=== PATIENT | female | born 1945 | race Caucasian/White ===

== ENCOUNTER 2016-12-16 18:40 | Emergency (ER) | payer OTHER ==
[~2016-12-16] VITALS: Ht 149.9 cm; Wt 101.0 kg
[~2016-12-16 18:40] MED LIST: ACET-1256 PO; ATOR-24 PO; CARV3.12 PO; CLOP1TAB54 PO; DIPH25CA37 PO; ERGO1CAP35 PO; FRS/40 PO; HYDR-4079 PO; ISOS30TA3 PO; LEVO150T PO; LOSA25TA18 PO; METO2.5T PO; NYST80OI TOP; PEDICHW50 PO; SERT100T PO
[2016-12-16 19:02] VITALS: BP 135/76; PULSE 90; TEMP 37; O2SAT 97; Ht 149.9 cm; Wt 101.0 kg
[2016-12-16] MEDS ORDERED: HYDROCODONE/ACETAMOPHEN 5/325MG TAB PO ONE (19:30)
--- NOTE | 2016-12-16 23:20 | EMERGENCY ROOM VISIT NOTE ---
History First contact with patient: 19:09 Chief Complaint: PAIN (GENERALIZED) Stated Complaint: PAIN History of Present Illness The patient is a 71 year old female who presents to the Emergency Room with complaints of generalized pain from the top of her head all the way down to her toes. The patient states that she has a long-standing history of pain with multiple back surgeries performed locally. She does not have a recent injury or trauma. No fevers or chills. The patient is specifically requesting that we provide her Vicodin, as she was evidently on this through her primary care physician's office. The patient states that "they stopped giving it to me", and she is in the process of establishing with a new primary care physician. Evidently this appointment does not happen for another 2 weeks patient rates her overall discomfort a 10/10. Review of Systems More than 10 systems were reviewed and otherwise negative with the exception of history of present illness. Past Medical/Surgical History Medical Problems: (1) Chronic back pain (2) Chronic knee pain Family History No pertinent family history Social History Smoking Status: Current Every Day Smoker Alcohol Use: none Marital Status: Housing Status: lives alone Occupation Status: retired, disabled Allergies Coded Allergies: Adhesives (Verified Allergy, Severe, HIVES, 11/20/13) Aspirin (Verified Allergy, Intermediate, HIVES, 11/20/13) NSAIDs (Verified Allergy, Intermediate, HIVES, 11/20/13) Physical Exam Vital Signs Date Time Temp Pulse Resp B/P Pulse Ox O2 Delivery O2 Flow Rate FiO2 12/16/16 19:02 37.0 90 18 135/76 97 Room Air Pain Rating (0-10): 9.0 Physical Exam VITALS: Vitals are noted on the nurse's note and reviewed by myself. Vital signs stable. GENERAL: Well-developed, well-nourished, white female, who is in no acute distress and seated comfortably in a wheelchair HEAD: Normocephalic atraumatic. HEART: Regular rate and rhythm without murmurs gallops or rubs. LUNGS: Clear to auscultation bilaterally without wheezes, rales or rhonchi. No retractions or accessory muscle use. Medical Decision & Procedures Medications Administered Medications (Trade) Dose Ordered Sig/Tyron Route Start Time Stop Time Status Last Admin Dose Admin Acetaminophen/ Hydrocodone Bitart ([place] 5/325 Tab) 1 tab NOW ONCE PO 12/16/16 19:30 12/16/16 19:31 DC 12/16/16 19:36 1 TAB ED Course Physical exam and history were performed. Nursing notes and EMR were reviewed. Patient appears to have reports of generalized pain that is chronic in nature. The patient is specifically requesting Vicodin for pain control. She was evidently on this medication for several years and recently this was discontinued by her primary care physician. The patient is not able to adequately explain why this occurred. I was able to review the [facility] and the [place] drug monitoring program site. The patient was previously on 6 pills of Vicodin 10/ 325 mg for at least 8 months. Because of her advanced age and reliance on high doses of narcotics the primary care physician recommended the patient follow with pain management. Evidently despite this recommendation, the patient refused to be seen by the pain clinic. Over the course of several months the patient was educated that they would no longer continue providing her narcotics. The patient was ultimately placed on a tapering dose of Vicodin in September 2016, and she would've completed this sometime in October 2016. In response to being taken off narcotics, the patient fired her primary care physician, and is now in the process of reestablishing with another provider. The patient has not had Vicodin in at least one month. I discussed these findings with the patient, who continue to give alternative accounts of the recent history. I thoroughly explained to the patient how the emergency department was not able to provide chronic pain medication. These services must be provided to her primary care physician, who she fired for not giving narcotics. The patient has yet to establish with a new primary care physician, and refuses pain management referrals. I explained that I would treat the patient's pain here in the emergency department with 1 Vicodin 5/325 mg by mouth. The patient must contact her PCPs office for further care. She was otherwise invited back to the ER with any new, worsening, or concerning symptoms. Prior to discharge, the patient was overheard yelling at her family "I can't believe I spend $75 and all I got was one Vicodin". I do suspect strong drug-seeking behavior as one of the primary reasons for the patient's presentation today. I do not feel she should receive prescriptions in the future for controlled substances. The chart was completed utilizing [employer] Speech Voice Recognition Software. Grammatical errors, random word insertions, pronoun errors, and incomplete sentences are an occasional consequence of this system due to software limitations, ambient noise, and hardware issues. Any formal questions or concerns about the content, text, or information contained within the body of this dictation should be directly addressed to the provider for clarification. . Medical Decision Differential diagnosis includes, but is not limited to: Chronic pain, narcotic withdrawal, drug-seeking behavior, and others Impression Primary Impression: Generalized pain Departure Information Dispostion Home / Self-Care Condition GOOD Forms HOME CARE DOCUMENTATION FORM, IMPORTANT VISIT INFORMATION Patient Instructions My [facility] Additional Instructions You were seen and evaluated today on an emergency basis only. This is not a substitute for, or an effort to provide, complete comprehensive medical care. It is not possible to recognize and treat all injuries or illnesses in a single emergency department visit. For this reason it is recommended that you followup with your primary care physician as scheduled in 2 weeks for ongoing care and management. The emergency department is not able to provide ongoing pain control services. These services are provided by your primary care physician or your pain management clinic. Do not drink or drive today as you were provided narcotic medications here in the department. You are welcome to return to the emergency department anytime with new, worsening, or concerning symptoms.
[2017-02-08] MEDS ORDERED: HYDR2.5O TOP (11:15)
[2017-02-08] MEDS ORDERED: NYSTCRE11 (11:15)
[2017-02-08] MEDS ORDERED: NITR0.4S UT (11:15)
[2017-02-08] MEDS ORDERED: LEVO125T5 PO (11:15)
[2017-02-08] MEDS ORDERED: ACET-1256 PO (11:15)
[2017-02-08] MEDS ORDERED: ERGO500037 PO (11:15)
[2017-02-08] MEDS ORDERED: DIPH25CA65 PO (11:15)
[2017-02-08] MEDS ORDERED: CLOP1TAB15 PO (11:15)
[2017-02-08] MEDS ORDERED: GLC/500 PO (11:15)
[2017-02-08] MEDS ORDERED: CARV3.122 PO (11:15)
[2017-02-08] MEDS ORDERED: VNTHFA/IN INH (11:15)
[2017-02-08] MEDS ORDERED: CYAN1DRO IM (11:15)
[2017-02-08] MEDS ORDERED: SERT-234 PO (11:15)
[2017-02-08] MEDS ORDERED: ATOR-26 PO (11:15)
[2017-02-08] MEDS ORDERED: CYCL10TA6 PO (11:15)
[2017-02-08] MEDS ORDERED: LOSA1TAB PO (11:15)
[2017-02-08] MEDS ORDERED: ISOS30TA35 PO (11:15)
[2017-02-08] MEDS ORDERED: FRS/40 PO ×2 (11:15)
[2017-04-13] MEDS ORDERED: NORT25CA PO (15:33)
== END 2016-12-16 19:44 | disposition home or self-care (01) ==
LOC: C.EDB 18:42 → C.EDD 19:44
DX: R52 Pain, unspecified (principal); F17.210 Nicotine dependence, cigarettes, uncomplicated

== ENCOUNTER 2017-08-21 19:55 | Inpatient (IN) | payer OTHER ==
[~2017-08-21] VITALS: Ht 162.6 cm; Wt 90.7 kg
[~2017-08-21 19:55] MED LIST changes: -ATOR-24 PO; +ATOR-26 PO; -CARV3.12 PO; +CARV3.122 PO; +CLOP1TAB15 PO; -CLOP1TAB54 PO; +CYAN1DRO IM; -DIPH25CA37 PO; +DIPH25CA65 PO; -ERGO1CAP35 PO; +ERGO500037 PO; +GLC/500 PO; -HYDR-4079 PO; +HYDR2.5O TOP; -ISOS30TA3 PO; +ISOS30TA35 PO; +LEVO125T5 PO; -LEVO150T PO; +LOSA1TAB PO; -LOSA25TA18 PO; -METO2.5T PO; +NITR0.4S UT; +NORT25CA PO; -NYST80OI TOP; +NYSTCRE11; -PEDICHW50 PO; +SERT-234 PO; -SERT100T PO; +VNTHFA/IN INH
[2017-08-21] MEDS ORDERED: SODIUM CHLORIDE 0.9% 500ML 500 ML IV STA (20:18)
[2017-08-21 20:48] LABS: EOS % 0.4 %; EOS ABS # 0.03 K/uL (0-0.5); HEMATOCRIT 37.3 % (37-47); HEMOGLOBIN 12.3 g/dL (12.0-16.0); IG# 0.02 K/uL (0.00-0.02); LYMPH % 12.3 %; LYMPH ABS # 0.93 K/uL (1.2-3.4); MEAN CELL VOLUME 99.7 fL (80-100); MEAN CORPUSCULAR HEMOGLOBIN 32.9 pg (25-34); MEAN PLATELET VOLUME 11.1 fL (7.4-10.4); MONO % 13.8 %; MONO ABS # 1.04 K/uL (0.11-0.59); NEUT % 73.2 %; NEUT ABS # 5.54 K/uL (1.4-6.5); PLATELET COUNT 132 K/uL (130-400); RED CELL DISTRIBUTION WIDTH CV 13.4 % (11.5-14.5); RED CELL DISTRIBUTION WIDTH SD 48.5 fL (36.4-46.3); WHITE BLOOD COUNT 7.56 K/uL (4.8-10.8)
[2017-08-21 21:06] LABS: INR 1.1 (0.9-1.1)
--- NOTE | 2017-08-21 21:30 | DIAGNOSTIC IMAGING REPORT ---
CT OF THE HEAD WITHOUT CONTRAST CLINICAL HISTORY: Fall. Evaluate for bleed. COMPARISON STUDY: No previous studies for comparison. CT DOSE: 1074.89 mGy.cm TECHNIQUE: Helical axial images of the head were obtained without IV contrast. Automated exposure control was utilized for the study. A dose lowering technique was utilized adhering to the principles of ALARA. FINDINGS: No acute intracranial hemorrhage, midline shift or mass effect is present. Ventricular system is normal. Basilar cisterns are patent. There are no extra-axial collections. White matter hypodensities suggest small vessel disease. A small radiodensity within the posterior aspect of the right globe is unchanged since CT of October 14, 2012. There is no calvarial fracture. IMPRESSION: 1. No acute intracranial findings. 2. No calvarial fracture. Electronically signed by: Servando Culp M.D. 08/21/2017 9:29 PM Dictated Date/Time: 08/21/2017 9:25 PM
--- NOTE | 2017-08-21 21:49 | DIAGNOSTIC IMAGING REPORT ---
CHEST ONE VIEW PORTABLE CLINICAL HISTORY: Left-sided body pain following fall. COMPARISON STUDY: Chest radiograph January 16, 2015. FINDINGS: Patient is rotated which accentuates mediastinal widening. Allowing for patient rotation, the cardiomediastinal silhouette is likely unchanged. There is mild right lower lung opacity. There is no evidence for pulmonary edema. No pneumothorax or pleural effusion is noted. IMPRESSION: 1. Mild right lower lung opacity which could reflect atelectasis or an infectious process. Radiographic follow-up is recommended. 2. Rotated study. 3. No pneumothorax. 4. Cardiomegaly without evidence for pulmonary edema. Electronically signed by: Servando Culp M.D. 08/21/2017 9:47 PM Dictated Date/Time: 08/21/2017 9:44 PM
--- NOTE | 2017-08-21 21:50 | DIAGNOSTIC IMAGING REPORT ---
L SHOULDER MIN 2 VIEWS ROUTINE CLINICAL HISTORY: Left shoulder pain following fall. COMPARISON: None FINDINGS: Alignment of the left shoulder is anatomic. No acute fracture is identified. Calcific material along the superolateral aspect of the left humeral head could reflect calcific tendinitis or chondrocalcinosis. There is moderate arthritis of the left acromioclavicular joint and mild to moderate arthritis of the left glenohumeral joint. IMPRESSION: No acute fracture or dislocation of the left shoulder. Electronically signed by: Servando Culp M.D. 08/21/2017 9:49 PM Dictated Date/Time: 08/21/2017 9:47 PM
--- NOTE | 2017-08-21 21:54 | DIAGNOSTIC IMAGING REPORT ---
L HUMERUS MIN 2 VIEWS ROUTINE CLINICAL HISTORY: Left arm pain following fall. COMPARISON: None FINDINGS: There is no acute fracture of the left humerus. Alignment of the left elbow and shoulder is anatomic. Moderate degenerative changes are present. There are a few possible age indeterminate nondisplaced left-sided rib fractures. IMPRESSION: 1. No acute fracture of the left humerus. 2. Several possible acute nondisplaced left lateral rib fractures. Electronically signed by: Servando Culp M.D. 08/21/2017 9:53 PM Dictated Date/Time: 08/21/2017 9:49 PM
--- NOTE | 2017-08-21 21:56 | DIAGNOSTIC IMAGING REPORT ---
PELVIS 1 OR 2 VIEW ROUTINE CLINICAL HISTORY: Pain following fall. Evaluate for fracture. COMPARISON STUDY: CT of the abdomen and pelvis January 17, 2015. FINDINGS: Positioning on this exam was difficult. However, no acute fracture within the pelvis or hips was identified. Postoperative findings within the lumbosacral spine are noted. A few mildly dilated loops of small bowel are noted. There is gas within portions of the colon. IMPRESSION: 1. Study compromised by difficulty with positioning. However, no acute fracture identified within the pelvis or hips. 2. A few mildly dilated loops of small bowel without convincing evidence for a small bowel obstruction. Electronically signed by: Servando Culp M.D. 08/21/2017 9:55 PM Dictated Date/Time: 08/21/2017 9:53 PM
--- NOTE | 2017-08-21 21:59 | DIAGNOSTIC IMAGING REPORT ---
CT OF THE CERVICAL SPINE WITHOUT CONTRAST CLINICAL HISTORY: Fall. Evaluate for fracture. COMPARISON STUDY: Neck CT October 14, 2012. TECHNIQUE: Helical axial images of the cervical spine were obtained without IV contrast. Sagittal and coronal reconstructions were viewed. A dose lowering technique was utilized adhering to the principles of ALARA. FINDINGS: There is mild rightward curvature of the cervical spine which may be positional. Craniocervical junction is in intact. There is no acute cervical spine fracture. Facet joints are intact. There is moderate to severe multilevel degenerative disc disease and moderate multilevel facet arthrosis of the cervical spine. Marked degenerative changes at the C1-C2 articulation are noted. There is no prevertebral edema. There is mild loss of height of the inferior endplate of T2. This suggests an age indeterminate mild compression fracture. IMPRESSION: 1. No acute cervical spine fracture or subluxation. 2. Mild age indeterminate compression fracture of the inferior endplate of T2. Electronically signed by: Servando Culp M.D. 08/21/2017 9:58 PM Dictated Date/Time: 08/21/2017 9:29 PM
[2017-08-21] MEDS ORDERED: FENTANYL CITRATE INJ 50 MCG/1 ML 2 ML VIAL IV STA (22:11)
[2017-08-21] MEDS ORDERED: ONDANSETRON INJ 2 MG/ML 2 ML VIAL IV STA (22:11)
--- NOTE | 2017-08-21 22:54 | DIAGNOSTIC IMAGING REPORT ---
L RIBS UNILATERAL MIN 2 VIEWS CLINICAL HISTORY: Fall. Evaluate for fracture. COMPARISON STUDY: Chest radiograph January 16, 2015. FINDINGS: There is a possible acute nondisplaced fracture of the anterior left sixth rib. No left pneumothorax is identified. Postoperative findings within the lumbosacral spine are noted as well as left upper quadrant bowel anastomosis. IMPRESSION: Possible acute nondisplaced fracture of the anterior left sixth rib. Electronically signed by: Servando Culp M.D. 08/21/2017 10:52 PM Dictated Date/Time: 08/21/2017 10:47 PM
[2017-08-21 23:01] LABS: ALBUMIN 3.7 gm/dl (3.4-5.0); ALKALINE PHOSPHATASE 103 U/L (45-117); ALT/SGPT 30 U/L (12-78); BLOOD UREA NITROGEN 30 mg/dl (7-18); CARBON DIOXIDE 22 mmol/L (21-32); CREATININE 0.97 mg/dl (0.60-1.20); GLUCOSE 142 mg/dl (70-99); POTASSIUM 3.7 mmol/L (3.5-5.1); SODIUM 138 mmol/L (136-145)
[2017-08-21 23:07] LABS: AST/SGOT 23 U/L (15-37); CKMB 4.2 ng/ml (0.5-3.6); TOTAL PROTEIN 7.2 gm/dl (6.4-8.2)
--- NOTE | 2017-08-21 23:49 | EMERGENCY ROOM VISIT NOTE ---
History Report prepared by Erin: Ame Garmajo Under the Supervision of: Dr. Darshan García M.D. First contact with patient: 20:08 Chief Complaint: FALL Stated Complaint: LETHARGIC History of Present Illness The patient is a 72 year old female who presents to the Emergency Room with complaints of a fall today. She reports she hit her head and has a headache and pain all over her body. Her pain is worse on her left side. Movement of her arm worsens her pain. The patient denies any LOC, fever, SOB, vomiting. She has history of aneurysms in her abdomen which are nonoperable. She is accompanied by her daughter who reports she has fallen 3 times in the past week. The patient states that she starts to lose her balance and then falls to the ground. She does not have any weakness prior to falling or any symptoms such as chest pain or palpitations prior to falling. Her daughter reports she has also been hallucinating lately and think there is stuff on her hands. The patient reports she has never had a stroke. As per nursing, the medic says she has Raynaud's. The patient fell in the middle of the night and was not able to get up by herself. 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 A total of 10 systems reviewed and were otherwise negative. Past Medical & Surgical Medical Problems: (1) Chronic back pain (2) Chronic knee pain (3) Concussion Family History Patient reports no known family medical history. Social History Smoking Status: Current Every Day Smoker Alcohol Use: none Marital Status: Housing Status: lives alone Occupation Status: retired, disabled Current/Historical Medications Scheduled Atorvastatin (Lipitor), 80 MG PO DAILY Carvedilol (Coreg), 3.125 MG PO BID Clopidogrel (Plavix), 75 MG PO DAILY Cyanocobalamin (Vitamin B12), 1,000 MCG IM MONTHLY Ergocalciferol (Vitamin D 80515 Unit), 50,000 UNIT PO 2XWK Furosemide (Lasix), 80 MG PO QAM Furosemide (Lasix), 40 MG PO QPM Isosorbide Mononitrate Ext Rel (Imdur Ext Rel), 1 TAB PO QAM Levothyroxine Sodium (Levothyroxine Sodium), 1 TAB PO DAILY Losartan Potassium (Cozaar), 25 MG PO DAILY Metformin Hcl (Glucophage), 500 MG PO BID Nitroglycerin (Nitrostat), 0.4 MG UT PRN Nortriptyline (Pamelor), 75 MG PO HS Sertraline (Zoloft), 200 MG PO DAILY Scheduled PRN Acetaminophen (Tylenol), 1,000 MG PO Q8 PRN for Pain Albuterol Hfa (Ventolin Hfa), 2-4 PUFFS INH Q6H PRN for Shortness of Breath Diphenhydramine Hcl (Benadryl Allergy), 1 CAP PO HS PRN for Itching Allergies Coded Allergies: Adhesives (Verified Allergy, Severe, HIVES, 11/20/13) Aspirin (Verified Allergy, Intermediate, HIVES, 11/20/13) NSAIDs (Verified Allergy, Intermediate, HIVES, 11/20/13) Physical Exam Vital Signs Date Time Temp Pulse Resp B/P (MAP) Pulse Ox O2 Delivery O2 Flow Rate FiO2 08/21/17 22:23 107 20 146/64 95 Room Air 08/21/17 20:10 37.0 101 20 112/88 95 Room Air Physical Exam Constitutional: Vital signs reviewed. Eyes: Pupils are equal round reactive to light. Conjunctiva are noninjected. ENT: Pharynx is clear without erythema or exudate. Mucous membranes are dry. Neck supple without meningeal signs. no midline tenderness to the cervical spine. Respiratory: Clear to auscultation bilaterally. Breath sounds are equal bilaterally. Cardiovascular: Regular rate and rhythm. No rubs or gallops. GI: Soft, nondistended and nontender. Bowel sounds are present. Musculoskeletal: Diffuse tenderness to the mid left humerus. Distal pulse intact and no significant hip tenderness. Integumentary: No cyanosis. Neurological: The patient is awake and alert. No focal deficits. Cranial nerves 2-12 intact. Gross motor function and sensation intact throughout extremities. Psychiatric: Normal affect. Medical Decision & Procedures ER Provider Diagnostic Interpretation: Radiology results as stated below per my review and the radiologist's interpretation: L SHOULDER MIN 2 VIEWS ROUTINE CLINICAL HISTORY: Left shoulder pain following fall. COMPARISON: None FINDINGS: Alignment of the left shoulder is anatomic. No acute fracture is identified. Calcific material along the superolateral aspect of the left humeral head could reflect calcific tendinitis or chondrocalcinosis. There is moderate arthritis of the left acromioclavicular joint and mild to moderate arthritis of the left glenohumeral joint. IMPRESSION: No acute fracture or dislocation of the left shoulder. Electronically signed by: Servando Culp M.D. 08/21/2017 9:49 PM Dictated Date/Time: 08/21/2017 9:47 PM PELVIS 1 OR 2 VIEW ROUTINE CLINICAL HISTORY: Pain following fall. Evaluate for fracture. COMPARISON STUDY: CT of the abdomen and pelvis January 17, 2015. FINDINGS: Positioning on this exam was difficult. However, no acute fracture within the pelvis or hips was identified. Postoperative findings within the lumbosacral spine are noted. A few mildly dilated loops of small bowel are noted. There is gas within portions of the colon. IMPRESSION: 1. Study compromised by difficulty with positioning. However, no acute fracture identified within the pelvis or hips. 2. A few mildly dilated loops of small bowel without convincing evidence for a small bowel obstruction. Electronically signed by: Servando Culp M.D. 08/21/2017 9:55 PM Dictated Date/Time: 08/21/2017 9:53 PM L HUMERUS MIN 2 VIEWS ROUTINE CLINICAL HISTORY: Left arm pain following fall. COMPARISON: None FINDINGS: There is no acute fracture of the left humerus. Alignment of the left elbow and shoulder is anatomic. Moderate degenerative changes are present. There are a few possible age indeterminate nondisplaced left-sided rib fractures. IMPRESSION: 1. No acute fracture of the left humerus. 2. Several possible acute nondisplaced left lateral rib fractures. Electronically signed by: Servando Culp M.D. 08/21/2017 9:53 PM Dictated Date/Time: 08/21/2017 9:[address] OF THE HEAD WITHOUT CONTRAST CLINICAL HISTORY: Fall. Evaluate for bleed. COMPARISON STUDY: No previous studies for comparison. CT DOSE: 1074.89 mGy.cm TECHNIQUE: Helical axial images of the head were obtained without IV contrast. Automated exposure control was utilized for the study. A dose lowering technique was utilized adhering to the principles of ALARA. FINDINGS: No acute intracranial hemorrhage, midline shift or mass effect is present. Ventricular system is normal. Basilar cisterns are patent. There are no extra-axial collections. White matter hypodensities suggest small vessel disease. A small radiodensity within the posterior aspect of the right globe is unchanged since CT of October 14, 2012. There is no calvarial fracture. IMPRESSION: 1. No acute intracranial findings. 2. No calvarial fracture. Electronically signed by: Servando Culp M.D. 08/21/2017 9:29 PM Dictated Date/Time: 08/21/2017 9:25 PM CHEST ONE VIEW PORTABLE CLINICAL HISTORY: Left-sided body pain following fall. COMPARISON STUDY: Chest radiograph January 16, 2015. FINDINGS: Patient is rotated which accentuates mediastinal widening. Allowing for patient rotation, the cardiomediastinal silhouette is likely unchanged. There is mild right lower lung opacity. There is no evidence for pulmonary edema. No pneumothorax or pleural effusion is noted. IMPRESSION: 1. Mild right lower lung opacity which could reflect atelectasis or an infectious process. Radiographic follow-up is recommended. 2. Rotated study. 3. No pneumothorax. 4. Cardiomegaly without evidence for pulmonary edema. Electronically signed by: Servando Culp M.D. 08/21/2017 9:47 PM Dictated Date/Time: 08/21/2017 9:[address] OF THE CERVICAL SPINE WITHOUT CONTRAST CLINICAL HISTORY: Fall. Evaluate for fracture. COMPARISON STUDY: Neck CT October 14, 2012. TECHNIQUE: Helical axial images of the cervical spine were obtained without IV contrast. Sagittal and coronal reconstructions were viewed. A dose lowering technique was utilized adhering to the principles of ALARA. FINDINGS: There is mild rightward curvature of the cervical spine which may be positional. Craniocervical junction is in intact. There is no acute cervical spine fracture. Facet joints are intact. There is moderate to severe multilevel degenerative disc disease and moderate multilevel facet arthrosis of the cervical spine. Marked degenerative changes at the C1-C2 articulation are noted. There is no prevertebral edema. There is mild loss of height of the inferior endplate of T2. This suggests an age indeterminate mild compression fracture. IMPRESSION: 1. No acute cervical spine fracture or subluxation. 2. Mild age indeterminate compression fracture of the inferior endplate of T2. Electronically signed by: Servando Culp M.D. 08/21/2017 9:58 PM Dictated Date/Time: 08/21/2017 9:29 PM L RIBS UNILATERAL MIN 2 VIEWS CLINICAL HISTORY: Fall. Evaluate for fracture. COMPARISON STUDY: Chest radiograph January 16, 2015. FINDINGS: There is a possible acute nondisplaced fracture of the anterior left sixth rib. No left pneumothorax is identified. Postoperative findings within the lumbosacral spine are noted as well as left upper quadrant bowel anastomosis. IMPRESSION: Possible acute nondisplaced fracture of the anterior left sixth rib. Electronically signed by: Servando Culp M.D. 08/21/2017 10:52 PM Dictated Date/Time: 08/21/2017 10:47 PM Laboratory Results 08/21/17 20:31 Red Blood Count 3.74, Mean Corpuscular Volume 99.7, Mean Corpuscular Hemoglobin 32.9, Mean Corpuscular Hemoglobin Concent 33.0, Mean Platelet Volume 11.1, Neutrophils (%) (Auto) 73.2, Lymphocytes (%) (Auto) 12.3, Monocytes (%) (Auto) 13.8, Eosinophils (%) (Auto) 0.4, Basophils (%) (Auto) 0.0, Neutrophils # (Auto ) 5.54, Lymphocytes # (Auto) 0.93, Monocytes # (Auto) 1.04, Eosinophils # (Auto ) 0.03, Basophils # (Auto) 0.00 08/21/17 22:11 Test 08/21/17 20:31 08/21/17 21:03 08/21/17 22:11 White Blood Count 7.56 K/uL (4.8-10.8) Red Blood Count 3.74 M/uL (4.2-5.4) Hemoglobin 12.3 g/dL (12.0-16.0) Hematocrit 37.3 % (37-47) Mean Corpuscular Volume 99.7 fL (80-100) Mean Corpuscular Hemoglobin 32.9 pg (25-34) Mean Corpuscular Hemoglobin Concent 33.0 g/dl (32-36) Platelet Count 132 K/uL (130-400) Mean Platelet Volume 11.1 fL (7.4-10.4) Neutrophils (%) (Auto) 73.2 % Lymphocytes (%) (Auto) 12.3 % Monocytes (%) (Auto) 13.8 % Eosinophils (%) (Auto) 0.4 % Basophils (%) (Auto) 0.0 % Neutrophils # (Auto) 5.54 K/uL (1.4-6.5) Lymphocytes # (Auto) 0.93 K/uL (1.2-3.4) Monocytes # (Auto) 1.04 K/uL (0.11-0.59) Eosinophils # (Auto) 0.03 K/uL (0-0.5) Basophils # (Auto) 0.00 K/uL (0-0.2) RDW Standard Deviation 48.5 fL (36.4-46.3) RDW Coefficient of Variation 13.4 % (11.5-14.5) Immature Granulocyte % (Auto) 0.3 % Immature Granulocyte # (Auto) 0.02 K/uL (0.00-0.02) Prothrombin Time 11.4 SECONDS (9.0-12.0) Prothromb Time International Ratio 1.1 (0.9-1.1) Activated Partial Thromboplast Time 30.0 SECONDS (21.0-31.0) Partial Thromboplastin Ratio 1.2 Urine Color YELLOW Urine Appearance CLEAR (CLEAR) Urine pH 5.0 (4.5-7.5) Urine Specific [place] 1.023 (1.000-1.030) Urine Protein NEG (NEG) Urine Glucose (UA) NEG (NEG) Urine Ketones TRACE (NEG) Urine Occult Blood NEG (NEG) Urine Nitrite NEG (NEG) Urine Bilirubin NEG (NEG) Urine Urobilinogen NEG (NEG) Urine Leukocyte Esterase TRACE (NEG) Urine WBC (Auto) 1-5 /hpf (0-5) Urine RBC (Auto) 5-10 /hpf (0-4) Urine Hyaline Casts (Auto) 1-5 /lpf (0-5) Urine Epithelial Cells (Auto) 5-10 /lpf (0-5) Urine Bacteria (Auto) NEG (NEG) Anion Gap 9.0 mmol/L (3-11) Est Creatinine Clear Calc Drug Dose 61.5 ml/min Estimated GFR () 68.1 Estimated GFR (Non- 58.8 BUN/Creatinine Ratio 31.0 (10-20) Calcium Level 10.0 mg/dl (8.5-10.1) Total Bilirubin 1.1 mg/dl (0.2-1) Direct Bilirubin 0.4 mg/dl (0-0.2) Aspartate Amino Transf (AST/SGOT) 23 U/L (15-37) Alanine Aminotransferase (ALT/SGPT) 30 U/L (12-78) Alkaline Phosphatase 103 U/L (45-117) Total Creatine Kinase 210 U/L (26-192) Creatine Kinase MB 4.2 ng/ml (0.5-3.6) Creatine Kinase MB Ratio 2.0 (0-3.0) Troponin I < 0.015 ng/ml (0-0.045) Total Protein 7.2 gm/dl (6.4-8.2) Albumin 3.7 gm/dl (3.4-5.0) Laboratory results as reviewed by me. Medications Administered Medications (Trade) Dose Ordered Sig/Tyron Route Start Time Stop Time Status Last Admin Dose Admin Sodium Chloride 500 ml @ 999 mls/hr Q31M STAT IV 08/21/17 20:18 08/21/17 20:48 DC 08/21/17 21:07 999 MLS/HR Fentanyl Citrate (Fentanyl Inj) 50 mcg NOW STAT IV 08/21/17 22:11 08/21/17 22:13 DC 08/21/17 22:50 50 MCG ECG Indication: weakness Rate (beats per minute): 100 Rhythm: sinus rhythm Findings: PVC Comparison ECG Date: Change: Limited interpretation due to baseline artifact Patient's electrocardiogram per my interpretation. ED Course 2014: The patient was evaluated in room B12. A complete history and physical exam was performed. 2018: Ordered Sodium Chloride 500 ml @ 999 mls/hr 2210: I discussed her imaging results with her. She is requesting some pain. 2210: Ordered Zofran Inj 4 mg IV Fentanyl Inj 50 mcg IV 2210: I discussed her imaging results with her. She is requesting some pain medication. 2300: I discussed her test results with her. She is agreeable with the treatment plan. She will be further evaluated. 2319: I spoke with Dr. Mcmanus, [facility]. We discussed the patient and her results. The patient will be further evaluated by him. Medical Decision This is a 72-year-old female who presents with frequent falls and injury from fall. Differential diagnosis includes intracranial hemorrhage, concussion, skull fracture, rib fracture, humeral fracture, rhabdomyolysis, anemia. I did perform a limited focused review of portions of the patient's old chart on the electronic medical record. The patient sees pain management for his chronic back pain and was on baclofen. I did evaluate the patient as noted above. IV access was established. The patient was placed on a continuous property assessment monitor. I did treat patient with IV fentanyl, Zofran and normal saline. I did order and personally review the patient's 12-lead EKG and x-rays as described above. She has no acute fractures other than a nondisplaced left sixth rib fracture. No pneumothorax is noted. I did order and review the patient's blood work as noted in the electronic medical record. I did order a CT of the head and cervical spine. I did review the images myself as well as the radiology report as described above. There is no evidence of intracranial hemorrhage or cervical fracture. I did discuss the test results with the patient. I did discuss the case with the hospitalist and director case. Medication Reconcilliation Current Medication List: was personally reviewed by me Blood Pressure Screening Patient's blood pressure: Normal blood pressure Blood pressure disposition: Did not require urgent referral Consults Time Called: 2314 Consulting Physician: Dr. Mcmanus [facility]ist Returned Call: [phone] He will further evaluate the patient. Impression Primary Impression: Acute head injury Additional Impressions: Generalized weakness Left rib fracture Frequent falls Scribe Attestation The scribe's documentation has been prepared under my direct and personally reviewed by me in its entirety. I confirm that the note above accurately reflects all work, treatment, procedures, and medical decision making performed by me. Departure Information Dispostion Being Evaluated By Hospitalist Referrals Richie Fallon MD (PCP) Forms HOME CARE DOCUMENTATION FORM, IMPORTANT VISIT INFORMATION Patient Instructions [facility] Problem Qualifiers Primary Impression: Acute head injury Encounter type: initial encounter Qualified Codes: S09.90XA - Unspecified injury of head, initial encounter Additional Impressions: Left rib fracture Encounter type: initial encounter Rib fracture type: single rib Fracture type: closed Qualified Codes: S22.32XA - Fracture of one rib, left side, initial encounter for closed fracture
[2017-08-22] VITALS (10 sets, daily range): BP systolic 117–139; BP diastolic 60–85; PULSE 50–112; TEMP 36.7–37.8; O2SAT 93–96; Ht 162.6 cm; Wt 90.7 kg
[2017-08-22] MEDS ORDERED: GLUCOSE 40% GEL 15 GM TUBE PO PRN (00:45)
[2017-08-22] MEDS ORDERED: DEXTROSE 50% 50 ML SYR IV PRN (00:45)
[2017-08-22] MEDS ORDERED: GLUCOSE 10 TABS/TUBE PO PRN (00:45)
[2017-08-22] MEDS ORDERED: NITROGLYCERIN 0.4 MG SL PER TAB CHARGE SL PRN (00:45)
[2017-08-22] MEDS ORDERED: GLUCAGON FOR INJ 1 MG VIAL SQ PRN (00:45)
[2017-08-22] MEDS ORDERED: PROCHLORPERAZINE INJ 5 MG in SYRINGE 4 ML IV PRN (00:45)
[2017-08-22] MEDS ORDERED: TRAMADOL HCL 50 MG TAB PO PRN (00:45)
[2017-08-22] MEDS ORDERED: NSS + 20MEQ KCL 1000ML 1,000 ML IV ONE (01:15)
[2017-08-22] MEDS ORDERED: INSULIN ASPART 100 UNITS/ML 3 ML PEN SC ONE (01:15)
[2017-08-22] MEDS ORDERED: POTASSIUM CHLORIDE 10 MEQ TABCR PO STA (01:24)
[2017-08-22] MEDS: MAGNESIUM SULFATE 1GM / D5W 1 GM in PREMIXED IN D5W 100 ML IV SCH ×2 (01:52→03:00)
[2017-08-22] MEDS: NICOTINE 21 MG/24 HR TDSY TD SCH (02:09)
[2017-08-22] MEDS ORDERED: CARVEDILOL 3.125 MG TAB PO ONE (03:45)
[2017-08-22] MEDS ORDERED: IV FLUIDS COMPLETED PRN (04:00)
--- NOTE | 2017-08-22 05:01 | HISTORY & PHYSICAL EXAMINATION ---
DATE OF ADMISSION: 08/21/2017 PRIMARY CARE DOCTOR: Richie Fallon MD CHIEF COMPLAINT: Fall. HISTORY OF PRESENT ILLNESS: History obtained from patient, family, and records. Patient is a fair historian. Medical history significant for CAD, status post stenting, PVD, gastric bypass, hypertension, DM2 on oral meds, ongoing tobacco abuse, chronic back pain sp surgery , myofascial pain syndrome as per records, LAMBERT on CPAP, primary hyperparathyroidism status post surgery, ongoing tobacco abuse. Recent confinement in 2012 for back surgery under Orthopedic service. Patient chronic back pain unimproved after surgery. Been off Vicodin for more than a year now since former PCP left [facility]. As per patient, her 2 subsequent family doctors were not comfortable prescribing Vicodin prescription; hx terminated JAVIER as per records. Patient referred to [facility]. Prescribed nortriptyline, muscle relaxants somewhat working. Patient's family have had increased worries in the last month w/ patient having episodic confusion, forgetfulness, sleepiness from time to time, visual hallucinations, recurrent falls. No syncope/witnessed syncopal events as per patient/family. Patient feels that she is just going to fall down. No bowel, no bladder incontinence. No seizures, no lightheadedness. Patient's family thinks she is taking more OTC Benadryl than she should even when she is not itching. Tonight, the patient had another fall, hit her head, having pain all over, pain on moving left upper extremity. No chest pain, no shortness of breath, no syncope, no LOC. Patient denies dysuria symptoms. MEDICAL HISTORY: As above. A 2D echo from September 2015 showed EF of 60% and LVH. AAA from December 2006 showed stable aneurysm 3.9 x 4 cm. Patient following with [facility] Vascular surgery. SURGERIES: She has had back surgery, appendectomy, hysterectomy, tonsillectomy, gastric bypass, parathyroidectomy HOME MEDICATIONS: Include Ventolin, Lipitor, Tylenol, Coreg, Plavix, vitamin B2, Benadryl, Lasix, Imdur ER, levothyroxine, Glucophage, Nitrostat, Zoloft, losartan. ALLERGIES: TO ADHESIVES, ASPIRIN, NSAIDs. FAMILY HISTORY: There is a family history of heart disease, diabetes, skin cancer, pancreatic cancer. PERSONAL AND SOCIAL HISTORY: Pack daily. No chronic intake of alcoholic beverages. 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 REVIEW OF SYSTEMS: As per HPI, all 10 systems reviewed, all others negative. PHYSICAL EXAMINATION: VITAL SIGNS: Blood pressure noted to be 112/88, pulse rate 80, RR 18, temp 36.7, sats 95 on room air. GENERAL: Noted to be obese, uncomfortable, slightly hard of hearing, episodic lethargy. SKIN: Normal color. Warm. HEENT: Contusion, right supraorbital area . [place] palpebral conjunctivae.No ptosis. Dry mucosa. NECK: Supple, nontender. A healed incisional scar. CHEST: Clear to auscultation. No tenderness. minimal tenderness on the left chest wall. HEART: Regular rate and rhythm, no murmur. ABDOMEN: Soft, nontender. EXTREMITIES: No edema. No gross deformities. Tenderness LUE NEUROLOGIC: Coherent, episodic lethargy. Otherwise, no gross focality. Gait and stance not assessed. LABORATORIES: Hemoglobin 12.3, white cell count 10, platelets 132. Sodium 138, potassium 3.7, chloride 107, CO2 22, BUN 30, creatinine 0.9, glucose 142. trop 0 UA ketones, WBC esterase positive, hyaline cast. Epithelial cells CT head, no acute pathology. EKG as per my interpretation, rate 100, normal sinus rhythm with PVCs, no ischemia, PRWP. L humeral Xray, arthritis L shoulder Xray : Moderate arthritis, multiple L rib fractures Rib series multiple left rib fractures ASSESSMENT AND PLAN: 1. Episodic encephalopathy, forgetfulness, hallucinations, recurrent falls likely secondary to polypharmacy (muscle relaxants, excessive OTC Benadryl intake as per family in particular) chronic back pain status post surgery/hx myofascial pain syndrome as per records history of terminated narcotic agreement as per outpatient records Clinical dehydration secondary to symptoms Rule out orthostasis, arrhythmia as etiology of recurrent falls ro structural intracranial pathology 2. CAD sp stenting/hx PVD 3. Traumatic LUE pain (no fractures on plain imaging) 4. L rib fracture secondary to mechanical fall 5. hypertension, stable 6. history of gastric bypass 7. DM2 on oral meds, well controlled as of recent outpatient HgA1c of 5.9 in May 2017. 8. hx primary hyperparathyroidism status post surgery 9. ongoing tobacco abuse 10. Asymptomatic pyuria, no sepsis PLAN: Observation PCU check orthostatic vitals. MRI of the brain. RE episodic encephalopathy, forgetfulness. IVF, Hold home diuretics for now Patient counseled about the dangers off inordinate Benadryl, muscle relaxant intake ISS BG goal 140-180. Nicotine patch. PT OT eval Social service RE : discharge planning DVT prophylaxis with Lovenox subQ. Full code. Patient's daughter is requesting updates from providers. Miss Skinner Abelardo at [phone]. [facility]
[2017-08-22] MEDS: LEVOTHYROXINE 125 MCG TAB PO SCH (05:46)
[2017-08-22] MEDS: ENOXAPARIN 40 MG/0.4 ML SYR SC SCH (05:47)
[2017-08-22 06:09] LABS: BASO % 0.1 %; BASO ABS # 0.01 K/uL (0-0.2); HEMATOCRIT 35.7 % (37-47); HEMOGLOBIN 11.8 g/dL (12.0-16.0); IG# 0.02 K/uL (0.00-0.02); LYMPH % 7.5 %; LYMPH ABS # 0.61 K/uL (1.2-3.4); MEAN CELL VOLUME 98.9 fL (80-100); MEAN CORPUSCULAR HEMOGLOBIN 32.7 pg (25-34); MEAN CORPUSCULAR HGB CONC 33.1 g/dl (32-36); MEAN PLATELET VOLUME 11.3 fL (7.4-10.4); MONO % 17.1 %; MONO ABS # 1.39 K/uL (0.11-0.59); NEUT % 75.1 %; NEUT ABS # 6.08 K/uL (1.4-6.5); PLATELET COUNT 125 K/uL (130-400); RED CELL DISTRIBUTION WIDTH CV 13.1 % (11.5-14.5); RED CELL DISTRIBUTION WIDTH SD 47.5 fL (36.4-46.3); WHITE BLOOD COUNT 8.11 K/uL (4.8-10.8)
[2017-08-22 06:40] LABS: CALCIUM 9.8 mg/dl (8.5-10.1); CREATININE 0.8 mg/dl (0.60-1.20); POTASSIUM 3.8 mmol/L (3.5-5.1)
[2017-08-22] MEDS: LIDODERM (LIDOCAINE) PATCH 5% TD ONE ×2 (07:12→08:46)
[2017-08-22] MEDS: LOSARTAN POTASSIUM 25 MG TAB PO SCH (08:46)
[2017-08-22] MEDS: CLOPIDOGREL BISULFATE 75 MG TAB PO SCH (08:47)
[2017-08-22] MEDS: ISOSORBIDE MONONITRATE 30 MG TABCR PO SCH (08:47)
[2017-08-22] MEDS: SERTRALINE HCL 100 MG TAB PO SCH (08:47)
[2017-08-22] MEDS: INSULIN ASPART 100 UNITS/ML 3 ML PEN SC SCH ×4 (08:51→21:00)
[2017-08-22] MEDS ORDERED: CARVEDILOL 3.125 MG TAB PO SCH (09:00)
[2017-08-22] MEDS ORDERED: GADAVIST IV PRN (10:30)
--- NOTE | 2017-08-22 10:39 | DIAGNOSTIC IMAGING REPORT ---
BRAIN COMBO CLINICAL HISTORY: 72 years-old Female presenting with episodic confusion/forgetfulness, recent falls, possibly hit head. TECHNIQUE: Multisequence, multiplanar MR imaging of the brain was performed before and after the administration of intravenous contrast. IV contrast: 9 mL of Gadavist. COMPARISON: CT head performed the previous day. FINDINGS: Image quality is degraded by motion artifact negatively affecting diagnostic sensitivity the exam. Ventricles and sulci normal in size. Periventricular and subcortical white matter T2/FLAIR hyperintensity, nonspecific but likely indicative of chronic small vessel ischemic change. No mass effect or midline shift. No restricted diffusion to suggest acute ischemia. No hemorrhage. No extra-axial fluid collection. T2 skull base flow voids preserved. No abnormal parenchymal enhancement. Bone marrow signal intensity within the calvarium within normal limits. Bilateral [place] lenses are absent. IMPRESSION: 1. Allowing for motion artifact, no acute intracranial pathology. No abnormal enhancement. 2. Chronic small vessel ischemic change. Electronically signed by: Elliot Madrid M.D. 08/22/2017 10:38 AM Dictated Date/Time: 08/22/2017 10:33 AM
[2017-08-22] MEDS: SODIUM CHLORIDE 0.9% 1000ML 1,000 ML IV SCH ×2 (12:21→23:30)
[2017-08-22 14:33] LABS: ALBUMIN 2.9 gm/dl (3.4-5.0); TOTAL PROTEIN 6.3 gm/dl (6.4-8.2)
[2017-08-22] MEDS: TRAMADOL HCL 50 MG TAB PO PRN (15:25)
--- NOTE | 2017-08-22 16:45 | Progress Note ---
Internal Med Progress Note Date of Service: Aug 22, 2017. Provider Documentation: SUBJECTIVE: Alert and awake and oriented to name and place only speech clear daughter says patient takes Benadryl for long time and several tablets daily patient says she takes it because she gets her ankles and joints swollen afebrile hemodynamics stable as per daughter patient also takes lot of Tylenol OBJECTIVE: Vital Signs-as noted below Exam: General-alert and oriented x 2. somewhat confused ENT-Normal hearing Neck-no neck masses Lungs-cta b/l no wheezing or crackles Heart-S1 and S2 heard regular rate and rhythm, no murmurs Abdomen-soft bowel sounds present no tenderness no distension Extremities no edema present no erythema Neuro-alert and awake and oriented x 2 moves extremities Lab data as noted below. ASSESSMENT & PLAN: 1. Episodic encephalopathy, forgetfulness, hallucinations, recurrent falls( as per daughter) Most likely secondary to polypharmacy (muscle relaxants, excessive OTC Benadryl intake as per family in particular) chronic back pain status post surgery/hx myofascial pain syndrome as per records history of terminated narcotic agreement as per outpatient records as per admission MRI brain unremarkable except for microvascular disease family is concerned about Alzheimer disease because of family history will monitor in tele iv fluids consulted nephrology for further recommendations 2. CAD sp stenting/hx PVD. on coreg, Imdur, losartan and plavix. 3. Traumatic LUE pain (no fractures on plain imaging) 4. L rib fracture secondary to mechanical fall pain control. 5. hypertension, stable on coreg, imdur and losartan. will monitor. 6. history of gastric bypass 7. DM2 on oral meds, well controlled as of recent outpatient HgA1c of 5.9 in May 2017. ISS in hospital. 8. hx primary hyperparathyroidism status post surgery 9. ongoing tobacco abuse 10. Asymptomatic pyuria, no sepsis DVT PROPHYLAXIS scds DISPOSITION to be determined Vital Signs: Date Time Temp Pulse Resp B/P (MAP) Pulse Ox O2 Delivery O2 Flow Rate FiO2 08/22/17 16:00 95 Room Air 08/22/17 15:15 37.2 90 20 126/60 (82) 94 08/22/17 12:51 36.9 102 20 117/79 (92) 94 Room Air 08/22/17 12:00 95 Room Air 08/22/17 08:00 95 Room Air 08/22/17 07:48 36.7 70 20 139/82 (101) 95 Room Air 08/22/17 04:05 Room Air 08/22/17 03:40 37.4 82 17 130/85 (100) 94 Room Air 08/22/17 01:44 37.3 112 18 136/68 93 Room Air 08/22/17 01:00 Room Air 08/22/17 00:43 80 18 117/89 93 08/21/17 22:23 107 20 146/64 95 Room Air 08/21/17 20:10 37.0 101 20 112/88 95 Room Air Lab Results: Results Past 24 Hours Test 08/21/17 20:18 08/21/17 20:31 08/21/17 21:03 08/21/17 22:11 Range/Units Creatine Kinase MB Ratio 2.0 0-3.0 White Blood Count 7.56 4.8-10.8 K/uL Red Blood Count 3.74 4.2-5.4 M/uL Hemoglobin 12.3 12.0-16.0 g/dL Hematocrit 37.3 37-47 % Mean Corpuscular Volume 99.7 80-100 fL Mean Corpuscular Hemoglobin 32.9 25-34 pg Mean Corpuscular Hemoglobin Concent 33.0 32-36 g/dl Platelet Count 132 130-400 K/uL Mean Platelet Volume 11.1 7.4-10.4 fL Neutrophils (%) (Auto) 73.2 % Lymphocytes (%) (Auto) 12.3 % Monocytes (%) (Auto) 13.8 % Eosinophils (%) (Auto) 0.4 % Basophils (%) (Auto) 0.0 % Neutrophils # (Auto) 5.54 1.4-6.5 K/uL Lymphocytes # (Auto) 0.93 1.2-3.4 K/uL Monocytes # (Auto) 1.04 0.11-0.59 K/uL Eosinophils # (Auto) 0.03 0-0.5 K/uL Basophils # (Auto) 0.00 0-0.2 K/uL RDW Standard Deviation 48.5 36.4-46.3 fL RDW Coefficient of Variation 13.4 11.5-14.5 % Immature Granulocyte % (Auto) 0.3 % Immature Granulocyte # (Auto) 0.02 0.00-0.02 K/uL Prothrombin Time 11.4 9.0-12.0 SECONDS Prothromb Time International Ratio 1.1 0.9-1.1 Activated Partial Thromboplast Time 30.0 21.0-31.0 SECONDS Partial Thromboplastin Ratio 1.2 Urine Color YELLOW Urine Appearance CLEAR CLEAR Urine pH 5.0 4.5-7.5 Urine Specific Semora 1.023 1.000-1.030 Urine Protein NEG NEG Urine Glucose (UA) NEG NEG Urine Ketones TRACE NEG Urine Occult Blood NEG NEG Urine Nitrite NEG NEG Urine Bilirubin NEG NEG Urine Urobilinogen NEG NEG Urine Leukocyte Esterase TRACE NEG Urine WBC (Auto) 1-5 0-5 /hpf Urine RBC (Auto) 5-10 0-4 /hpf Urine Hyaline Casts (Auto) 1-5 0-5 /lpf Urine Epithelial Cells (Auto) 5-10 0-5 /lpf Urine Bacteria (Auto) NEG NEG Urine Opiates Screen NEG NEG Urine Methadone, Qualitative NEG NEG Urine Barbiturates NEG NEG Urine Phencyclidine (PCP) Level NEG NEG Ur Amphetamine/Methamphetamine NEG NEG MDMA (Ecstasy) Screen NEG NEG Urine Benzodiazepines Screen NEG NEG Urine Cocaine Metabolite NEG NEG Urine Marijuana (THC) NEG NEG Sodium Level 138 136-145 mmol/L Potassium Level 3.7 3.5-5.1 mmol/L Chloride Level 107 98-107 mmol/L Carbon Dioxide Level 22 21-32 mmol/L Anion Gap 9.0 3-11 mmol/L Blood Urea Nitrogen 30 7-18 mg/dl Creatinine 0.97 0.60-1.20 mg/dl Est Creatinine Clear Calc Drug Dose 61.5 ml/min Estimated GFR () 68.1 Estimated GFR (Non- 58.8 BUN/Creatinine Ratio 31.0 10-20 Random Glucose 142 70-99 mg/dl Calcium Level 10.0 8.5-10.1 mg/dl Magnesium Level 1.5 1.8-2.4 mg/dl Total Bilirubin 1.1 0.2-1 mg/dl Direct Bilirubin 0.4 0-0.2 mg/dl Aspartate Amino Transf (AST/SGOT) 23 15-37 U/L Alanine Aminotransferase (ALT/SGPT) 30 12-78 U/L Alkaline Phosphatase 103 45-117 U/L Total Creatine Kinase 210 26-192 U/L Creatine Kinase MB 4.2 0.5-3.6 ng/ml Troponin I < 0.015 0-0.045 ng/ml Total Protein 7.2 6.4-8.2 gm/dl Albumin 3.7 3.4-5.0 gm/dl Thyroid Stimulating Hormone (TSH) 0.303 0.300-4.500 uIu/ml Test 08/22/17 01:02 08/22/17 01:41 08/22/17 05:37 08/22/17 06:52 Range/Units Ethyl Alcohol mg/dL < 3.0 0-3 mg/dl Bedside Glucose 162 182 70-90 mg/dl White Blood Count 8.11 4.8-10.8 K/uL Red Blood Count 3.61 4.2-5.4 M/uL Hemoglobin 11.8 12.0-16.0 g/dL Hematocrit 35.7 37-47 % Mean Corpuscular Volume 98.9 80-100 fL Mean Corpuscular Hemoglobin 32.7 25-34 pg Mean Corpuscular Hemoglobin Concent 33.1 32-36 g/dl Platelet Count 125 130-400 K/uL Mean Platelet Volume 11.3 7.4-10.4 fL Neutrophils (%) (Auto) 75.1 % Lymphocytes (%) (Auto) 7.5 % Monocytes (%) (Auto) 17.1 % Eosinophils (%) (Auto) 0.0 % Basophils (%) (Auto) 0.1 % Neutrophils # (Auto) 6.08 1.4-6.5 K/uL Lymphocytes # (Auto) 0.61 1.2-3.4 K/uL Monocytes # (Auto) 1.39 0.11-0.59 K/uL Eosinophils # (Auto) 0.00 0-0.5 K/uL Basophils # (Auto) 0.01 0-0.2 K/uL RDW Standard Deviation 47.5 36.4-46.3 fL RDW Coefficient of Variation 13.1 11.5-14.5 % Immature Granulocyte % (Auto) 0.2 % Immature Granulocyte # (Auto) 0.02 0.00-0.02 K/uL Sodium Level 136 136-145 mmol/L Potassium Level 3.8 3.5-5.1 mmol/L Chloride Level 106 98-107 mmol/L Carbon Dioxide Level 23 21-32 mmol/L Anion Gap 7.0 3-11 mmol/L Blood Urea Nitrogen 22 7-18 mg/dl Creatinine 0.80 0.60-1.20 mg/dl Est Creatinine Clear Calc Drug Dose 71.8 ml/min Estimated GFR () 86.0 Estimated GFR (Non- 74.2 BUN/Creatinine Ratio 28.2 10-20 Random Glucose 181 70-99 mg/dl Calcium Level 9.8 8.5-10.1 mg/dl Magnesium Level 2.1 1.8-2.4 mg/dl Total Creatine Kinase 178 26-192 U/L Test 08/22/17 11:24 08/22/17 13:51 08/22/17 13:57 Range/Units Bedside Glucose 154 70-90 mg/dl Total Bilirubin 1.1 0.2-1 mg/dl Direct Bilirubin 0.4 0-0.2 mg/dl Aspartate Amino Transf (AST/SGOT) 17 15-37 U/L Alanine Aminotransferase (ALT/SGPT) 25 12-78 U/L Alkaline Phosphatase 85 45-117 U/L Total Protein 6.3 6.4-8.2 gm/dl Albumin 2.9 3.4-5.0 gm/dl Salicylates Level < 1.7 2.8-20 mg/dl Acetaminophen Level < 2 10-30 ug/ml Arterial Blood pH 7.46 7.35-7.45 Arterial Blood Partial Pressure CO2 31 35-46 mmHg Arterial Blood Partial Pressure O2 67 80-95 mm/Hg Arterial Blood HCO3 22 19-24 mmol/L Arterial Blood Oxygen Saturation 92.5 90-95 % Arterial Blood Base Excess -1.4 -9-1.8 mEq/L Arterial Blood Gas Delivery RA Laron Test POS POS Microbiology Results 08/21/17 Urine Culture, Received Pending
[2017-08-22] MEDS: ACETAMINOPHEN 325 MG TAB PO PRN ×2 (17:02→21:25)
[2017-08-22] MEDS: NORTRIPTYLINE HCL 25 MG CAP PO SCH (21:26)
[2017-08-22] MEDS: CARVEDILOL 3.125 MG TAB PO SCH (21:26)
[2017-08-23] VITALS (9 sets, daily range): BP systolic 92–132; BP diastolic 54–76; PULSE 48–99; TEMP 36.8–37.5; O2SAT 91–95
[2017-08-23] MEDS: LEVOTHYROXINE 125 MCG TAB PO SCH (06:00)
[2017-08-23] MEDS: ACETAMINOPHEN 325 MG TAB PO PRN ×2 (06:00→19:28)
[2017-08-23] MEDS: ENOXAPARIN 40 MG/0.4 ML SYR SC SCH (06:00)
[2017-08-23] MEDS: INSULIN ASPART 100 UNITS/ML 3 ML PEN SC SCH ×4 (07:00→21:00)
[2017-08-23] MEDS: LOSARTAN POTASSIUM 25 MG TAB PO SCH (07:36)
[2017-08-23] MEDS: LORATADINE 10 MG TAB PO PRN (07:36)
[2017-08-23] MEDS: ISOSORBIDE MONONITRATE 30 MG TABCR PO SCH (07:37)
[2017-08-23] MEDS: SERTRALINE HCL 100 MG TAB PO SCH (07:37)
[2017-08-23] MEDS: CLOPIDOGREL BISULFATE 75 MG TAB PO SCH (07:37)
[2017-08-23] MEDS: CARVEDILOL 3.125 MG TAB PO SCH ×2 (07:38→19:28)
[2017-08-23] MEDS: NICOTINE 21 MG/24 HR TDSY TD SCH (07:39)
[2017-08-23] MEDS: LIDODERM (LIDOCAINE) PATCH 5% TD SCH (07:39)
[2017-08-23 08:54] LABS: ALBUMIN 2.6 gm/dl (3.4-5.0); TOTAL PROTEIN 6.1 gm/dl (6.4-8.2)
[2017-08-23] MEDS: TRAMADOL HCL 50 MG TAB PO PRN (10:37)
[2017-08-23] MEDS: SODIUM CHLORIDE 0.9% 1000ML 1,000 ML IV SCH (12:24)
--- NOTE | 2017-08-23 14:11 | Neurology Consultation ---
Neurology Consultation Date of Consultation: Aug 23, 2017. Attending Physician: Gopal Guthrie M.D. Primary Care Physician: Richie Fallon MD Reason for Consultation: frequent falls, confusion from medications History of Present Illness Source: patient Emy has a PMH of CAD, status post stenting, PVD, gastric bypass, HTN, DM2 on oral meds, ongoing tobacco abuse, chronic back pain sp surgery , myofascial pain syndrome, LAMBERT on CPAP, primary hyperparathyroidism status post surgery. she had her back surgery in 2012 which she states did not relieve her pain. She has been off vicodin for more that a year and states she has not had relief from the pain since then. she has seen [facility] who prescribed nortriptyline, muscle relaxants. She state she has been taking Benadryl for hives she thinks 5-6 tablets per day. she state she does not get dizzy, sweating or light headed, vertigo when she falls but does not remember much about falling. She states it usually happens when she goes from sitting to standing. She thinks she just moves to fast. Prior to this admission she had a fall and she hit her head. She states she has been all over and does not want to let OT get her to bedside. denies CP, SOB, abdominal pain, N, V, bowel or bladder issues. Past Medical/Surgical History Medical Problems: (1) Acute head injury Status: Acute (2) Frequent falls Status: Acute (3) Generalized pain Status: Acute (4) Generalized weakness Status: Acute (5) Left rib fracture Status: Acute Social History Smoking Status: Current some day smoker Smokeless Tobacco Use: Unknown Marital Status: Housing Status: lives alone Occupation Status: retired, disabled Allergies Coded Allergies: Adhesives (Verified Allergy, Severe, HIVES, 11/20/13) Aspirin (Verified Allergy, Intermediate, HIVES, 11/20/13) NSAIDs (Verified Allergy, Intermediate, HIVES, 11/20/13) Current Inpatient Medications Current Inpatient Medications Medications (Trade) Dose Ordered Sig/Tyron Route Start Time Stop Time Status Last Admin Dose Admin Enoxaparin Sodium (Lovenox Inj) 40 mg Q24H SC 08/22/17 06:00 09/21/17 05:59 08/23/17 06:00 40 MG Acetaminophen (Tylenol Tab) 650 mg Q4H PRN PO 08/22/17 00:45 09/21/17 00:44 08/23/17 06:00 650 MG Nitroglycerin (Nitrostat Tab) 0.4 mg UD PRN SL 08/22/17 00:45 09/21/17 00:44 Insulin Aspart (novoLOG ASPART) SLIDING SCALE If C... ACHS SC 08/22/17 07:00 09/21/17 06:59 08/22/17 08:51 1 UNITS Glucose (Glucose 40% Gel) 15-30 GRAMS 15 GRAMS... UD PRN PO 08/22/17 00:45 09/21/17 00:44 Glucose (Glucose Chew Tab) 4-8 Tablets 4 Tabl... UD PRN PO 08/22/17 00:45 09/21/17 00:44 Dextrose (Dextrose 50% 50ML Syringe) 25-50ML OF 50% DW IV FOR... UD PRN IV 08/22/17 00:45 09/21/17 00:44 Glucagon (Glucagon Inj) 1 mg UD PRN SQ 08/22/17 00:45 09/21/17 00:44 Clopidogrel Bisulfate (plAVix TAB) 75 mg DAILY PO 08/22/17 09:00 09/21/17 08:59 08/23/17 07:37 75 MG Isosorbide Mononitrate (Imdur Ext Rel Tab) 30 mg QAM PO 08/22/17 09:00 09/21/17 08:59 08/23/17 07:37 30 MG Levothyroxine Sodium (Synthroid Tab) 125 mcg DAILYBB PO 08/22/17 06:00 09/21/17 05:59 08/23/17 06:00 125 MCG Losartan Potassium (coZAAR TAB) 25 mg DAILY PO 08/22/17 09:00 09/21/17 08:59 08/23/17 07:36 25 MG Prochlorperazine Edisylate 5 mg/ Syringe 5 ml @ 5 mls/min Q6H PRN IV 08/22/17 00:45 09/21/17 00:44 Loratadine (Claritin Tab) 10 mg DAILY PRN PO 08/22/17 00:45 09/21/17 00:44 08/23/17 07:36 10 MG Sertraline HCl (Zoloft Tab) 200 mg DAILY PO 08/22/17 09:00 09/21/17 08:59 08/23/17 07:37 200 MG Nortriptyline HCl (Pamelor Cap) 75 mg HS PO 08/22/17 21:00 09/21/17 20:59 08/22/17 21:26 75 MG Nicotine (Nicoderm Cq 21MG Patch) 1 patch QAM TD 08/22/17 09:00 09/21/17 08:59 08/22/17 02:09 1 PATCH Miscellaneous (Remove Nicoderm Patch) 1 ea HS N/A 08/22/17 21:00 09/21/17 20:59 Tramadol HCl (Ultram Tab) 25 mg Q8H PRN PO 08/22/17 02:00 09/21/17 00:44 08/23/17 10:37 25 MG Carvedilol (Coreg Tab) 3.125 mg BID PO 08/22/17 21:00 09/21/17 08:59 08/23/17 07:38 3.125 MG Miscellaneous (Iv Fluids Completed) 1 ea PRN PRN N/A 08/22/17 04:00 08/22/18 03:59 Lidocaine (Lidoderm Patch 5%) 1 patch QAM TD 08/23/17 09:00 09/22/17 08:59 08/23/17 07:39 1 PATCH Miscellaneous (Remove Lidoderm Patch) 1 ea DAILY@21 N/A 08/22/17 21:00 09/21/17 20:59 Sodium Chloride 1,000 ml @ 80 mls/hr [id number] IV 08/22/17 10:15 09/21/17 10:14 08/23/17 12:24 80 MLS/HR Gadobutrol (Gadavist) 9 mmol UD PRN IV 08/22/17 10:30 08/26/17 10:29 Physical Exam Vital Signs (Past 24 Hrs): Date Time Temp Pulse Resp B/P (MAP) Pulse Ox O2 Delivery O2 Flow Rate FiO2 08/23/17 12:00 94 Room Air 08/23/17 11:22 36.8 54 18 92/55 (67) 94 Room Air 08/23/17 08:17 93 Room Air 08/23/17 07:25 36.9 92 18 114/73 (87) 93 Room Air 08/23/17 05:14 36.8 08/23/17 04:00 Room Air 08/23/17 03:40 37.5 95 22 132/76 (94) 91 Room Air 08/23/17 00:00 Room Air 08/22/17 23:40 37.4 69 20 118/67 (84) 96 Nasal Cannula 08/22/17 20:00 Room Air 08/22/17 19:20 37.8 50 18 117/73 (88) 94 Room Air 08/22/17 16:00 95 Room Air 08/22/17 15:15 37.2 90 20 126/60 (82) 94 Physical Exam: Constitutional: appearance nourished, healthy, obese Ears, Nose, Mouth and Throat: mucous membranes moist, no injection and skin normal, eyes normal Cardiovascular: normal S-1 and S-2 and regular rate and rhythm Respiratory: clear to auscultation (CTA) and no rales, rhonchi or wheeze Musculoskeletal: non pitting peripheral edema Skin: no stigmata of neurocutaneous disease noted and normal and intact, healing abrasion of right side of forehead Eyes: extraocular muscles intact (EOMI) and pupils equal, round and reactive to light (PERRL) NEUROLOGIC EXAMINATION: Mental status: Alert and interactive Oriented [facility], 2017, August 23, 2017 Oriented to person Speech fluent with no evidence of aphasia Cranial Nerves smile eye brow raise symmetric, tongue midline Reflexes: refuses exam Sensory: light touch provokes tenderness in arm and legs, decreased sensation to cool touch and vibration to knees Coordination: finger to nose on right without bipass, left unable to lift arm due to mechanical shoulder Gait/Stance: Posture sitting up in bed Motor: unable to lift both arms Strength: unable to assess due to patient cooperation- states she is in too much pain Laboratory Results Past 24 Hours: Test 08/22/17 13:51 08/22/17 13:57 08/23/17 08:09 08/23/17 11:10 Salicylates Level < 1.7 mg/dl (2.8-20) Acetaminophen Level < 2 ug/ml (10-30) Arterial Blood pH 7.46 (7.35-7.45) Arterial Blood Partial Pressure CO2 31 mmHg (35-46) Arterial Blood Partial Pressure O2 67 mm/Hg (80-95) Arterial Blood HCO3 22 mmol/L (19-24) Arterial Blood Oxygen Saturation 92.5 % (90-95) Arterial Blood Base Excess -1.4 mEq/L (-9-1.8) Arterial Blood Gas Delivery RA Laron Test POS (POS) Total Bilirubin 1.4 mg/dl (0.2-1) Direct Bilirubin 0.8 mg/dl (0-0.2) Aspartate Amino Transf (AST/SGOT) 17 U/L (15-37) Alanine Aminotransferase (ALT/SGPT) 21 U/L (12-78) Alkaline Phosphatase 84 U/L (45-117) Total Protein 6.1 gm/dl (6.4-8.2) Albumin 2.6 gm/dl (3.4-5.0) Bedside Glucose 154 mg/dl (70-90) Imaging MRI brain combo- Allowing for motion artifact, no acute intracranial pathology. No abnormal enhancement. Chronic small vessel ischemic change. rib xray- : Possible acute nondisplaced fracture of the anterior left sixth rib. CT c spine- No acute cervical spine fracture or subluxation. Mild age indeterminate compression fracture of the inferior endplate of T2. left humerus-No acute fracture of the left humerus. Several possible acute nondisplaced left lateral rib fractures. left shoulder xray- : No acute fracture or dislocation of the left shoulder. Impression 72 year old female s/p multiple falls Plan 1. orthostatic blood pressures. 2. diabetic polyneuropathy bi/lateral LE 3. Stop Ultram can cause additional confusion 4. PT/OT for discharge needs 5. Benadryl has been stopped -would not use narcotics for pain control 6. PT/OT for discharge needs- may need higher level of can considering the number of falls 7. MRI no acute findings 8. complains of diffuse pain- maybe underlying cause. 9. nortriptyline should be tapered off can cause alot of side effects in patient of this age, dry, mouth confusion, balance issue 10. thiamine, copper, vit E b12, folate 11. EEG would be helpful after the pain is controlled as out patient I have seen and discussed above patient with Dr Barbie Quiñones, neurology. Pt seen and examined, discussed hx of pt (limited) and son. Pt has been confused and falling for about 1 month, the approximate duration of her use of nortriptyline, muscle relaxers and tramadol with reported self dosing benadry. Pt indicates recent wt loss after stable weight for years after gastric bypass. Denies and sensory sx or incontinence. MRI, labs revlewed.Pt is alert and oriented, no aphasia. Pt allows only limited exam because of pain. UE are greater than antigravity, limited at left shoulder possible due to shoulder pathology. There is no asymmetric drift. Nml bulk. Pt allows limited exam of the LE. Tone grossly nml, perhaps minimal atrophy of the TAs. No pathologic refelxes in the LE, decreased ankle jerks. Sensory, see KKennedy, certainly no sidde-to side sensory loss or trunk level. FNF is mildly tremulous, toe tapping is nondystaxic. Imp. I suspect the encephalopathy and falls are related to polypharmacy, high doses of nortriptyline considering concurrent use of Zoloft. Possibly duplicative MOA depending on muscle relaxers,benadryl. I would taper and dc nortriptyline. Avoid traditional muscle relaxers, and tramadol.Will follow with you and monitor for improved LE function, or at least exam. Pt will need rehab. If her LE strength is not improving consider henson-spine MRI. Pt also likely has neuropathy, likely diabetic, cant exclude nutritional given gastric bypass. May also be reasonable to do a NCV-EMG as outpt. CAYETANO Quiñones MD
[2017-08-23] MEDS ORDERED: DOCUSATE SODIUM/SENNA 50/8.6MG TAB PO ONE (16:30)
[2017-08-23] MEDS: NORTRIPTYLINE HCL 25 MG CAP PO SCH (19:28)
[2017-08-23] MEDS: DOCUSATE SODIUM/SENNA 50/8.6MG TAB PO SCH (19:28)
--- NOTE | 2017-08-23 20:30 | Progress Note ---
Internal Med Progress Note Date of Service: Aug 23, 2017. Provider Documentation: SUBJECTIVE: Alert and awake and oriented X 3 TODAY speech clear has chronic pain also pain from fall no sob or cough afebrile daughter requests placement OBJECTIVE: Vital Signs-as noted below Exam: General-alert and oriented x 3. not in distress ENT-Normal hearing Neck-no neck masses Lungs-cta b/l no wheezing or crackles Heart-S1 and S2 heard regular rate and rhythm, no murmurs Abdomen-soft bowel sounds present no tenderness no distension Extremities no edema present no erythema Neuro-alert and awake and oriented x 3 moves extremities Lab data as noted below. ASSESSMENT & PLAN: 1. Episodic encephalopathy, forgetfulness, hallucinations, recurrent falls( as per daughter) Most likely secondary to polypharmacy (muscle relaxants, excessive OTC Benadryl intake as per family in particular) chronic back pain status post surgery/hx myofascial pain syndrome as per records history of terminated narcotic agreement as per outpatient records as per admission MRI brain unremarkable except for microvascular disease family is concerned about Alzheimer disease because of family history will monitor in tele iv fluids consulted nephrology for further recommendations-appreciate inputs pt/ot for frequent falls and may need placement 2. CAD sp stenting/hx PVD. on coreg, Imdur, losartan and plavix. 3. Traumatic LUE pain (no fractures on plain imaging) 4. L rib fracture secondary to mechanical fall pain control. 5. hypertension, stable on coreg, imdur and losartan. will monitor. 6. history of gastric bypass 7. DM2 on oral meds, well controlled as of recent outpatient HgA1c of 5.9 in May 2017. ISS in hospital. 8. hx primary hyperparathyroidism status post surgery 9. ongoing tobacco abuse 10. Asymptomatic pyuria, no sepsis DVT PROPHYLAXIS scds DISPOSITION if stable will transfer to floor in am pt/ot social service for d/c planning Vital Signs: Date Time Temp Pulse Resp B/P (MAP) Pulse Ox O2 Delivery O2 Flow Rate FiO2 08/23/17 20:00 Room Air 08/23/17 19:25 37.1 62 12 112/54 (73) 95 Room Air 08/23/17 16:00 Room Air 08/23/17 15:43 37.2 50 20 105/66 (79) 95 Room Air 08/23/17 12:00 94 Room Air 2/5/18 11:22 36.8 54 18 92/55 (67) 94 Room Air 08/23/17 08:17 93 Room Air 08/23/17 07:25 36.9 92 18 114/73 (87) 93 Room Air 08/23/17 05:14 36.8 08/23/17 04:00 Room Air 08/23/17 03:40 37.5 95 22 132/76 (94) 91 Room Air 08/23/17 00:00 Room Air 08/22/17 23:40 37.4 69 20 118/67 (84) 96 Nasal Cannula Lab Results: Results Past 24 Hours Test 08/22/17 20:33 08/23/17 06:23 08/23/17 08:09 08/23/17 11:10 Range/Units Bedside Glucose 156 136 154 70-90 mg/dl Total Bilirubin 1.4 0.2-1 mg/dl Direct Bilirubin 0.8 0-0.2 mg/dl Aspartate Amino Transf (AST/SGOT) 17 15-37 U/L Alanine Aminotransferase (ALT/SGPT) 21 12-78 U/L Alkaline Phosphatase 84 45-117 U/L Total Protein 6.1 6.4-8.2 gm/dl Albumin 2.6 3.4-5.0 gm/dl Test 08/23/17 16:29 08/23/17 17:15 Range/Units Bedside Glucose 125 70-90 mg/dl Vitamin B12 Level 1600 211-911 pg/mL Folate 7.57 >5.38 ng/mL
[2017-08-24] VITALS (10 sets, daily range): BP systolic 96–116; BP diastolic 55–70; PULSE 48–87; TEMP 36.6–37.4; O2SAT 91–95
[2017-08-24] MEDS: SODIUM CHLORIDE 0.9% 1000ML 1,000 ML IV SCH ×2 (00:17→12:43)
[2017-08-24] MEDS: ACETAMINOPHEN 325 MG TAB PO PRN ×3 (00:26→17:57)
[2017-08-24] MEDS: ENOXAPARIN 40 MG/0.4 ML SYR SC SCH (05:55)
[2017-08-24] MEDS: LEVOTHYROXINE 125 MCG TAB PO SCH (05:57)
--- NOTE | 2017-08-24 06:22 | Progress Note ---
Internal Med Progress Note Date of Service: Aug 24, 2017. Provider Documentation: Made aware by RN of px having episodic hallucinations in a.m. (Roommate smoking, bedbugs, etc.) AP Episodic hallucinations (Also happening at home as per family account.) ? Psychosis Psych eval Will relay to AM provider. Vital Signs: Date Time Temp Pulse Resp B/P (MAP) Pulse Ox O2 Delivery O2 Flow Rate FiO2 08/24/17 04:45 92 Room Air 08/24/17 03:40 37.4 62 20 99/56 (70) 92 Room Air 08/24/17 00:01 92 Room Air 08/23/17 23:35 37.3 99 22 112/65 (81) 92 Room Air 08/23/17 20:00 Room Air 08/23/17 19:25 37.1 62 12 112/54 (73) 95 Room Air 08/23/17 16:00 Room Air 08/23/17 15:43 37.2 50 20 105/66 (79) 95 Room Air 08/23/17 12:00 94 Room Air 08/23/17 11:22 36.8 54 18 92/55 (67) 94 Room Air 08/23/17 08:17 93 Room Air 08/23/17 07:25 36.9 92 18 114/73 (87) 93 Room Air Lab Results: Results Past 24 Hours Test 08/23/17 08:09 08/23/17 11:10 08/23/17 16:29 08/23/17 17:15 Range/Units Total Bilirubin 1.4 0.2-1 mg/dl Direct Bilirubin 0.8 0-0.2 mg/dl Aspartate Amino Transf (AST/SGOT) 17 15-37 U/L Alanine Aminotransferase (ALT/SGPT) 21 12-78 U/L Alkaline Phosphatase 84 45-117 U/L Total Protein 6.1 6.4-8.2 gm/dl Albumin 2.6 3.4-5.0 gm/dl Bedside Glucose 154 125 70-90 mg/dl Vitamin B12 Level 1600 211-911 pg/mL Folate 7.57 >5.38 ng/mL Rapid Plasma Reagin NONREACTIVE NONREACT Test 08/23/17 20:50 08/24/17 04:44 Range/Units Bedside Glucose 122 70-90 mg/dl
[2017-08-24] MEDS: INSULIN ASPART 100 UNITS/ML 3 ML PEN SC SCH ×4 (07:00→20:48)
[2017-08-24 07:50] LABS: CREATININE 0.76 mg/dl (0.60-1.20); POTASSIUM 3.9 mmol/L (3.5-5.1)
[2017-08-24] MEDS: LOSARTAN POTASSIUM 25 MG TAB PO SCH (07:50)
[2017-08-24] MEDS: CLOPIDOGREL BISULFATE 75 MG TAB PO SCH (07:50)
[2017-08-24] MEDS: ISOSORBIDE MONONITRATE 30 MG TABCR PO SCH (07:50)
[2017-08-24] MEDS: CARVEDILOL 3.125 MG TAB PO SCH ×2 (07:51→20:49)
[2017-08-24] MEDS: LIDODERM (LIDOCAINE) PATCH 5% TD SCH (07:51)
[2017-08-24] MEDS: DOCUSATE SODIUM/SENNA 50/8.6MG TAB PO SCH ×2 (07:51→20:51)
[2017-08-24] MEDS: SERTRALINE HCL 100 MG TAB PO SCH (07:51)
[2017-08-24] MEDS: NICOTINE 21 MG/24 HR TDSY TD SCH (07:52)
--- NOTE | 2017-08-24 10:53 | Progress Note ---
Medicine Progress Note Date & Time of Visit: Aug 24, 2017 at 10:44. Subjective patient reported to have hallucinations this morning on exam, alert, oriented x 3, denies new hallucinations since waking up, does not remember having any overnight reports having "pain all over" also has right elbow pain denies headache, chest pain, dyspnea, palpitations, dizziness, nausea still weak per OT who just did bedside eval Objective Last 8 Hrs Date Time Temp Pulse Resp B/P (MAP) Pulse Ox O2 Delivery O2 Flow Rate FiO2 08/24/17 08:00 94 Room Air 08/24/17 07:29 37.0 87 18 116/70 (85) 91 Room Air 08/24/17 04:45 92 Room Air 08/24/17 03:40 37.4 62 20 99/56 (70) 92 Room Air Physical Exam: General- oriented x 3, not in distress, speaks in sentences with no effort Head- atraumatic Eyes- PERRL, EOMI, anicteric ENT- oropharynx clear Neck- supple, no JVD, no adenopathy, no thyromegaly; carotids +2/2 Lungs- clear breath sounds bilaterally, no rales/wheezes Heart- regular rhythm; no murmur, normal rate Abdomen- normal bowel sounds, soft, nontender, no masses Extremities- right elbow with mild tenderness, and mild warmth, full ROM, no edema trace pretibial edema, no calf tenderness; peripheral pulses intact Neuro- alert, oriented x 3; PERRL, EOMI; no facial palsy; no dysarthria; motor 5 /5 bilaterally; sensation 100% no other gross focal neuro deficits Skin- warm & dry Laboratory Results: Last 24 Hours Test 08/23/17 11:10 08/23/17 16:29 08/23/17 17:15 08/23/17 20:50 Bedside Glucose 154 mg/dl 125 mg/dl 122 mg/dl Vitamin B12 Level 1600 pg/mL Folate 7.57 ng/mL Rapid Plasma Reagin NONREACTIVE Test 08/24/17 06:54 Sodium Level 134 mmol/L Potassium Level 3.9 mmol/L Chloride Level 108 mmol/L Carbon Dioxide Level 19 mmol/L Anion Gap 7.0 mmol/L Blood Urea Nitrogen 22 mg/dl Creatinine 0.76 mg/dl Est Creatinine Clear Calc Drug Dose 77.2 ml/min Estimated GFR () 91.5 Estimated GFR (Non- 78.9 BUN/Creatinine Ratio 28.7 Random Glucose 100 mg/dl Calcium Level 9.0 mg/dl Magnesium Level 1.8 mg/dl Assessment & Plan 72 year old female with history of CAD, DM, HTN, Gastric Bypass presenting with falls. ALTERED MENTAL STATUS, LIKELY DELIRIUM - likely secondary to polypharmacy (muscle relaxants, excessive OTC Benadryl intake as per family in particular) - CT head: no acute findings MRI Brain: Chronic Small Vessel changes - Neuro consulted - now only on Nortriptyline- being tapered off, Sertraline CHRONIC PAIN SYNDROME chronic back pain status post surgery/hx myofascial pain syndrome as per records - will consult Pain Management S/P FALLS - likely secondary to polypharmacy, deconditioning - PT/OT in progress - Left Rib anterior 6th Fracture: Incentive Taz - Check R elbow xray to r/o Fracture CAD S/P STENT - continue on coreg, Imdur, losartan and plavix. HYPERTENSION - stable DM2 - on oral meds, well controlled as of recent outpatient HgA1c of 5.9 in May 2017. ISS in hospital. Ongoing tobacco abuse - counselling DVT PROPHYLAXIS Lovenox DISPOSITION lives alone at home PT/OT in progress patient declines rehab at this time, will monitor Current Inpatient Medications: Current Inpatient Medications Medications (Trade) Dose Ordered Sig/Tyron Route Start Time Stop Time Status Last Admin Dose Admin Enoxaparin Sodium (Lovenox Inj) 40 mg Q24H SC 08/22/17 06:00 09/21/17 05:59 08/24/17 05:55 40 MG Acetaminophen (Tylenol Tab) 650 mg Q4H PRN PO 08/22/17 00:45 09/21/17 00:44 08/24/17 05:58 650 MG Nitroglycerin (Nitrostat Tab) 0.4 mg UD PRN SL 08/22/17 00:45 09/21/17 00:44 Insulin Aspart (novoLOG ASPART) SLIDING SCALE If C... ACHS SC 08/22/17 07:00 09/21/17 06:59 08/22/17 08:51 1 UNITS Glucose (Glucose 40% Gel) 15-30 GRAMS 15 GRAMS... UD PRN PO 08/22/17 00:45 09/21/17 00:44 Glucose (Glucose Chew Tab) 4-8 Tablets 4 Tabl... UD PRN PO 08/22/17 00:45 09/21/17 00:44 Dextrose (Dextrose 50% 50ML Syringe) 25-50ML OF 50% DW IV FOR... UD PRN IV 08/22/17 00:45 09/21/17 00:44 Glucagon (Glucagon Inj) 1 mg UD PRN SQ 08/22/17 00:45 09/21/17 00:44 Clopidogrel Bisulfate (plAVix TAB) 75 mg DAILY PO 08/22/17 09:00 09/21/17 08:59 08/24/17 07:50 75 MG Isosorbide Mononitrate (Imdur Ext Rel Tab) 30 mg QAM PO 08/22/17 09:00 09/21/17 08:59 08/24/17 07:50 30 MG Levothyroxine Sodium (Synthroid Tab) 125 mcg DAILYBB PO 08/22/17 06:00 09/21/17 05:59 08/24/17 05:57 125 MCG Losartan Potassium (coZAAR TAB) 25 mg DAILY PO 08/22/17 09:00 09/21/17 08:59 08/24/17 07:50 25 MG Prochlorperazine Edisylate 5 mg/ Syringe 5 ml @ 5 mls/min Q6H PRN IV 08/22/17 00:45 09/21/17 00:44 Loratadine (Claritin Tab) 10 mg DAILY PRN PO 08/22/17 00:45 09/21/17 00:44 08/23/17 07:36 10 MG Sertraline HCl (Zoloft Tab) 200 mg DAILY PO 08/22/17 09:00 09/21/17 08:59 08/24/17 07:51 200 MG Nicotine (Nicoderm Cq 21MG Patch) 1 patch QAM TD 08/22/17 09:00 09/21/17 08:59 08/22/17 02:09 1 PATCH Miscellaneous (Remove Nicoderm Patch) 1 ea HS N/A 08/22/17 21:00 09/21/17 20:59 Carvedilol (Coreg Tab) 3.125 mg BID PO 08/22/17 21:00 3/6/18 08:59 08/24/17 07:51 3.125 MG Miscellaneous (Iv Fluids Completed) 1 ea PRN PRN N/A 08/22/17 04:00 08/22/18 03:59 Lidocaine (Lidoderm Patch 5%) 1 patch QAM TD 08/23/17 09:00 09/22/17 08:59 08/24/17 07:51 1 PATCH Miscellaneous (Remove Lidoderm Patch) 1 ea DAILY@21 N/A 08/22/17 21:00 09/21/17 20:59 Sodium Chloride 1,000 ml @ 80 mls/hr [id number] IV 08/22/17 10:15 09/21/17 10:14 08/24/17 00:17 80 MLS/HR Gadobutrol (Gadavist) 9 mmol UD PRN IV 08/22/17 10:30 08/26/17 10:29 Senna/Docusate Sodium (Senokot S Tab) 1 tab BID PO 08/23/17 21:00 09/22/17 20:59 08/24/17 07:51 1 TAB Nortriptyline HCl (Pamelor Cap) 50 mg HS PO 08/24/17 21:00 09/21/17 20:59 UNV
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
--- NOTE | 2017-08-24 15:35 | Neurology Progress Notes ---
Neurology Progress Note Date of Service Aug 24, 2017. Franklin Quevedo has a PMH of CAD, status post stenting, PVD, gastric bypass, HTN, DM2 on oral meds, ongoing tobacco abuse, chronic back pain sp surgery , myofascial pain syndrome, LAMBERT on CPAP, primary hyperparathyroidism status post surgery. she had her back surgery in 2012 which she states did not relieve her pain. She has been off vicodin for more that a year and states she has not had relief from the pain since then. she has seen [facility] Management who prescribed nortriptyline, muscle relaxants. She state she has been taking Benadryl for hives she thinks 5-6 tablets per day. she state she does not get dizzy, sweating or light headed, vertigo when she falls but does not remember much about falling. She states it usually happens when she goes from sitting to standing. She thinks she just moves to fast. Prior to this admission she had a fall and she hit her head. She states she has been OOB today and did well. She states the pain is the same but she thinks she is moving better. denies CP, SOB , abdominal pain, N, V, bowel or bladder issues. Objective Date Time Temp Pulse Resp B/P (MAP) Pulse Ox O2 Delivery O2 Flow Rate FiO2 08/24/17 14:46 37.0 48 18 96/55 (69) 91 Room Air 08/24/17 12:26 36.8 61 18 100/61 (74) 95 Room Air 08/24/17 12:00 94 Room Air 08/24/17 11:53 36.6 62 18 92 08/24/17 11:49 36.6 62 18 102/65 (77) 92 Room Air 08/24/17 08:00 94 Room Air 08/24/17 07:29 37.0 87 18 116/70 (85) 91 Room Air 08/24/17 04:45 92 Room Air 08/24/17 03:40 37.4 62 20 99/56 (70) 92 Room Air 08/24/17 00:01 92 Room Air 08/23/17 23:35 37.3 99 22 112/65 (81) 92 Room Air 08/23/17 20:00 Room Air 08/23/17 19:25 37.1 62 12 112/54 (73) 95 Room Air 08/23/17 16:00 Room Air 08/23/17 15:43 37.2 50 20 105/66 (79) 95 Room Air Last 24 Hours Test 08/23/17 16:29 08/23/17 17:15 08/23/17 20:50 08/24/17 06:54 Bedside Glucose 125 mg/dl 122 mg/dl Vitamin B12 Level 1600 pg/mL Folate 7.57 ng/mL Rapid Plasma Reagin NONREACTIVE Sodium Level 134 mmol/L Potassium Level 3.9 mmol/L Chloride Level 108 mmol/L Carbon Dioxide Level 19 mmol/L Anion Gap 7.0 mmol/L Blood Urea Nitrogen 22 mg/dl Creatinine 0.76 mg/dl Est Creatinine Clear Calc Drug Dose 77.2 ml/min Estimated GFR () 91.5 Estimated GFR (Non- 78.9 BUN/Creatinine Ratio 28.7 Random Glucose 100 mg/dl Calcium Level 9.0 mg/dl Magnesium Level 1.8 mg/dl Test 08/24/17 11:03 Bedside Glucose 128 mg/dl Imaging: no new imaging Exam: Physical Exam: Constitutional: appearance nourished, obese Ears, Nose, Mouth and Throat: mucous membranes moist, no injection and skin normal, eyes normal Cardiovascular: normal S-1 and S-2 and regular rate and rhythm Respiratory: clear to auscultation (CTA) and no rales, rhonchi or wheeze Musculoskeletal: none pitting peripheral edema Skin: no stigmata of neurocutaneous disease noted and normal and intact Eyes: extraocular muscles intact (EOMI) and pupils equal, round and reactive to light (PERRL) NEUROLOGIC EXAMINATION: Mental status: Alert and interactive Oriented to full date and location, know July, [facility], president Oriented to person Speech fluent with no evidence of aphasia Cranial Nerves smile eye brow raise symmetric, tongue midline Coordination: finger to nose with no bi pass minimal tremor Gait/Stance: Posture lying in bed Motor: Negative for pronator drift of out stretched arms with eyes closed. 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 right not as restricted Current Inpatient Medications Medications (Trade) Dose Ordered Sig/Tyron Route Start Time Stop Time Status Last Admin Dose Admin Enoxaparin Sodium (Lovenox Inj) 40 mg Q24H SC 08/22/17 06:00 09/21/17 05:59 08/24/17 05:55 40 MG Acetaminophen (Tylenol Tab) 650 mg Q4H PRN PO 08/22/17 00:45 09/21/17 00:44 08/24/17 05:58 650 MG Nitroglycerin (Nitrostat Tab) 0.4 mg UD PRN SL 08/22/17 00:45 09/21/17 00:44 Insulin Aspart (novoLOG ASPART) SLIDING SCALE If C... ACHS SC 08/22/17 07:00 09/21/17 06:59 08/22/17 08:51 1 UNITS Glucose (Glucose 40% Gel) 15-30 GRAMS 15 GRAMS... UD PRN PO 08/22/17 00:45 09/21/17 00:44 Glucose (Glucose Chew Tab) 4-8 Tablets 4 Tabl... UD PRN PO 08/22/17 00:45 09/21/17 00:44 Dextrose (Dextrose 50% 50ML Syringe) 25-50ML OF 50% DW IV FOR... UD PRN IV 08/22/17 00:45 09/21/17 00:44 Glucagon (Glucagon Inj) 1 mg UD PRN SQ 08/22/17 00:45 09/21/17 00:44 Clopidogrel Bisulfate (plAVix TAB) 75 mg DAILY PO 08/22/17 09:00 09/21/17 08:59 08/24/17 07:50 75 MG Isosorbide Mononitrate (Imdur Ext Rel Tab) 30 mg QAM PO 08/22/17 09:00 09/21/17 08:59 08/24/17 07:50 30 MG Levothyroxine Sodium (Synthroid Tab) 125 mcg DAILYBB PO 08/22/17 06:00 09/21/17 05:59 08/24/17 05:57 125 MCG Losartan Potassium (coZAAR TAB) 25 mg DAILY PO 08/22/17 09:00 09/21/17 08:59 08/24/17 07:50 25 MG Prochlorperazine Edisylate 5 mg/ Syringe 5 ml @ 5 mls/min Q6H PRN IV 08/22/17 00:45 09/21/17 00:44 Loratadine (Claritin Tab) 10 mg DAILY PRN PO 08/22/17 00:45 3/6/18 00:44 08/23/17 07:36 10 MG Sertraline HCl (Zoloft Tab) 200 mg DAILY PO 08/22/17 09:00 09/21/17 08:59 08/24/17 07:51 200 MG Nicotine (Nicoderm Cq 21MG Patch) 1 patch QAM TD 08/22/17 09:00 09/21/17 08:59 08/22/17 02:09 1 PATCH Miscellaneous (Remove Nicoderm Patch) 1 ea HS N/A 08/22/17 21:00 09/21/17 20:59 Carvedilol (Coreg Tab) 3.125 mg BID PO 08/22/17 21:00 09/21/17 08:59 08/24/17 07:51 3.125 MG Miscellaneous (Iv Fluids Completed) 1 ea PRN PRN N/A 08/22/17 04:00 08/22/18 03:59 Lidocaine (Lidoderm Patch 5%) 1 patch QAM TD 08/23/17 09:00 09/22/17 08:59 08/24/17 07:51 1 PATCH Miscellaneous (Remove Lidoderm Patch) 1 ea DAILY@21 N/A 08/22/17 21:00 09/21/17 20:59 Sodium Chloride 1,000 ml @ 80 mls/hr [id number] IV 08/22/17 10:15 09/21/17 10:14 08/24/17 12:43 80 MLS/HR Gadobutrol (Gadavist) 9 mmol UD PRN IV 08/22/17 10:30 08/26/17 10:29 Senna/Docusate Sodium (Senokot S Tab) 1 tab BID PO 08/23/17 21:00 09/22/17 20:59 08/24/17 07:51 1 TAB Nortriptyline HCl (Pamelor Cap) 50 mg HS PO 08/24/17 21:00 09/21/17 20:59 Impression 72 year old female s/p multiple falls Plan 1. orthostatic blood pressures pending 2. diabetic polyneuropathy bi/lateral LE 3. Stop Ultram can cause additional confusion 4. PT/OT for discharge needs 5. Benadryl has been stopped -would not use narcotics for pain control 6. may need higher level of can considering the number of falls 7. MRI no acute findings 8. complains of diffuse pain- maybe underlying cause. 9. nortriptyline should be tapered off can cause alot of side effects in patient of this age, dry, mouth confusion, balance issue 10. thiamine, copper, vit E b12, folate pending results 11. EMG would be helpful after the pain is controlled as out patient schedule with Dr Quiñones as outpatient for EMG 40 minutes bilateral LE next available I have seen and discussed above patient with Dr Barbie Quiñones, neurology Pt seen and examined, in less pain today and more cooperative. LE antigravity. Suspect falls related to polypharmacy and diabetic neuropathy. Pt strength improving. Hopefully tomorrow pt will be up and walking with PT, so we can get a better assessment of strength and determine need for any additional imaging. Pt appears to need inpt rehab. [facility]CV as outpt. CAYETANO Quiñones MD
--- NOTE | 2017-08-24 16:37 | DIAGNOSTIC IMAGING REPORT ---
ELBOW MIN 3 VIEWS ROUTINE CLINICAL HISTORY: Right elbow pain status post trauma COMPARISON: None DISCUSSION: The fat pads are not displaced. No acute fractures are visualized. Lateral epicondylar calcifications are felt to be chronic. Calcifications in the region of the ulnar insertion of the ulnar collateral ligament, are also likely chronic IMPRESSION: No acute fractures or dislocations identified. Electronically signed by: Maxime Ross M.D. 08/24/2017 4:35 PM Dictated Date/Time: 08/24/2017 4:34 PM
[2017-08-24] MEDS: NORTRIPTYLINE HCL 25 MG CAP PO SCH (20:51)
[2017-08-25] VITALS (7 sets, daily range): BP systolic 82–154; BP diastolic 25–97; PULSE 50–110; TEMP 37–37.6; O2SAT 87–94
[2017-08-25] MEDS: SODIUM CHLORIDE 0.9% 1000ML 1,000 ML IV SCH ×2 (02:02→14:27)
[2017-08-25] MEDS ORDERED: MICONAZOLE NITRATE POWDER 43 GM EXT PRN (05:30)
[2017-08-25] MEDS ORDERED: NURSING VERBAL MED ORDER ONE (05:30)
[2017-08-25] MEDS: ENOXAPARIN 40 MG/0.4 ML SYR SC SCH (05:45)
[2017-08-25] MEDS: LEVOTHYROXINE 125 MCG TAB PO SCH (05:46)
[2017-08-25] MEDS: INSULIN ASPART 100 UNITS/ML 3 ML PEN SC SCH ×4 (07:52→20:20)
[2017-08-25] MEDS: DOCUSATE SODIUM/SENNA 50/8.6MG TAB PO SCH ×2 (07:56→22:19)
[2017-08-25] MEDS: LIDODERM (LIDOCAINE) PATCH 5% TD SCH (07:56)
[2017-08-25] MEDS: SERTRALINE HCL 100 MG TAB PO SCH (07:56)
[2017-08-25] MEDS: NICOTINE 21 MG/24 HR TDSY TD SCH (07:56)
[2017-08-25] MEDS: CLOPIDOGREL BISULFATE 75 MG TAB PO SCH (07:57)
[2017-08-25] MEDS: CARVEDILOL 3.125 MG TAB PO SCH ×3 (07:57→22:21)
[2017-08-25] MEDS: ISOSORBIDE MONONITRATE 30 MG TABCR PO SCH (07:57)
[2017-08-25] MEDS: LOSARTAN POTASSIUM 25 MG TAB PO SCH (07:57)
[2017-08-25 08:05] LABS: EOS % 0.8 %; EOS ABS # 0.05 K/uL (0-0.5); HEMATOCRIT 31.4 % (37-47); HEMOGLOBIN 10.3 g/dL (12.0-16.0); IG# 0.02 K/uL (0.00-0.02); LYMPH % 13.6 %; LYMPH ABS # 0.89 K/uL (1.2-3.4); MEAN CELL VOLUME 99.4 fL (80-100); MEAN CORPUSCULAR HEMOGLOBIN 32.6 pg (25-34); MEAN CORPUSCULAR HGB CONC 32.8 g/dl (32-36); MEAN PLATELET VOLUME 11.2 fL (7.4-10.4); MONO % 12.2 %; NEUT % 73.1 %; NEUT ABS # 4.79 K/uL (1.4-6.5); PLATELET COUNT 134 K/uL (130-400); RED CELL DISTRIBUTION WIDTH CV 13.2 % (11.5-14.5); RED CELL DISTRIBUTION WIDTH SD 48.1 fL (36.4-46.3); WHITE BLOOD COUNT 6.55 K/uL (4.8-10.8)
[2017-08-25 08:38] LABS: CALCIUM 9.6 mg/dl (8.5-10.1); CREATININE 0.68 mg/dl (0.60-1.20)
--- NOTE | 2017-08-25 10:08 | Pain Management Consultation ---
Pain Management Consultation Date of Consultation Aug 25, 2017. Reason for Consultation Chronic pain syndrome History Emy Zhou is a 72-year-old female who is admitted to [facility] with complaints of multiple falls, forgetfulness and possibly hallucinations. She has a history of chronic pain attributed to fibromyalgia and lumbar postlaminectomy syndrome. She has been seen at [facility], most recently in June 2017, and has been prescribed nortriptyline gradually escalating dosages. At the time of this interview and examination, patient appeared to be hostile and refused to answer questions pertaining to her symptoms and medication usage. Majority of the history on this patient was obtained from reviewing the entire EMR including outpatient notes. Pain is located "all over "and lumbar spine. Symptoms are characterized as constantly aching sensation with sharp, shooting episodes that occur spontaneously and radiated "all over". Symptoms have been present for a chronic duration but patient is unable to quantify the exact amount of time. Activities that exacerbate patient's symptoms include minimal activities required for living. Functionally, patient reports requiring a wheeled walker to ambulate and perform minimal ADLs. Activities that alleviate patient's symptoms include remaining in the supine, immobile position. Patient is unable to quantify the intensity of her symptoms but states it is "terrible". Current treatments include nortriptyline 50 mg nightly insert Sertraline 200 mg daily. Previous treatments include use of antidepressant medications, hydrocodone, cyclobenzaprine and physical therapy in the remote past with questionable efficacy. Patient reports that hydrocodone was helpful in "dulling " some of the pain, however it was discontinued by her primary care provider as patient was misusing it and taking higher than prescribed dosages. Ultimately, she violated her opiate agreement with the provider and therefore hydrocodone were discontinued. Based on the review of the EMR, and from her office notes from out in the pain management center, it appears the patient has had history of misuse over medications. Imaging and evaluations this admission include brain CT scans of the brain and cervical spine. No previous imaging of the thoracolumbar spine is noted in the EMR. Reports minimal neurological symptoms associated with the symptoms consisting of paresthesia and generalized weakness in lower extremities, perhaps more due to deconditioning rather than true weakness. She denies any bowel bladder incontinence, saddle anesthesia or any new neurological symptoms. Comorbid psychosocial conditions include history of depression, patient living alone in [facility], and previous history of noncompliance with medication usage. Comorbid medical conditions include coronary artery disease with stenting, diabetes mellitus type 2, peripheral vascular disease, status post gastric bypass, hypertension, type 2 diabetes, obstructive sleep apnea requiring CPAP and primary Hyperparathyroidism treated with surgery. Past Medical: Diabetes mellitus type 2 Coronary artery disease Hypertension History of peripheral vascular disease Status post gastric bypass Lumbar postlaminectomy syndrome History of myofascial pain Obstructive sleep apnea requiring CPAP History of hyperparathyroidism status post parathyroidectomy Tobacco abuse Past Surgical: Status post multiple lumbar spine surgeries Status post parathyroidectomy Status post gastric bypass Family History Patient reports no known family medical history. Social / Work History Smoking Status: Current every day smoker Smokeless Tobacco Use: Unknown Alcohol Use: none Drug Use: none Marital Status: Housing Status: lives alone Occupation: retired, disabled Allergies Coded Allergies: Adhesives (Verified Allergy, Severe, HIVES, 11/20/13) Aspirin (Verified Allergy, Intermediate, HIVES, 11/20/13) NSAIDs (Verified Allergy, Intermediate, HIVES, 11/20/13) Medications Current Inpatient Medications Medications (Trade) Dose Ordered Sig/Tyron Route Start Time Stop Time Status Last Admin Dose Admin Enoxaparin Sodium (Lovenox Inj) 40 mg Q24H SC 08/22/17 06:00 09/21/17 05:59 08/25/17 05:45 40 MG Acetaminophen (Tylenol Tab) 650 mg Q4H PRN PO 08/22/17 00:45 09/21/17 00:44 08/24/17 17:57 650 MG Nitroglycerin (Nitrostat Tab) 0.4 mg UD PRN SL 08/22/17 00:45 09/21/17 00:44 Insulin Aspart (novoLOG ASPART) SLIDING SCALE If C... ACHS SC 08/22/17 07:00 09/21/17 06:59 08/22/17 08:51 1 UNITS Glucose (Glucose 40% Gel) 15-30 GRAMS 15 GRAMS... UD PRN PO 08/22/17 00:45 09/21/17 00:44 Glucose (Glucose Chew Tab) 4-8 Tablets 4 Tabl... UD PRN PO 08/22/17 00:45 09/21/17 00:44 Dextrose (Dextrose 50% 50ML Syringe) 25-50ML OF 50% DW IV FOR... UD PRN IV 08/22/17 00:45 09/21/17 00:44 Glucagon (Glucagon Inj) 1 mg UD PRN SQ 08/22/17 00:45 09/21/17 00:44 Clopidogrel Bisulfate (plAVix TAB) 75 mg DAILY PO 08/22/17 09:00 09/21/17 08:59 08/25/17 07:57 75 MG Isosorbide Mononitrate (Imdur Ext Rel Tab) 30 mg QAM PO 08/22/17 09:00 09/21/17 08:59 08/25/17 07:57 30 MG Levothyroxine Sodium (Synthroid Tab) 125 mcg DAILYBB PO 08/22/17 06:00 09/21/17 05:59 08/25/17 05:46 125 MCG Losartan Potassium (coZAAR TAB) 25 mg DAILY PO 08/22/17 09:00 09/21/17 08:59 08/25/17 07:57 25 MG Prochlorperazine Edisylate 5 mg/ Syringe 5 ml @ 5 mls/min Q6H PRN IV 08/22/17 00:45 09/21/17 00:44 Loratadine (Claritin Tab) 10 mg DAILY PRN PO 08/22/17 00:45 09/21/17 00:44 08/23/17 07:36 10 MG Sertraline HCl (Zoloft Tab) 200 mg DAILY PO 08/22/17 09:00 09/21/17 08:59 08/25/17 07:56 200 MG Nicotine (Nicoderm Cq 21MG Patch) 1 patch QAM TD 08/22/17 09:00 09/21/17 08:59 08/22/17 02:09 1 PATCH Miscellaneous (Remove Nicoderm Patch) 1 ea HS N/A 08/22/17 21:00 09/21/17 20:59 Carvedilol (Coreg Tab) 3.125 mg BID PO 08/22/17 21:00 09/21/17 08:59 08/25/17 07:57 3.125 MG Miscellaneous (Iv Fluids Completed) 1 ea PRN PRN N/A 08/22/17 04:00 08/22/18 03:59 Lidocaine (Lidoderm Patch 5%) 1 patch QAM TD 08/23/17 09:00 09/22/17 08:59 08/24/17 07:51 1 PATCH Miscellaneous (Remove Lidoderm Patch) 1 ea DAILY@21 N/A 08/22/17 21:00 09/21/17 20:59 Sodium Chloride 1,000 ml @ 80 mls/hr [id number] IV 08/22/17 10:15 09/21/17 10:14 08/25/17 02:02 80 MLS/HR Gadobutrol (Gadavist) 9 mmol UD PRN IV 08/22/17 10:30 08/26/17 10:29 Senna/Docusate Sodium (Senokot S Tab) 1 tab BID PO 08/23/17 21:00 09/22/17 20:59 08/25/17 07:56 1 TAB Nortriptyline HCl (Pamelor Cap) 50 mg HS PO 08/24/17 21:00 09/21/17 20:59 08/24/17 20:51 50 MG Miconazole Nitrate (Desenex Powder) 1 appln PRN PRN EXT 08/25/17 05:30 09/24/17 05:29 Review of Systems Denies any recent history of fever, night sweats, unexplained weight loss, or constitutional symptoms. Otherwise, 8 point review of system has been reported to be negative. Physical Exam Height & Weight: Height 5 feet, 4.00 inches. Weight 98.000 (Kilograms) 216 (Pounds) Last Vital Signs Documentation Date Time Temp Pulse Resp B/P (MAP) Pulse Ox O2 Delivery O2 Flow Rate FiO2 08/25/17 06:53 37.0 87 20 130/72 (91) 87 Room Air Exam: Upon entering the room, patient was noted to be awake and alert. She was laying in a supine position and appear to be agitated. She was oriented to time and person. She was uncooperative and refused any further physical examination to be performed. She requested hydrocodone. Laboratory Laboratory Results (Last CBC): 08/25/17 07:47 Copper levels pending. Imaging CT: non enhanced, reports reviewed CT Findings CERVICAL SPINE CT: IMPRESSION: 1. No acute cervical spine fracture or subluxation. 2. Mild age indeterminate compression fracture of the inferior endplate of T2. Electronically signed by: Servando Culp M.D. 08/21/2017 9:58 PM Dictated Date/Time: 08/21/2017 9:29 PM [place] Drug Monitoring Program Search Results: patient reviewed within database Drug Monitoring Findings: Patient had identified on the website. Opioid Risk Assessment Risk assessment performed, high risk identified Assessment 1. Lumbar postlaminectomy syndrome. 2. Myofascial pain by history. 3. Noncompliance with prescribed medications including antidepressants and opioids. 4. Multiple comorbid conditions including obstructive sleep apnea and concomitant use of psychotropic medications. Recommendations 1. Based on patient's psychosocial comorbid conditions as well as multiple medical conditions, and history of previous noncompliance to pharmacologic agents, patient is a poor candidate for pharmacotherapy for her chronic pain issues unless the patient is a supervised setting or her medications managed by a automotive lot attendant. 2. Would recommend reevaluation for metabolic causes of chronic generalized pain including Lyme's titer, checking thyroid functions, calcium levels, vitamin D levels to rule out any metabolic causes of her chronic pain complaints. 3. Recommend x-rays of the thoracolumbar spine to make sure patient has not sustained any vertebral fractures as result of multiple falls. 4. Recommend physical therapy and Occupational Therapy and organize rehabilitative program upon discharge. 5. Agree with weaning patient off the nortriptyline as it does not appear to provide any benefit and there is a potential for misuse of this medication. We deferred this to the treating providers.
--- NOTE | 2017-08-25 11:00 | DIAGNOSTIC IMAGING REPORT ---
LUMBAR SPINE 2 OR 3 VIEWS CLINICAL HISTORY: multiple falls trauma. Pain. COMPARISON STUDY: None FINDINGS: Findings consistent with laminectomy and fusion from L2 through S1. Disc spacer is present at L4-L5. There is significant degenerative disc change at L1-L2 and T12-L1. No evidence for an acute compression deformity. IMPRESSION: Degenerative and postoperative change. No acute process. The above report was generated using voice recognition software. It may contain grammatical, syntax or spelling errors. Electronically signed by: Minh Ricks M.D. 08/25/2017 10:58 AM Dictated Date/Time: 08/25/2017 10:58 AM
--- NOTE | 2017-08-25 11:03 | DIAGNOSTIC IMAGING REPORT ---
THORACIC SPINE 3 VIEWS ROUTINE CLINICAL HISTORY: 72 years-old Female presenting with multiple falls. TECHNIQUE: 3 views of the thoracic spine were obtained. COMPARISON: None. FINDINGS: Slightly exaggerated thoracic kyphosis. Minimal anterior vertebral body height loss in one of the midthoracic vertebral bodies with 36% anterior height loss. No scoliotic curvature. Partially visualized posterior lumbar fusion hardware at L2. The upper thoracic spine is poorly visualized. No significant degenerative changes are evident. An anastomotic suture line may be present in the epigastrium. Left atrial enlargement suspected. IMPRESSION: 1. Mild anterior vertebral body height loss of one of the midthoracic vertebral bodies. This could represent age-indeterminate compression deformity and likely implies underlying osteopenia. Further evaluation with cross-sectional imaging could be considered. Specifically, noncontrast MR of the thoracic spine could demonstrate the acuity of this potential compression deformity. Electronically signed by: Elliot Madrid M.D. 08/25/2017 11:02 AM Dictated Date/Time: 08/25/2017 10:59 AM
[2017-08-25 11:19] LABS: CALCIUM 9.8 mg/dl (8.5-10.1)
[2017-08-25] MEDS: ACETAMINOPHEN 325 MG TAB PO PRN (14:28)
--- NOTE | 2017-08-25 14:58 | Neurology Progress Notes ---
Neurology Progress Note Date of Service Aug 25, 2017. Franklin Quevedo has a PMH of CAD, status post stenting, PVD, gastric bypass, HTN, DM2 on oral meds, ongoing tobacco abuse, chronic back pain sp surgery , myofascial pain syndrome, LAMBERT on CPAP, primary hyperparathyroidism status post surgery. she had her back surgery in 2012 which she states did not relieve her pain. She has been off vicodin for more that a year and states she has not had relief from the pain since then. she has seen [facility] who prescribed nortriptyline, muscle relaxants. She state she has been taking Benadryl for hives she thinks 5-6 tablets per day. she state she does not get dizzy, sweating or light headed, vertigo when she falls but does not remember much about falling. She states it usually happens when she goes from sitting to standing. She thinks she just moves to fast. Prior to this admission she had a fall and she hit her head. She states she was to bedside today but did not walk. The pain seems to be better but she is still not moving well. denies CP, SOB, abdominal pain, N, V, bowel or bladder issues. Objective Date Time Temp Pulse Resp B/P (MAP) Pulse Ox O2 Delivery O2 Flow Rate FiO2 08/25/17 08:30 Room Air 08/25/17 06:53 37.0 87 20 130/72 (91) 87 Room Air 08/25/17 00:39 37.3 50 20 119/73 (88) 91 Room Air 08/25/17 00:10 94 Room Air 08/24/17 20:34 Room Air 08/24/17 16:00 Room Air Last 24 Hours Test 08/24/17 16:35 08/24/17 20:11 08/25/17 07:37 08/25/17 07:47 Bedside Glucose 146 mg/dl 118 mg/dl 108 mg/dl White Blood Count 6.55 K/uL Red Blood Count 3.16 M/uL Hemoglobin 10.3 g/dL Hematocrit 31.4 % Mean Corpuscular Volume 99.4 fL Mean Corpuscular Hemoglobin 32.6 pg Mean Corpuscular Hemoglobin Concent 32.8 g/dl Platelet Count 134 K/uL Mean Platelet Volume 11.2 fL Neutrophils (%) (Auto) 73.1 % Lymphocytes (%) (Auto) 13.6 % Monocytes (%) (Auto) 12.2 % Eosinophils (%) (Auto) 0.8 % Basophils (%) (Auto) 0.0 % Neutrophils # (Auto) 4.79 K/uL Lymphocytes # (Auto) 0.89 K/uL Monocytes # (Auto) 0.80 K/uL Eosinophils # (Auto) 0.05 K/uL Basophils # (Auto) 0.00 K/uL RDW Standard Deviation 48.1 fL RDW Coefficient of Variation 13.2 % Immature Granulocyte % (Auto) 0.3 % Immature Granulocyte # (Auto) 0.02 K/uL Sodium Level 136 mmol/L Potassium Level 4.0 mmol/L Chloride Level 109 mmol/L Carbon Dioxide Level 18 mmol/L Anion Gap 9.0 mmol/L Blood Urea Nitrogen 19 mg/dl Creatinine 0.68 mg/dl Est Creatinine Clear Calc Drug Dose 86.3 ml/min Estimated GFR () 102.0 Estimated GFR (Non- 88.0 BUN/Creatinine Ratio 27.8 Random Glucose 104 mg/dl Calcium Level 9.6 mg/dl Magnesium Level 1.9 mg/dl Test 08/25/17 10:19 08/25/17 11:19 Calcium Level 9.8 mg/dl Thyroid Stimulating Hormone (TSH) 0.562 uIu/ml Free Thyroxine 1.44 ng/dl Lyme Disease IgG Antibody NEG Lyme Disease IgM Antibody NEG Bedside Glucose 137 mg/dl Imaging: L spine xray- : Findings consistent with laminectomy and fusion from L2 through S1. Disc spacer is present at L4-L5. There is significant degenerative disc change at L1-L2 and T12-L2 No evidence for an acute compression deformity. t spine x ray- . Mild anterior vertebral body height loss of one of the midthoracic vertebral bodies. This could represent age-indeterminate compression deformity and likely implies underlying osteopenia. Further evaluation with cross-sectional imaging could be considered. Specifically, noncontrast MR of the thoracic spine could demonstrate the acuity of this potential compression deformity. Exam: Physical Exam: Constitutional: appearance nourished, obese Ears, Nose, Mouth and Throat: mucous membranes moist, no injection and skin normal, eyes normal Cardiovascular: normal S-1 and S-2 and regular rate and rhythm Respiratory: wheezing with inspiration Musculoskeletal: bilateral 2+ pitting edema Skin: no stigmata of neurocutaneous disease noted and normal and intact Eyes: extraocular muscles intact (EOMI) and pupils equal, round and reactive to light (PERRL) NEUROLOGIC EXAMINATION: Mental status: Alert and interactive [facility]ed [facility] Oriented to person Speech fluent with no evidence of aphasia Cranial Nerves smile eye brow raise symmetric Reflexes: Deep tendon reflexes were symmetric UE, LE decreased Plantar absent Sensory: no loss sensation vibration, decrease to knee with cool touch, GT proprioception in tact Coordination: finger to nose without bipass slight tremor Gait/Stance: Posture normal. Gait normal: with steady with steps, base, turning, heel and toe walking and tandem gait. Motor: Negative for pronator drift of out stretched arms with eyes closed. 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 plantar flex ext 5/5 bilaterally Current Inpatient Medications Medications (Trade) Dose Ordered Sig/Tyron Route Start Time Stop Time Status Last Admin Dose Admin Enoxaparin Sodium (Lovenox Inj) 40 mg Q24H SC 08/22/17 06:00 09/21/17 05:59 08/25/17 05:45 40 MG Acetaminophen (Tylenol Tab) 650 mg Q4H PRN PO 08/22/17 00:45 09/21/17 00:44 08/25/17 14:28 650 MG Nitroglycerin (Nitrostat Tab) 0.4 mg UD PRN SL 08/22/17 00:45 09/21/17 00:44 Insulin Aspart (novoLOG ASPART) SLIDING SCALE If C... ACHS SC 08/22/17 07:00 09/21/17 06:59 08/22/17 08:51 1 UNITS Glucose (Glucose 40% Gel) 15-30 GRAMS 15 GRAMS... UD PRN PO 08/22/17 00:45 09/21/17 00:44 Glucose (Glucose Chew Tab) 4-8 Tablets 4 Tabl... UD PRN PO 08/22/17 00:45 09/21/17 00:44 Dextrose (Dextrose 50% 50ML Syringe) 25-50ML OF 50% DW IV FOR... UD PRN IV 08/22/17 00:45 09/21/17 00:44 Glucagon (Glucagon Inj) 1 mg UD PRN SQ 08/22/17 00:45 09/21/17 00:44 Clopidogrel Bisulfate (plAVix TAB) 75 mg DAILY PO 08/22/17 09:00 09/21/17 08:59 08/25/17 07:57 75 MG Isosorbide Mononitrate (Imdur Ext Rel Tab) 30 mg QAM PO 08/22/17 09:00 09/21/17 08:59 08/25/17 07:57 30 MG Levothyroxine Sodium (Synthroid Tab) 125 mcg DAILYBB PO 08/22/17 06:00 09/21/17 05:59 08/25/17 05:46 125 MCG Losartan Potassium (coZAAR TAB) 25 mg DAILY PO 08/22/17 09:00 09/21/17 08:59 08/25/17 07:57 25 MG Prochlorperazine Edisylate 5 mg/ Syringe 5 ml @ 5 mls/min Q6H PRN IV 08/22/17 00:45 09/21/17 00:44 Loratadine (Claritin Tab) 10 mg DAILY PRN PO 08/22/17 00:45 09/21/17 00:44 08/23/17 07:36 10 MG Sertraline HCl (Zoloft Tab) 200 mg DAILY PO 08/22/17 09:00 09/21/17 08:59 08/25/17 07:56 200 MG Nicotine (Nicoderm Cq 21MG Patch) 1 patch QAM TD 08/22/17 09:00 09/21/17 08:59 08/22/17 02:09 1 PATCH Miscellaneous (Remove Nicoderm Patch) 1 ea HS N/A 08/22/17 21:00 09/21/17 20:59 Carvedilol (Coreg Tab) 3.125 mg BID PO 08/22/17 21:00 09/21/17 08:59 08/25/17 07:57 3.125 MG Miscellaneous (Iv Fluids Completed) 1 ea PRN PRN N/A 08/22/17 04:00 08/22/18 03:59 Lidocaine (Lidoderm Patch 5%) 1 patch QAM TD 08/23/17 09:00 09/22/17 08:59 08/24/17 07:51 1 PATCH Miscellaneous (Remove Lidoderm Patch) 1 ea DAILY@21 N/A 08/22/17 21:00 09/21/17 20:59 Sodium Chloride 1,000 ml @ 80 mls/hr [id number] IV 08/22/17 10:15 09/21/17 10:14 08/25/17 14:27 80 MLS/HR Gadobutrol (Gadavist) 9 mmol UD PRN IV 08/22/17 10:30 08/26/17 10:29 Senna/Docusate Sodium (Senokot S Tab) 1 tab BID PO 08/23/17 21:00 09/22/17 20:59 08/25/17 07:56 1 TAB Nortriptyline HCl (Pamelor Cap) 50 mg HS PO 08/24/17 21:00 09/21/17 20:59 08/24/17 20:51 50 MG Miconazole Nitrate (Desenex Powder) 1 appln PRN PRN EXT 08/25/17 05:30 09/24/17 05:29 Impression 72 year old female s/p multiple falls Plan 1. orthostatic blood pressures pending 2. diabetic polyneuropathy bi/lateral LE 3. Stopped Ultram can cause additional confusion 4. PT/OT for discharge needs 5. Benadryl has been stopped -would not use narcotics for pain control 6. may need higher level of can considering the number of falls 7. MRI brain no acute findings 8. complains of diffuse pain- maybe underlying cause. 9. nortriptyline tapering to off can cause alot of side effects in patient of this age, dry, mouth confusion, balance issue 10. thiamine, copper,pending results vit E folate b12,-high normal 11. EMG would be helpful after the pain is controlled as out patient 12. significant findings on plain films t spine, MRI would be helpful to evaluate 13. LE weakness will henosn spine her to evaluate for lesions or compressions schedule with Dr Quiñones as outpatient for EMG 40 minutes bilateral LE next available I have seen and discussed above patient with Dr Barbie Quiñones, neurology Pt seen, remains unchanged with LE weakness. P MRI C, T and L spine. CAYETANO Quiñones MD
--- NOTE | 2017-08-25 16:11 | Progress Note ---
Medicine Progress Note Date & Time of Visit: Aug 25, 2017 at 16:08. Subjective seen resting in bed, alert, oriented x 3 appears more comfortable today states pain is about the same denies confusion denies chest pain, dyspnea, palpitations no other symptoms Objective Last 8 Hrs Date Time Temp Pulse Resp B/P (MAP) Pulse Ox O2 Delivery O2 Flow Rate FiO2 08/25/17 15:56 37.0 50 20 120/69 (86) 90 Nasal Cannula 2.0 08/25/17 08:30 Room Air Physical Exam: General- oriented x 3, not in distress, speaks in sentences with no effort Eyes- anicteric Neck- supple, no JVD Lungs- clear to auscultation bl Heart- regular rhythm; no murmur, normal rate Abdomen- normal bowel sounds, soft, nontender, no masses Extremities- right elbow with NO tenderness, and no warmth, full ROM, no edema trace pretibial edema, no calf tenderness; peripheral pulses intact Neuro- alert, oriented x 3; PERRL, EOMI; no facial palsy; no dysarthria; motor 5 /5 bilaterally; sensation 100% no other gross focal neuro deficits Skin- warm & dry Laboratory Results: Last 24 Hours Test 08/24/17 16:35 08/24/17 20:11 08/25/17 07:37 08/25/17 07:47 Bedside Glucose 146 mg/dl 118 mg/dl 108 mg/dl White Blood Count 6.55 K/uL Red Blood Count 3.16 M/uL Hemoglobin 10.3 g/dL Hematocrit 31.4 % Mean Corpuscular Volume 99.4 fL Mean Corpuscular Hemoglobin 32.6 pg Mean Corpuscular Hemoglobin Concent 32.8 g/dl Platelet Count 134 K/uL Mean Platelet Volume 11.2 fL Neutrophils (%) (Auto) 73.1 % Lymphocytes (%) (Auto) 13.6 % Monocytes (%) (Auto) 12.2 % Eosinophils (%) (Auto) 0.8 % Basophils (%) (Auto) 0.0 % Neutrophils # (Auto) 4.79 K/uL Lymphocytes # (Auto) 0.89 K/uL Monocytes # (Auto) 0.80 K/uL Eosinophils # (Auto) 0.05 K/uL Basophils # (Auto) 0.00 K/uL RDW Standard Deviation 48.1 fL RDW Coefficient of Variation 13.2 % Immature Granulocyte % (Auto) 0.3 % Immature Granulocyte # (Auto) 0.02 K/uL Sodium Level 136 mmol/L Potassium Level 4.0 mmol/L Chloride Level 109 mmol/L Carbon Dioxide Level 18 mmol/L Anion Gap 9.0 mmol/L Blood Urea Nitrogen 19 mg/dl Creatinine 0.68 mg/dl Est Creatinine Clear Calc Drug Dose 86.3 ml/min Estimated GFR () 102.0 Estimated GFR (Non- 88.0 BUN/Creatinine Ratio 27.8 Random Glucose 104 mg/dl Calcium Level 9.6 mg/dl Magnesium Level 1.9 mg/dl Test 08/25/17 10:19 08/25/17 11:19 Calcium Level 9.8 mg/dl Thyroid Stimulating Hormone (TSH) 0.562 uIu/ml Free Thyroxine 1.44 ng/dl Lyme Disease IgG Antibody NEG Lyme Disease IgM Antibody NEG Bedside Glucose 137 mg/dl Assessment & Plan 72 year old female with history of CAD, DM, HTN, Gastric Bypass presenting with falls. ALTERED MENTAL STATUS, LIKELY DELIRIUM - likely secondary to polypharmacy (muscle relaxants, excessive OTC Benadryl intake as per family in particular) - CT head: no acute findings MRI Brain: Chronic Small Vessel changes - Neuro consulted - now only on Nortriptyline- being tapered off, Sertraline - mental status back to baseline CHRONIC PAIN SYNDROME chronic back pain status post surgery/hx myofascial pain syndrome as per records - consulted Pain Management - serologies ordered - Thoracic spine xray: possible midthoracic compression fracture Lumbar spine xray: degenerative joint disease - not a good candidate for narcotics at this time continue Tylenol, PT/OT S/P FALLS - likely secondary to polypharmacy, deconditioning - PT/OT in progress - Left Rib anterior 6th Fracture: Incentive [place] - R elbow xray to r/o Fracture: negative - patient agreeable to go to rehab/snf CAD S/P STENT - continue on coreg, Imdur, losartan and plavix. HYPERTENSION - stable DM2 - on oral meds, well controlled as of recent outpatient HgA1c of 5.9 in May 2017. ISS in hospital. Ongoing tobacco abuse - counselling DVT PROPHYLAXIS Lovenox DISPOSITION lives alone at home PT/OT in progress patient agreeable with Rehab now called daughter to give update, no answer, left a voicemail requesting call back Current Inpatient Medications: Current Inpatient Medications Medications (Trade) Dose Ordered Sig/Tyron Route Start Time Stop Time Status Last Admin Dose Admin Enoxaparin Sodium (Lovenox Inj) 40 mg Q24H SC 08/22/17 06:00 09/21/17 05:59 08/25/17 05:45 40 MG Acetaminophen (Tylenol Tab) 650 mg Q4H PRN PO 08/22/17 00:45 09/21/17 00:44 08/25/17 14:28 650 MG Nitroglycerin (Nitrostat Tab) 0.4 mg UD PRN SL 08/22/17 00:45 09/21/17 00:44 Insulin Aspart (novoLOG ASPART) SLIDING SCALE If C... ACHS SC 08/22/17 07:00 09/21/17 06:59 08/22/17 08:51 1 UNITS Glucose (Glucose 40% Gel) 15-30 GRAMS 15 GRAMS... UD PRN PO 08/22/17 00:45 09/21/17 00:44 Glucose (Glucose Chew Tab) 4-8 Tablets 4 Tabl... UD PRN PO 08/22/17 00:45 09/21/17 00:44 Dextrose (Dextrose 50% 50ML Syringe) 25-50ML OF 50% DW IV FOR... UD PRN IV 08/22/17 00:45 09/21/17 00:44 Glucagon (Glucagon Inj) 1 mg UD PRN SQ 08/22/17 00:45 09/21/17 00:44 Clopidogrel Bisulfate (plAVix TAB) 75 mg DAILY PO 08/22/17 09:00 09/21/17 08:59 08/25/17 07:57 75 MG Isosorbide Mononitrate (Imdur Ext Rel Tab) 30 mg QAM PO 08/22/17 09:00 09/21/17 08:59 08/25/17 07:57 30 MG Levothyroxine Sodium (Synthroid Tab) 125 mcg DAILYBB PO 08/22/17 06:00 09/21/17 05:59 08/25/17 05:46 125 MCG Losartan Potassium (coZAAR TAB) 25 mg DAILY PO 08/22/17 09:00 09/21/17 08:59 08/25/17 07:57 25 MG Prochlorperazine Edisylate 5 mg/ Syringe 5 ml @ 5 mls/min Q6H PRN IV 08/22/17 00:45 09/21/17 00:44 Loratadine (Claritin Tab) 10 mg DAILY PRN PO 08/22/17 00:45 09/21/17 00:44 08/23/17 07:36 10 MG Sertraline HCl (Zoloft Tab) 200 mg DAILY PO 08/22/17 09:00 09/21/17 08:59 08/25/17 07:56 200 MG Nicotine (Nicoderm Cq 21MG Patch) 1 patch QAM TD 08/22/17 09:00 09/21/17 08:59 08/22/17 02:09 1 PATCH Miscellaneous (Remove Nicoderm Patch) 1 ea HS N/A 08/22/17 21:00 09/21/17 20:59 Carvedilol (Coreg Tab) 3.125 mg BID PO 08/22/17 21:00 09/21/17 08:59 08/25/17 07:57 3.125 MG Miscellaneous (Iv Fluids Completed) 1 ea PRN PRN N/A 08/22/17 04:00 08/22/18 03:59 Lidocaine (Lidoderm Patch 5%) 1 patch QAM TD 08/23/17 09:00 09/22/17 08:59 08/24/17 07:51 1 PATCH Miscellaneous (Remove Lidoderm Patch) 1 ea DAILY@21 N/A 08/22/17 21:00 09/21/17 20:59 Sodium Chloride 1,000 ml @ 80 mls/hr [id number] IV 08/22/17 10:15 09/21/17 10:14 08/25/17 14:27 80 MLS/HR Gadobutrol (Gadavist) 9 mmol UD PRN IV 08/22/17 10:30 08/26/17 10:29 Senna/Docusate Sodium (Senokot S Tab) 1 tab BID PO 08/23/17 21:00 09/22/17 20:59 08/25/17 07:56 1 TAB Nortriptyline HCl (Pamelor Cap) 50 mg HS PO 08/24/17 21:00 09/21/17 20:59 08/24/17 20:51 50 MG Miconazole Nitrate (Desenex Powder) 1 appln PRN PRN EXT 08/25/17 05:30 09/24/17 05:29
[2017-08-25] MEDS: NORTRIPTYLINE HCL 25 MG CAP PO SCH (21:00)
--- NOTE | 2017-08-25 22:09 | DIAGNOSTIC IMAGING REPORT ---
CHEST ONE VIEW PORTABLE HISTORY: worsening hypoxia. COMPARISON: Chest 08/21/2017. FINDINGS: No pneumothorax. The heart is enlarged. The patient is rotated on this study. Progressive left mid to lower lung zone airspace opacity. Interstitial thickening persists. No pleural effusions. IMPRESSION: 1. Progressive left mid to lower lung zone airspace opacity. This favors a pneumonia. 2. There is also diffuse interstitial and vascular thickening which may represent superimposed mild pulmonary edema. Electronically signed by: Carlos Eduardo Nice M.D. 08/25/2017 10:08 PM Dictated Date/Time: 08/25/2017 10:06 PM
[2017-08-25] MEDS ORDERED: SODIUM CHLORIDE 0.9% 1000ML 1,000 ML IV SCH (22:20)
[2017-08-25] MEDS ORDERED: VANCOMYCIN CONSULT ACTIVE PRN (22:21)
[2017-08-25] MEDS ORDERED: PIPERACILL/TAZOBAC CONSULT ACTIVE PRN (22:30)
[2017-08-25] MEDS ORDERED: PIPERACILL/TAZOBAC IV 4.5 GM in DEXTROSE 5% 100ML IV STA (22:31)
[2017-08-25 22:53] LABS: HEMATOCRIT 33.8 % (37-47); HEMOGLOBIN 11.2 g/dL (12.0-16.0); MEAN CELL VOLUME 99.7 fL (80-100); PLATELET COUNT 168 K/uL (130-400); RED CELL DISTRIBUTION WIDTH CV 13.4 % (11.5-14.5); RED CELL DISTRIBUTION WIDTH SD 48.7 fL (36.4-46.3); WHITE BLOOD COUNT 9.52 K/uL (4.8-10.8)
--- NOTE | 2017-08-25 22:55 | Pharmacy Progress Note ---
Pharmacy Abx Initial Consult Date of Service Aug 25, 2017. Pharmacy Dosing Scope Date of Consult: 08/25/17 Consultation requested by: Dr. Jamil Pharmacy is consulted to initiate Vancomycin/Zosyn IV dosing therapy, order appropriate labs and adjust drug dose/frequency. Subjective The patient is a 72 year old female admitted on Aug 24, 2017 at 14:47. Objective Height (Feet): 5 Height (Inches): 4.00 Weight (Kilograms): 98.000 Vital Signs (Past 12Hrs) Vital Signs Past 12 Hours Date Time Temp Pulse Resp B/P (MAP) Pulse Ox O2 Delivery O2 Flow Rate FiO2 08/25/17 21:27 37.4 110 24 82/25 (44) 89 Nasal Cannula 6.0 Oxymask 08/25/17 16:30 Room Air 08/25/17 15:56 37.0 50 20 120/69 (86) 90 Nasal Cannula 2.0 Lab Results (24Hrs) Laboratory Tests (24 Hours) Test 08/25/17 07:47 08/25/17 22:29 White Blood Count 6.55 K/uL (4.8-10.8) Red Blood Count 3.16 M/uL (4.2-5.4) L Hemoglobin 10.3 g/dL (12.0-16.0) L Hematocrit 31.4 % (37-47) L Mean Corpuscular Volume 99.4 fL (80-100) Mean Corpuscular Hemoglobin 32.6 pg (25-34) Mean Corpuscular Hemoglobin Concent 32.8 g/dl (32-36) Platelet Count 134 K/uL (130-400) Mean Platelet Volume 11.2 fL (7.4-10.4) H Neutrophils (%) (Auto) 73.1 % Lymphocytes (%) (Auto) 13.6 % Monocytes (%) (Auto) 12.2 % Eosinophils (%) (Auto) 0.8 % Basophils (%) (Auto) 0.0 % Neutrophils # (Auto) 4.79 K/uL (1.4-6.5) Lymphocytes # (Auto) 0.89 K/uL (1.2-3.4) L Monocytes # (Auto) 0.80 K/uL (0.11-0.59) H Eosinophils # (Auto) 0.05 K/uL (0-0.5) Basophils # (Auto) 0.00 K/uL (0-0.2) Micro Results Date/Time Source Procedure Growth Status 08/25/17 22:40 Blood Blood Culture Pending Ordered 08/25/17 22:29 Blood Blood Culture Pending Ordered 08/21/17 21:03 Urine , Clean Catch Urine Culture - Final NO GROWTH - LESS THAN 1,000 COLONIES/ML Complete Assessment & Plan Assessment Ms. Zhou is a 72yo F being started on vancomycin and zosyn for HAP. She was originally admitted 08/21/17 for AMS. Her renal fxn looks to be around baseline. T1/2=9hrs, ke=0.0758, Vd=0.6. No h/o MDRO. At this juncture she is not experiencing leukocytosis or is febrile. BC, UC, and MRSA nasal swab all ordered and pending. Plan Vancomycin: * Vanco 2500mg (25mg/kg) to quickly achieve a peak of ~40mcg/mL * Then Vanco 1500mg (15mg/kg) q10 set to start at 0600 on 08/26/17 * Goal trough for pulmonary source: 15-20mcg/mL * Trough ordered for 08/27/17 @ 0130, this is prior to Css Zosyn: * Zosyn 30min infsn then Zosyn 4.5g q8, appropriate for clinical status and eCrCl>20cc/min , forgetfulness, hallucinations, recurrent falls likely secondary to polypharmacy (muscle relaxants, excessive OTC Benadryl intake as per family in particular) Pharmacy will continue to follow and will adjust dose/frequency as necessary. Thank you.
[2017-08-25] MEDS ORDERED: VANCOMYCIN INJ 2,500 MG in SODIUM CHLORIDE 0.9% 500ML 500 ML IV ONE (23:00)
[2017-08-25 23:20] LABS: CREATININE 0.74 mg/dl (0.60-1.20); MEAN CORPUSCULAR HGB CONC 33.1 g/dl (32-36); POTASSIUM 4.2 mmol/L (3.5-5.1)
[2017-08-25 23:24] LABS: EOS % 0.5 %; EOS ABS # 0.05 K/uL (0-0.5); IG# 0.08 K/uL (0.00-0.02); LYMPH % 7.6 %; LYMPH ABS # 0.72 K/uL (1.2-3.4); MONO ABS # 1.05 K/uL (0.11-0.59); NEUT % 80.1 %; NEUT ABS # 7.62 K/uL (1.4-6.5)
[2017-08-25 23:48] LABS: INFLUENZA A PCR Neg for Influ A (NEG); INFLUENZA B PCR Neg for Influ B (NEG)
[2017-08-26] VITALS (11 sets, daily range): BP systolic 125–161; BP diastolic 64–85; PULSE 61–106; TEMP 36.5–37; O2SAT 90–97
--- NOTE | 2017-08-26 01:05 | Progress Note ---
Progress Note Date of Service Aug 25, 2017. Progress Note 2130: Contacted by nurse regarding increased SOB and hypoxia with patient requiring 6L oxymask to maintain sat 92%. On exam her BP was in the 80s systolic with a HR around 108 and a fluid bolus was ordered (later cancelled when repeat BP came back at 150 systolic shortly after). She is reporting coughing and SOB, denies chest pain, fevers or chills. She feels like she has pneumonia because she has had it before in a similar situation. Recent fall with rib fracture makes this a possibility. She denies any fluid retention or weight gain but has been off her diuretics since admission on 08/22. She appears to have dry mucous membranes (may be the nortriptyline?) and her urine is dark and concentrated. Exam reveals mild rhonchi at bases L>R and diffuse mild wheezing throughout all lung werner. HR is regular and tachy. Skin is warm and dry without diaphoresis. She is obese and requires assistance to sit up in bed. She appears slightly winded with some conversational dyspnea but is alert and answering questions appropriately. CXR reveals a new LLL pneumonia with poss superimposed mild pulmonary edema. She has a temp 99.7 on repeat vitals. CBC reveals no leukocytosis. PRP, procalcitonin, blood and sputum cultures are pending. Flu PCR pending. Empiric Vanc and Zosyn were started to cover GUAJARDO- bugs such as MRSA and gram negatives such as pseudomonas. Aspiration is also a possibility per nursing staff with recent confusion. Daughter was called and LM as she was unavailable to speak. Transferred patient to telemetry and will reassess. DO Omero 0100: Reassessed patient in Room 236. Zosyn given, vanc is running. She appears more comfortable and is oxygenating 94% on 4L via nasal canula. She is still mentating well and feels that her breathing is improved. On exam wheezing is resolved and there are no crackles at bases. Procalcitonin is low, however, this does not exclude local bacterial infection so would proceed with the abx. Other labs are within normal limits. DO Omero
[2017-08-26] MEDS: PIPERACILL/TAZOBAC IV 4.5 GM in DEXTROSE 5% 100ML IV SCH ×3 (04:09→20:00)
[2017-08-26] MEDS ORDERED: VANCOMYCIN INJ 1,500 MG in SODIUM CHLORIDE 0.9% 500ML 500 ML IV SCH (06:00)
[2017-08-26] MEDS: ENOXAPARIN 40 MG/0.4 ML SYR SC SCH (06:03)
[2017-08-26] MEDS: LEVOTHYROXINE 125 MCG TAB PO SCH (06:04)
[2017-08-26] MEDS: ALBUT/IPRATROP 3MG/0.5MG NEB 3 ML VIAL INH SCH ×4 (07:23→19:33)
[2017-08-26 07:43] LABS: CALCIUM 10.2 mg/dl (8.5-10.1); CREATININE 0.7 mg/dl (0.60-1.20); POTASSIUM 4.2 mmol/L (3.5-5.1)
[2017-08-26] MEDS: INSULIN ASPART 100 UNITS/ML 3 ML PEN SC SCH ×4 (07:45→20:12)
[2017-08-26] MEDS: CLOPIDOGREL BISULFATE 75 MG TAB PO SCH (07:51)
[2017-08-26] MEDS: DOCUSATE SODIUM/SENNA 50/8.6MG TAB PO SCH ×2 (07:51→20:09)
[2017-08-26] MEDS: SERTRALINE HCL 100 MG TAB PO SCH (07:51)
[2017-08-26] MEDS: ISOSORBIDE MONONITRATE 30 MG TABCR PO SCH (07:51)
[2017-08-26] MEDS: LOSARTAN POTASSIUM 25 MG TAB PO SCH (07:51)
[2017-08-26] MEDS: LIDODERM (LIDOCAINE) PATCH 5% TD SCH (07:52)
[2017-08-26] MEDS: CARVEDILOL 3.125 MG TAB PO SCH ×2 (07:52→20:07)
[2017-08-26] MEDS: NICOTINE 21 MG/24 HR TDSY TD SCH (07:54)
[2017-08-26] MEDS: SODIUM CHLORIDE 0.9% 1000ML 1,000 ML IV SCH ×2 (08:45→22:05)
--- NOTE | 2017-08-26 08:49 | Progress Note ---
Medicine Progress Note Date & Time of Visit: Aug 26, 2017 at 08:44. Subjective overnight, patient was having SOB, requiring 6 liters o2 CXR LLL Pneumonia started on Vanco , Leighan was somewhat confused overnight per RN on exam, patient seen resting, appears somewhat weak but alert, oriented states she doesn't feel too well no dyspnea, has occasional cough denies significant pain today no other symptoms Objective Last 8 Hrs Date Time Temp Pulse Resp B/P (MAP) Pulse Ox O2 Delivery O2 Flow Rate FiO2 08/26/17 07:26 76 16 96 Nasal Cannula 4.0 08/26/17 07:20 36.8 95 20 147/64 (91) 97 08/26/17 04:00 Nasal Cannula 4.0 Humidified Oxygen 08/26/17 03:17 37.0 96 25 161/85 (110) 96 Nasal Cannula 4.0 Physical Exam: General- oriented x 3, not in distress, speaks in sentences with no effort Eyes- anicteric Neck- no JVD Lungs- mild rales left base, no wheezing Heart- regular rhythm; no murmur, normal rate Abdomen- normal bowel sounds, soft, nontender, no masses Extremities- trace pretibial edema, no calf tenderness; peripheral pulses intact Neuro- alert, oriented x 3; no other gross focal neuro deficits Skin- warm & dry Laboratory Results: Last 24 Hours Test 08/25/17 10:19 08/25/17 11:19 08/25/17 16:03 08/25/17 20:10 Calcium Level 9.8 mg/dl Thyroid Stimulating Hormone (TSH) 0.562 uIu/ml Free Thyroxine 1.44 ng/dl Lyme Disease IgG Antibody NEG Lyme Disease IgM Antibody NEG Bedside Glucose 137 mg/dl 136 mg/dl 118 mg/dl Test 08/25/17 22:29 08/25/17 23:07 08/26/17 06:15 08/26/17 06:26 White Blood Count 9.52 K/uL Red Blood Count 3.39 M/uL Hemoglobin 11.2 g/dL Hematocrit 33.8 % Mean Corpuscular Volume 99.7 fL Mean Corpuscular Hemoglobin 33.0 pg Mean Corpuscular Hemoglobin Concent 33.1 g/dl Platelet Count 168 K/uL Mean Platelet Volume 11.0 fL Neutrophils (%) (Auto) 80.1 % Lymphocytes (%) (Auto) 7.6 % Monocytes (%) (Auto) 11.0 % Eosinophils (%) (Auto) 0.5 % Basophils (%) (Auto) 0.0 % Neutrophils # (Auto) 7.62 K/uL Lymphocytes # (Auto) 0.72 K/uL Monocytes # (Auto) 1.05 K/uL Eosinophils # (Auto) 0.05 K/uL Basophils # (Auto) 0.00 K/uL RDW Standard Deviation 48.7 fL RDW Coefficient of Variation 13.4 % Immature Granulocyte % (Auto) 0.8 % Immature Granulocyte # (Auto) 0.08 K/uL Red Blood Cell Morphology Unremarkable Sodium Level 136 mmol/L 137 mmol/L Potassium Level 4.2 mmol/L 4.2 mmol/L Chloride Level 107 mmol/L 108 mmol/L Carbon Dioxide Level 19 mmol/L 21 mmol/L Anion Gap 10.0 mmol/L 7.0 mmol/L Blood Urea Nitrogen 19 mg/dl 16 mg/dl Creatinine 0.74 mg/dl 0.70 mg/dl Est Creatinine Clear Calc Drug Dose 79.3 ml/min 85.6 ml/min Estimated GFR () 94.5 101.0 Estimated GFR (Non- 81.5 87.2 BUN/Creatinine Ratio 26.1 23.6 Random Glucose 127 mg/dl 144 mg/dl Calcium Level 10.0 mg/dl 10.2 mg/dl Procalcitonin 0.10 ng/ml Influenza Type A (RT-PCR) Neg for Influ A Influenza Type B (RT-PCR) Neg for Influ B Bedside Glucose 150 mg/dl Magnesium Level 1.9 mg/dl Test 08/26/17 08:26 Date/Time Source Procedure Growth Status 08/25/17 22:40 Blood Blood Culture Pending Received 08/25/17 22:29 Blood Blood Culture Pending Received 08/25/17 23:07 Nasal MRSA DNA Surveillance Screen - Final Specimen Negative for MRSA by DNA Probe Complete Assessment & Plan 72 year old female with history of CAD, DM, HTN, Gastric Bypass presenting with falls. ACUTE ON CHRONIC HYPOXIC RESPIRATORY FAILURE PNEUMONIA, LLL - possible HCAP - sputum culture blood cultures nasal MRSA swab negative - Zosyn + Doxy Nebs gentle IV fluids ALTERED MENTAL STATUS, LIKELY DELIRIUM - likely secondary to polypharmacy (muscle relaxants, excessive OTC Benadryl intake as per family in particular) - CT head: no acute findings MRI Brain: Chronic Small Vessel changes - Neuro consulted - now only on Nortriptyline- being tapered off, Sertraline decrease Norp to 25mg tomorrow - mental status back to baseline CHRONIC PAIN SYNDROME chronic back pain status post surgery/hx myofascial pain syndrome as per records - consulted Pain Management - serologies ordered - Thoracic spine xray: possible midthoracic compression fracture Lumbar spine xray: degenerative joint disease - not a good candidate for narcotics at this time continue Tylenol, PT/OT S/P FALLS - likely secondary to polypharmacy, deconditioning - PT/OT in progress - Left Rib anterior 6th Fracture: Incentive [place] - R elbow xray to r/o Fracture: negative - patient agreeable to go to rehab/snf CAD S/P STENT - continue on coreg, Imdur, losartan and plavix. HYPERTENSION - stable DM2 - on oral meds, well controlled as of recent outpatient HgA1c of 5.9 in May 2017. ISS in hospital. Ongoing tobacco abuse - counselling DVT PROPHYLAXIS Lovenox DISPOSITION lives alone at home PT/OT in progress patient agreeable with Rehab now called daughter to give update, no answer, left a voicemail requesting call back Current Inpatient Medications: Current Inpatient Medications Medications (Trade) Dose Ordered Sig/Tyron Route Start Time Stop Time Status Last Admin Dose Admin Enoxaparin Sodium (Lovenox Inj) 40 mg Q24H SC 08/22/17 06:00 09/21/17 05:59 08/26/17 06:03 40 MG Acetaminophen (Tylenol Tab) 650 mg Q4H PRN PO 08/22/17 00:45 09/21/17 00:44 08/25/17 14:28 650 MG Nitroglycerin (Nitrostat Tab) 0.4 mg UD PRN SL 08/22/17 00:45 09/21/17 00:44 Insulin Aspart (novoLOG ASPART) SLIDING SCALE If C... ACHS SC 08/22/17 07:00 09/21/17 06:59 08/22/17 08:51 1 UNITS Glucose (Glucose 40% Gel) 15-30 GRAMS 15 GRAMS... UD PRN PO 08/22/17 00:45 09/21/17 00:44 Glucose (Glucose Chew Tab) 4-8 Tablets 4 Tabl... UD PRN PO 08/22/17 00:45 09/21/17 00:44 Dextrose (Dextrose 50% 50ML Syringe) 25-50ML OF 50% DW IV FOR... UD PRN IV 08/22/17 00:45 09/21/17 00:44 Glucagon (Glucagon Inj) 1 mg UD PRN SQ 08/22/17 00:45 09/21/17 00:44 Clopidogrel Bisulfate (plAVix TAB) 75 mg DAILY PO 08/22/17 09:00 09/21/17 08:59 08/26/17 07:51 75 MG Isosorbide Mononitrate (Imdur Ext Rel Tab) 30 mg QAM PO 08/22/17 09:00 09/21/17 08:59 08/26/17 07:51 30 MG Levothyroxine Sodium (Synthroid Tab) 125 mcg DAILYBB PO 08/22/17 06:00 09/21/17 05:59 08/26/17 06:04 125 MCG Losartan Potassium (coZAAR TAB) 25 mg DAILY PO 08/22/17 09:00 09/21/17 08:59 08/26/17 07:51 25 MG Prochlorperazine Edisylate 5 mg/ Syringe 5 ml @ 5 mls/min Q6H PRN IV 08/22/17 00:45 09/21/17 00:44 Loratadine (Claritin Tab) 10 mg DAILY PRN PO 08/22/17 00:45 09/21/17 00:44 08/23/17 07:36 10 MG Sertraline HCl (Zoloft Tab) 200 mg DAILY PO 08/22/17 09:00 09/21/17 08:59 08/26/17 07:51 200 MG Nicotine (Nicoderm Cq 21MG Patch) 1 patch QAM TD 08/22/17 09:00 09/21/17 08:59 08/22/17 02:09 1 PATCH Miscellaneous (Remove Nicoderm Patch) 1 ea HS N/A 08/22/17 21:00 09/21/17 20:59 Carvedilol (Coreg Tab) 3.125 mg BID PO 08/22/17 21:00 09/21/17 08:59 08/26/17 07:52 3.125 MG Miscellaneous (Iv Fluids Completed) 1 ea PRN PRN N/A 08/22/17 04:00 08/22/18 03:59 Lidocaine (Lidoderm Patch 5%) 1 patch QAM TD 08/23/17 09:00 09/22/17 08:59 08/26/17 07:52 1 PATCH Miscellaneous (Remove Lidoderm Patch) 1 ea DAILY@21 N/A 08/22/17 21:00 09/21/17 20:59 Gadobutrol (Gadavist) 9 mmol UD PRN IV 08/22/17 10:30 08/26/17 10:29 Senna/Docusate Sodium (Senokot S Tab) 1 tab BID PO 08/23/17 21:00 09/22/17 20:59 08/26/17 07:51 1 TAB Nortriptyline HCl (Pamelor Cap) 50 mg HS PO 08/24/17 21:00 09/21/17 20:59 08/24/17 20:51 50 MG Miconazole Nitrate (Desenex Powder) 1 appln PRN PRN EXT 08/25/17 05:30 09/24/17 05:29 08/26/17 06:02 1 APPLN Albuterol/ Ipratropium (Duoneb) 3 ml QIDR INH 08/26/17 08:00 09/25/17 07:59 08/26/17 07:23 3 ML Miscellaneous Information (Consult) 1 ea UD PRN N/A 08/25/17 22:30 09/24/17 22:29 Piperacillin Sod/ Tazobactam Sod 4.5 gm/Dextrose 120 ml @ 30 mls/hr Q8H IV 08/26/17 04:00 09/02/17 03:59 08/26/17 04:09 30 MLS/HR Doxycycline Hyclate 100 mg/ Dextrose 110 ml @ 50 mls/hr BID IV 08/26/17 09:00 09/02/17 08:59
[2017-08-26] MEDS: DOXYCYCLINE IV 100 MG in DEXTROSE 5% 100ML 100 ML IV SCH ×2 (08:54→20:00)
[2017-08-26 08:56] LABS: EOS % 0.4 %; EOS ABS # 0.04 K/uL (0-0.5); HEMOGLOBIN 10.6 g/dL (12.0-16.0); IG# 0.05 K/uL (0.00-0.02); LYMPH % 8.1 %; LYMPH ABS # 0.76 K/uL (1.2-3.4); MEAN CELL VOLUME 100.3 fL (80-100); MEAN CORPUSCULAR HEMOGLOBIN 32.2 pg (25-34); MEAN CORPUSCULAR HGB CONC 32.1 g/dl (32-36); MEAN PLATELET VOLUME 10.9 fL (7.4-10.4); MONO % 13.1 %; MONO ABS # 1.23 K/uL (0.11-0.59); NEUT % 77.9 %; NEUT ABS # 7.34 K/uL (1.4-6.5); PLATELET COUNT 166 K/uL (130-400); RED CELL DISTRIBUTION WIDTH CV 13.2 % (11.5-14.5); RED CELL DISTRIBUTION WIDTH SD 48.6 fL (36.4-46.3); WHITE BLOOD COUNT 9.42 K/uL (4.8-10.8)
--- NOTE | 2017-08-26 16:12 | DIAGNOSTIC IMAGING REPORT ---
LUMBAR SPINE COMBINATION CLINICAL HISTORY: 72 years-old Female presenting with sudden onset of LE weakness unable to ambulate. TECHNIQUE: Multisequence, multiplanar MR imaging of the lumbar spine was performed before and after the administration of intravenous contrast. IV contrast: 9 mL of Gadavist. COMPARISON: CT of abdomen and pelvis from 2015. FINDINGS: Localizer images: Unremarkable. Posterior transpedicular screw and lars fixation of L2-S1. Laminectomy defects evident from L3 to L5. Levoscoliotic curvature of the upper lumbar spine centered at L1-2. Otherwise lumbar curvature is preserved. Vertebral bodies at the operative levels demonstrate preserved vertebral body heights and alignment. Evaluation of bone marrow is limited by extensive susceptibility artifact arising from the hardware. Allowing for this, fatty endplate changes are evident (Modic type II). Nonoperative levels also demonstrate fatty endplate change though inhomogeneous fat suppression is evident in the lower thoracic spine. Nonoperative levels demonstrate preserved height and alignment. Diffuse intervertebral disc desiccation with disc osteophyte complexes at the nonoperative levels in the lower thoracic spine. The operative levels demonstrate desiccation and height loss. An interbody spacer is noted at L4-5. 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 Mild bilateral neural foraminal narrowing. Allowing for susceptibility artifact of the remaining levels, no significant neural foraminal or spinal canal narrowing. T2 hyperintense lesion in the left ilium with possible correlate on the prior exam. Overall heterogeneous bone marrow signal intensity of the operative and nonoperative levels. Postcontrast imaging demonstrates expected enhancement in the operative bed. No focal fluid collection in the epidural space or paraspinal soft tissues. IMPRESSION: 1. Postsurgical changes of posterior fusion from L2 to S1 with laminectomies of L3-L5. No gross evidence of hardware complication. Allowing for extensive susceptibility artifact at the operative levels, no significant neural foraminal or spinal canal narrowing. 2. 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 3. Circumferential effacement of the thecal sac at L1-2 secondary to a congenitally narrow spinal canal and facet arthropathy. However, no complete effacement of CSF. No convincing evidence of spinal cord impingement. Mild bilateral neural foraminal narrowing at this level also noted. 4. Extensive multilevel degenerative change. The report will be called/faxed according to standard departmental protocol. Electronically signed by: Elliot Madrid M.D. 08/26/2017 4:11 PM Dictated Date/Time: 08/26/2017 3:59 PM
[2017-08-26] MEDS: NORTRIPTYLINE HCL 25 MG CAP PO SCH (20:08)
[2017-08-27] VITALS (10 sets, daily range): BP systolic 101–166; BP diastolic 66–92; PULSE 75–110; TEMP 36.3–37.4; O2SAT 90–95
[2017-08-27] MEDS ORDERED: VANCOMYCIN TROUGH ONE (01:30)
[2017-08-27] MEDS: PIPERACILL/TAZOBAC IV 4.5 GM in DEXTROSE 5% 100ML IV SCH ×3 (04:39→19:55)
[2017-08-27] MEDS: LEVOTHYROXINE 125 MCG TAB PO SCH (06:03)
[2017-08-27] MEDS: ENOXAPARIN 40 MG/0.4 ML SYR SC SCH (06:04)
[2017-08-27] MEDS: INSULIN ASPART 100 UNITS/ML 3 ML PEN SC SCH ×4 (07:00→21:00)
[2017-08-27 07:07] LABS: CALCIUM 10.1 mg/dl (8.5-10.1); CREATININE 0.58 mg/dl (0.60-1.20)
[2017-08-27] MEDS: ALBUT/IPRATROP 3MG/0.5MG NEB 3 ML VIAL INH SCH ×4 (07:23→19:04)
[2017-08-27] MEDS: ISOSORBIDE MONONITRATE 30 MG TABCR PO SCH (08:23)
[2017-08-27] MEDS: DOCUSATE SODIUM/SENNA 50/8.6MG TAB PO SCH ×2 (08:23→21:43)
[2017-08-27] MEDS: LOSARTAN POTASSIUM 25 MG TAB PO SCH (08:23)
[2017-08-27] MEDS: SERTRALINE HCL 100 MG TAB PO SCH (08:24)
[2017-08-27] MEDS: CLOPIDOGREL BISULFATE 75 MG TAB PO SCH (08:24)
[2017-08-27] MEDS: CARVEDILOL 3.125 MG TAB PO SCH ×2 (08:24→21:43)
[2017-08-27] MEDS: LIDODERM (LIDOCAINE) PATCH 5% TD SCH (08:24)
[2017-08-27] MEDS: NICOTINE 21 MG/24 HR TDSY TD SCH (08:25)
[2017-08-27] MEDS: DOXYCYCLINE IV 100 MG in DEXTROSE 5% 100ML 100 ML IV SCH ×2 (08:34→21:00)
--- NOTE | 2017-08-27 10:33 | Pain Management Progress Note ---
Pain Management Progress Note Date of Service Aug 27, 2017. Subjective Patient was seen this morning on rounds and her imaging and laboratory studies were reviewed. At the present time, she reports feeling "okay" in reference to her pain. Reports no new symptoms today. Objective Vital Signs: Last Vital Signs Documentation Date Time Temp Pulse Resp B/P (MAP) Pulse Ox O2 Delivery O2 Flow Rate FiO2 08/27/17 08:00 Nasal Cannula 5.0 08/27/17 07:53 36.6 90 24 142/83 (102) 90 Physical Exam: Brea was sleeping upon entering the room but easily arousable. She responds appropriately and appears comfortable at the present time. She once again declined to be examined today. Laboratory Laboratory Findings 08/26/17 06:26 Red Blood Count 3.29 L, Mean Corpuscular Volume 100.3 H, Mean Corpuscular Hemoglobin 32.2, Mean Corpuscular Hemoglobin Concent 32.1, Mean Platelet Volume 10.9 H, Neutrophils (%) (Auto) 77.9, Lymphocytes (%) (Auto) 8.1, Monocytes (%) ( Auto) 13.1, Eosinophils (%) (Auto) 0.4, Basophils (%) (Auto) 0.0, Neutrophils # (Auto) 7.34 H, Lymphocytes # (Auto) 0.76 L, Monocytes # (Auto) 1.23 H, Eosinophils # (Auto) 0.04, Basophils # (Auto) 0.00 Imaging MRI: non enhanced MRI Findings IMPRESSION: 1. Postsurgical changes of posterior fusion from L2 to S1 with laminectomies of L3-L5. No gross evidence of hardware complication. Allowing for extensive susceptibility artifact at the operative levels, no significant neural foraminal or spinal canal narrowing. 2. 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 3. Circumferential effacement of the thecal sac at L1-2 secondary to a congenitally narrow spinal canal and facet arthropathy. However, no complete effacement of CSF. No convincing evidence of spinal cord impingement. Mild bilateral neural foraminal narrowing at this level also noted. 4. Extensive multilevel degenerative change. The report will be called/faxed according to standard departmental protocol. Electronically signed by: Elliot Madrid M.D. 08/26/2017 4:11 PM Dictated Date/Time: 08/26/2017 3:59 PM Radiology Findings LUMBAR SPINE: IMPRESSION: Degenerative and postoperative change. No acute process. Electronically signed by: Minh Ricks M.D. 08/25/2017 10:58 AM Assessment 1. Lumbar postlaminectomy syndrome. 2. Chronic myofascial pain. 3. Medication issues. 4. Multiple comorbid medical conditions. 5. [ Recommendations 1. Patient metabolic evaluation with regards to chronic pain unremarkable today. 2. Recommend PT/OT and placement for caregiver management of her medications in and not supervised setting.
[2017-08-27] MEDS ORDERED: FUROSEMIDE INJ 20 MG in SYRINGE 0 ML IV ONE ×3 (11:00→20:45)
[2017-08-27] MEDS ORDERED: TRAMADOL HCL 50 MG TAB PO PRN (11:00)
--- NOTE | 2017-08-27 11:03 | Progress Note ---
Medicine Progress Note Date & Time of Visit: Aug 27, 2017 at 10:57. Subjective seen resting in bed, sleeping , easily rousable oriented x 3 states she feels about the same breathing is the same, has occasional cough has pain "all over" denies other symptoms Objective Last 8 Hrs Date Time Temp Pulse Resp B/P (MAP) Pulse Ox O2 Delivery O2 Flow Rate FiO2 08/27/17 08:00 Nasal Cannula 5.0 08/27/17 07:53 36.6 90 24 142/83 (102) 90 Nasal Cannula 4.0 08/27/17 07:23 98 22 92 Nasal Cannula 5.0 08/27/17 04:00 Nasal Cannula 4.0 Humidified Oxygen 08/27/17 03:45 36.9 75 24 137/87 (104) 90 Nasal Cannula 4.0 Physical Exam: General- oriented x 3, not in distress, speaks in sentences with no effort Eyes- anicteric Neck- no JVD Lungs-(+) mild wheeze bilaterally Heart- regular rhythm; no murmur, normal rate Abdomen- normal bowel sounds, soft, nontender, no masses Extremities- trace pretibial edema, no calf tenderness; peripheral pulses intact Neuro- alert, oriented x 3; no other gross focal neuro deficits Skin- warm & dry Laboratory Results: Last 24 Hours Test 08/26/17 11:06 08/26/17 16:18 08/26/17 20:11 08/27/17 06:02 Bedside Glucose 144 mg/dl 133 mg/dl 128 mg/dl Sodium Level 136 mmol/L Potassium Level 4.0 mmol/L Chloride Level 108 mmol/L Carbon Dioxide Level 21 mmol/L Anion Gap 7.0 mmol/L Blood Urea Nitrogen 13 mg/dl Creatinine 0.58 mg/dl Est Creatinine Clear Calc Drug Dose 104.2 ml/min Estimated GFR () 107.5 Estimated GFR (Non- 92.7 BUN/Creatinine Ratio 22.0 Random Glucose 152 mg/dl Calcium Level 10.1 mg/dl Assessment & Plan 72 year old female with history of CAD, DM, HTN, Gastric Bypass presenting with falls. ACUTE ON CHRONIC HYPOXIC RESPIRATORY FAILURE PNEUMONIA, LLL - possible HCAP - sputum culture: pending collection blood cultures: negative so far nasal MRSA swab negative - afebrile still on 5 litersNC (+) wheezes - Zosyn + Doxy day 2 repeat CXR today to r/o component of fluid overload Nebs ALTERED MENTAL STATUS, LIKELY DELIRIUM - likely secondary to polypharmacy (muscle relaxants, excessive OTC Benadryl intake as per family in particular) - CT head: no acute findings MRI Brain: Chronic Small Vessel changes - Neuro consulted - now only on Nortriptyline- being tapered off, Sertraline decrease Nortriptyline to 25mg - no confusion hallucinations overnight has poor short term memory per daughter, may have early dementia Neuro ff up CHRONIC PAIN SYNDROME chronic back pain status post surgery/hx myofascial pain syndrome as per records - consulted Pain Management - serologies ordered - Thoracic spine xray: possible midthoracic compression fracture Lumbar spine xray: degenerative joint disease - discussed with family, they are concerned about her pain control will re-start Tramadol 50mg q8h for severe pain, closely monitor mental status , in light of the fact that patient is now agreeable to Rehab/SNF upon discharge Tylenol PRN S/P FALLS - likely secondary to polypharmacy, deconditioning - PT/OT in progress - Left Rib anterior 6th Fracture: Incentive [place] - R elbow xray to r/o Fracture: negative - patient agreeable to go to rehab/snf CAD S/P STENT - continue on coreg, Imdur, losartan and plavix. HYPERTENSION - stable DM2 - on oral meds, well controlled as of recent outpatient HgA1c of 5.9 in May 2017. ISS in hospital. Ongoing tobacco abuse - counselling DVT PROPHYLAXIS Lovenox DISPOSITION lives alone at home PT/OT in progress patient agreeable with Rehab now discussed case at length with daughter Jessica all questions answered she is agreeable and comfortable with plan of care Current Inpatient Medications: Current Inpatient Medications Medications (Trade) Dose Ordered Sig/Tyron Route Start Time Stop Time Status Last Admin Dose Admin Enoxaparin Sodium (Lovenox Inj) 40 mg Q24H SC 08/22/17 06:00 09/21/17 05:59 08/27/17 06:04 40 MG Acetaminophen (Tylenol Tab) 650 mg Q4H PRN PO 08/22/17 00:45 09/21/17 00:44 08/25/17 14:28 650 MG Nitroglycerin (Nitrostat Tab) 0.4 mg UD PRN SL 08/22/17 00:45 09/21/17 00:44 Insulin Aspart (novoLOG ASPART) SLIDING SCALE If C... ACHS SC 08/22/17 07:00 09/21/17 06:59 08/22/17 08:51 1 UNITS Glucose (Glucose 40% Gel) 15-30 GRAMS 15 GRAMS... UD PRN PO 08/22/17 00:45 09/21/17 00:44 Glucose (Glucose Chew Tab) 4-8 Tablets 4 Tabl... UD PRN PO 08/22/17 00:45 09/21/17 00:44 Dextrose (Dextrose 50% 50ML Syringe) 25-50ML OF 50% DW IV FOR... UD PRN IV 08/22/17 00:45 09/21/17 00:44 Glucagon (Glucagon Inj) 1 mg UD PRN SQ 08/22/17 00:45 09/21/17 00:44 Clopidogrel Bisulfate (plAVix TAB) 75 mg DAILY PO 08/22/17 09:00 09/21/17 08:59 08/27/17 08:24 75 MG Isosorbide Mononitrate (Imdur Ext Rel Tab) 30 mg QAM PO 08/22/17 09:00 09/21/17 08:59 08/27/17 08:23 30 MG Levothyroxine Sodium (Synthroid Tab) 125 mcg DAILYBB PO 08/22/17 06:00 09/21/17 05:59 08/27/17 06:03 125 MCG Losartan Potassium (coZAAR TAB) 25 mg DAILY PO 08/22/17 09:00 09/21/17 08:59 08/27/17 08:23 25 MG Prochlorperazine Edisylate 5 mg/ Syringe 5 ml @ 5 mls/min Q6H PRN IV 08/22/17 00:45 09/21/17 00:44 Loratadine (Claritin Tab) 10 mg DAILY PRN PO 08/22/17 00:45 09/21/17 00:44 08/23/17 07:36 10 MG Sertraline HCl (Zoloft Tab) 200 mg DAILY PO 08/22/17 09:00 09/21/17 08:59 08/27/17 08:24 200 MG Nicotine (Nicoderm Cq 21MG Patch) 1 patch QAM TD 08/22/17 09:00 3/6/18 08:59 08/27/17 08:25 1 PATCH Miscellaneous (Remove Nicoderm Patch) 1 ea HS N/A 08/22/17 21:00 09/21/17 20:59 08/26/17 23:00 1 EA Carvedilol (Coreg Tab) 3.125 mg BID PO 08/22/17 21:00 09/21/17 08:59 08/27/17 08:24 3.125 MG Miscellaneous (Iv Fluids Completed) 1 ea PRN PRN N/A 08/22/17 04:00 08/22/18 03:59 Lidocaine (Lidoderm Patch 5%) 1 patch QAM TD 08/23/17 09:00 09/22/17 08:59 08/27/17 08:24 1 PATCH Miscellaneous (Remove Lidoderm Patch) 1 ea DAILY@21 N/A 08/22/17 21:00 09/21/17 20:59 08/26/17 23:00 1 EA Senna/Docusate Sodium (Senokot S Tab) 1 tab BID PO 08/23/17 21:00 09/22/17 20:59 08/27/17 08:23 1 TAB Nortriptyline HCl (Pamelor Cap) 50 mg HS PO 08/24/17 21:00 09/21/17 20:59 08/26/17 20:08 50 MG Miconazole Nitrate (Desenex Powder) 1 appln PRN PRN EXT 08/25/17 05:30 09/24/17 05:29 08/26/17 06:02 1 APPLN Albuterol/ Ipratropium (Duoneb) 3 ml QIDR INH 08/26/17 08:00 09/25/17 07:59 08/27/17 07:23 3 ML Miscellaneous Information (Consult) 1 ea UD PRN N/A 08/25/17 22:30 09/24/17 22:29 Piperacillin Sod/ Tazobactam Sod 4.5 gm/Dextrose 120 ml @ 30 mls/hr Q8H IV 08/26/17 04:00 09/02/17 03:59 08/27/17 04:39 30 MLS/HR Doxycycline Hyclate 100 mg/ Dextrose 110 ml @ 50 mls/hr BID IV 08/26/17 09:00 09/02/17 08:59 08/27/17 08:34 50 MLS/HR Tramadol HCl (Ultram Tab) 50 mg Q8H PRN PO 08/27/17 11:00 09/26/17 10:59 UNV
--- NOTE | 2017-08-27 11:27 | DIAGNOSTIC IMAGING REPORT ---
SINGLE VIEW CHEST CLINICAL HISTORY: Pulmonary edema. FINDINGS: An AP, portable, upright chest radiograph is compared to study dated 08/25/2017. The examination is severely degraded by portable technique and patient rotation. The heart is enlarged and there is atherosclerotic calcification of the thoracic aorta. There is pulmonary vascular congestion with evidence of interstitial edema. Small pleural effusions are noted. No pneumothorax is seen. The skeletal structures are osteopenic. The bony thorax is grossly intact. IMPRESSION: 1. Cardiomegaly with evidence of congestive failure and interstitial edema. This has modestly worsened from 08/25/2017. 2. Small pleural effusions. 3. Correlate clinically for the superimposed pneumonia. Electronically signed by: Wilber Quiroz M.D. 08/27/2017 11:26 AM Dictated Date/Time: 08/27/2017 11:24 AM
[2017-08-27] MEDS: ACETAMINOPHEN 325 MG TAB PO PRN (11:48)
--- NOTE | 2017-08-27 17:26 | PROGRESS NOTE ---
DATE: 08/27/2017 I saw Emy today. Her MRI has been broken down into 3 separate procedures because of her inability to lay flat due to her pulmonary problems and her lumbar MRI shows multilevel degenerative disc disease, but nothing at the tip of the conus that would explain a leg weakness or any clear significant nerve root impingement. She does have on exam what appears to be an extensor toe sign on the left and equivocal one on the right and I am not sure what we found on the MRI of the brain that explains this very well. She really needs to have a cervical and thoracic imaging study be sure there is not an asymmetric compressive myelopathy at a level higher than the lumbar spine and hopefully some imaging will be done today and then again some tomorrow. She probably also has a polyneuropathy and has had a series of falls, likely related to her underlying peripheral neuropathy issues coupled with multiple medication use, so there are a number of factors here that probably do not indicate a significant central nervous system problem, but I think in light of the extensor toe sign we are obligated to do the imaging and make sure there is nothing significant that might need surgical intervention in the future. I will check back with her tomorrow. SHERRY
[2017-08-27] MEDS: HYDROCODONE/ACETAMIN 5/325MG TAB PO PRN (19:45)
[2017-08-27] MEDS: NORTRIPTYLINE HCL 25 MG CAP PO SCH (21:43)
[2017-08-28] VITALS (12 sets, daily range): BP systolic 95–132; BP diastolic 51–72; PULSE 49–110; TEMP 36.7–37.3; O2SAT 86–92
[2017-08-28] MEDS: PIPERACILL/TAZOBAC IV 4.5 GM in DEXTROSE 5% 100ML IV SCH ×3 (04:21→19:51)
[2017-08-28] MEDS: LEVOTHYROXINE 125 MCG TAB PO SCH (06:00)
[2017-08-28] MEDS: ENOXAPARIN 40 MG/0.4 ML SYR SC SCH (06:00)
[2017-08-28 06:02] LABS: BASO % 0.1 %; BASO ABS # 0.01 K/uL (0-0.2); EOS ABS # 0.07 K/uL (0-0.5); HEMATOCRIT 31.5 % (37-47); HEMOGLOBIN 10.2 g/dL (12.0-16.0); IG# 0.07 K/uL (0.00-0.02); LYMPH % 11.5 %; LYMPH ABS # 0.84 K/uL (1.2-3.4); MEAN CELL VOLUME 99.1 fL (80-100); MEAN CORPUSCULAR HEMOGLOBIN 32.1 pg (25-34); MEAN CORPUSCULAR HGB CONC 32.4 g/dl (32-36); MEAN PLATELET VOLUME 10.2 fL (7.4-10.4); MONO % 11.5 %; MONO ABS # 0.84 K/uL (0.11-0.59); NEUT % 74.9 %; NEUT ABS # 5.48 K/uL (1.4-6.5); PLATELET COUNT 176 K/uL (130-400); RED CELL DISTRIBUTION WIDTH CV 13.4 % (11.5-14.5); WHITE BLOOD COUNT 7.31 K/uL (4.8-10.8)
[2017-08-28 06:43] LABS: CALCIUM 9.9 mg/dl (8.5-10.1); CREATININE 0.76 mg/dl (0.60-1.20); POTASSIUM 3.4 mmol/L (3.5-5.1)
[2017-08-28] MEDS: ALBUT/IPRATROP 3MG/0.5MG NEB 3 ML VIAL INH SCH ×4 (07:08→19:20)
[2017-08-28] MEDS ORDERED: POTASSIUM CHLORIDE 10 MEQ TABCR PO STA (08:04)
[2017-08-28] MEDS: DOCUSATE SODIUM/SENNA 50/8.6MG TAB PO SCH ×2 (08:13→21:58)
[2017-08-28] MEDS: CLOPIDOGREL BISULFATE 75 MG TAB PO SCH (08:14)
[2017-08-28] MEDS: SERTRALINE HCL 100 MG TAB PO SCH (08:14)
[2017-08-28] MEDS: ISOSORBIDE MONONITRATE 30 MG TABCR PO SCH (08:14)
[2017-08-28] MEDS: LOSARTAN POTASSIUM 25 MG TAB PO SCH (08:15)
[2017-08-28] MEDS: CARVEDILOL 3.125 MG TAB PO SCH ×2 (08:15→21:57)
[2017-08-28] MEDS: NICOTINE 21 MG/24 HR TDSY TD SCH (08:16)
[2017-08-28] MEDS: LIDODERM (LIDOCAINE) PATCH 5% TD SCH (08:16)
[2017-08-28] MEDS: INSULIN ASPART 100 UNITS/ML 3 ML PEN SC SCH ×4 (08:17→22:00)
[2017-08-28] MEDS: DOXYCYCLINE IV 100 MG in DEXTROSE 5% 100ML 100 ML IV SCH ×2 (08:19→21:56)
[2017-08-28] MEDS: HYDROCODONE/ACETAMIN 5/325MG TAB PO PRN (10:01)
[2017-08-28] MEDS ORDERED: FUROSEMIDE INJ 40 MG in SYRINGE 0 ML IV SCH (12:00)
--- NOTE | 2017-08-28 12:04 | DIAGNOSTIC IMAGING REPORT ---
THORACIC SPINE WITHOUT CLINICAL HISTORY: 72 years-old Female presenting with sudden onset of LE weakness unable to ambulate. TECHNIQUE: Multisequence, multiplanar MR imaging of the thoracic spine was performed without the use of intravenous contrast. IV contrast: None. COMPARISON: Plain radiographs of the thoracic spine from 08/25/2017. FINDINGS: Localizer images: Unremarkable. Bilateral transpedicular screw and lars fixation of L2-S1. Associated laminectomy defects and postsurgical changes in the posterior lumbar region. No significant thoracic scoliosis. Normal thoracic kyphosis. Minimal anterior vertebral body height loss of T7 (less than 20%). No evidence of bony edema at this site to suggest an acute compression deformity. Bony edema is suggested in the L1 vertebral body as well as the endplates at T10-11 and T12-L1 likely on a degenerative basis. Endplate edema also noted at T2. No abnormal fluid signal intensity within the intervertebral discs. Mild desiccation noted diffusely. Multilevel degenerative changes with a focal disc osteophyte complex at T7-8. This results in effacement of the right paracentral thecal sac and right lateral recess at this level. Resultant contouring of the spinal cord noted. No abnormal signal intensity of the cord at the site. Disc osteophyte complexes also noted more inferiorly T9-10 through T12-L1 with similar degrees of effacement of the anterior thecal sac though no spinal cord contouring is evident. Neural foraminal narrowing noted at T10-11 greater on the left. Remaining thoracic spinal cord normal in morphology. The spinal cord ends in good position at L1. Extensive subcutaneous edema noted in the lumbar spine. Paraspinal soft tissues of the thoracic spine within normal limits. Moderate right and small left pleural effusions. IMPRESSION: 1. Focal disc osteophyte complex at T7-8 with effacement of the right paracentral thecal sac and right lateral recess at this level. Resultant contouring of the spinal cord. No convincing evidence of spinal cord impingement or spinal cord edema. 2. Multilevel degenerative further detailed above. 3. Neural foraminal narrowing at T10-11. 4. Moderate right and small left pleural effusions. 5. Posterior lumbar fusion hardware. 6. Bony edema at the endplates at several levels as above and L1 likely on a degenerative basis. Electronically signed by: Elliot Madrid M.D. 08/28/2017 12:02 PM Dictated Date/Time: 08/28/2017 11:52 AM
--- NOTE | 2017-08-28 12:15 | DIAGNOSTIC IMAGING REPORT ---
CERVICAL WITHOUT CONTRAST CLINICAL HISTORY: 72 years-old Female presenting with sudden onset of LE weakness unable to ambulate. TECHNIQUE: Multisequence, multiplanar MR imaging of the cervical spine was performed without the use of intravenous contrast. IV contrast: None. COMPARISON: CT from 08/21/2017. FINDINGS: Localizer images: Unremarkable. In correlating with the findings on thoracic spine MR with the recent CT, bony edema in the T2 vertebral body evident on thoracic spine MR is felt to more likely relate to acute osseous injury. Less than 25% anterior vertebral body height loss. Normal cervical lordosis. Vertebral bodies maintain normal height and alignment. Bony edema noted at the endplates of C3-4 and C5-6. Diffuse intervertebral disc desiccation. No fluid signal within the intervertebral discs. Disc height loss noted at several levels most severe at C4-5 and C5-6. Disc osteophyte complexes noted from C3-4 through C6-7 with varying degrees of spinal canal narrowing. Image quality of multiple sequences is degraded by motion artifact limiting diagnostic sensitivity. Allowing for this, degenerative changes further detailed below: C2-3: No significant neural foraminal or spinal canal narrowing. C3-4: Disc osteophyte complex and uncovertebral hypertrophy in combination with ligamentum flavum thickening result in near complete effacement of CSF and flattening of the spinal cord. Moderate right and mild left neural foraminal narrowing. C4-5: Disc osteophyte complex and uncovertebral hypertrophy combination with ligamentum flavum hypertrophy result in complete effacement of CSF and flattening of the spinal cord. Severe right and moderate left neural foraminal narrowing. C5-6: Small disc osteophyte complex mildly effaces the anterior thecal sac. Mild bilateral neural foraminal narrowing secondary to uncovertebral hypertrophy. C6-7: Disc osteophyte complex and uncovertebral hypertrophy result in near complete effacement of CSF and contouring of the spinal cord. Moderate right and mild left neural foraminal narrowing. C7-T1: Disc osteophyte complex with mild effacement of the ventral thecal sac. Mild bilateral neural foraminal narrowing. Paraspinal soft tissues within normal limits. Cervical spinal cord contouring and flattening as above. No abnormal spinal cord signal intensity. Craniocervical junction normal. IMPRESSION: 1. In retrospect, the MR of the thoracic spine performed today in combination with the findings on cervical spine CT from 08/21/2017 are consistent with acute mild compression deformity of T2 (less than 25% anterior vertebral body height loss). 2. Multilevel degenerative changes in the cervical spine with multilevel spinal canal stenosis. Spinal cord impingement may be present. Stenosis is most severe at C4-5, further detailed above. 3. Varying degrees of neural foraminal narrowing most severe at C4-5. 4. Bony edema at the endplates of C3-4 and C5-6, likely on a degenerative basis. The report will be called/faxed according to standard departmental protocol. Electronically signed by: Elliot Madrid M.D. 08/28/2017 12:14 PM Dictated Date/Time: 08/28/2017 12:06 PM
--- NOTE | 2017-08-28 12:51 | PROGRESS NOTE ---
DATE: 08/28/2017 SUBJECTIVE: Emy unfortunately is in the MRI, finally getting her thoracic and cervical spine series. I did not have a chance to see her today. I will check back tomorrow once the studies are done and reports are on the chart and I will look at the images probably by computer tonight. Addendum images show compromise of the cervical cord at C4-C7 as per the report I will review images a bit further tonight and likely have ortho spine consulted but I am not sure she would be an operative candidate based on her marginal pulmonary function Medicine will obviously have evaluate her for this if spine surgeons would consider a procedure Bran POWELL
[2017-08-28] MEDS ORDERED: BOOST GLUCOSE CONTROL PO SCH (14:00)
[2017-08-28] MEDS ORDERED: NURSING VERBAL MED ORDER ONE (17:30)
--- NOTE | 2017-08-28 19:25 | Progress Note ---
Medicine Progress Note Date & Time of Visit: Aug 28, 2017 at 12:39. Subjective seen resting in bed, comfortable states she feels about the same as yesterday appears more comfortable today though breathing and cough improving still has pain mostly in lower back, neck- somewhat improving denies weakness/numbess of arms and legs, denies paresthesias was confused overnight as per daughter Jessica no other symptoms Objective Last 8 Hrs Date Time Temp Pulse Resp B/P (MAP) Pulse Ox O2 Delivery O2 Flow Rate FiO2 08/28/17 12:07 92 Room Air 5.0 08/28/17 08:00 90 Room Air 5.0 08/28/17 07:47 36.9 53 22 110/66 (81) 90 Room Air 08/28/17 07:08 81 22 90 Nasal Cannula 5.0 Physical Exam: General- oriented x 3, not in distress, speaks in sentences with no effort Neck- no JVD Lungs- mild rales at the bases, occasional faint wheeze Heart- regular rhythm; no murmur, normal rate Abdomen- normal bowel sounds, soft, nontender, no masses Extremities- trace pretibial edema, no calf tenderness; peripheral pulses intact Neuro- alert, oriented x 3; no other gross focal neuro deficits UE 5/5, sensation 100% LE 4/5, sensation 100% Skin- warm & dry Laboratory Results: Last 24 Hours Test 08/27/17 16:11 08/27/17 20:09 08/28/17 05:31 08/28/17 06:50 Bedside Glucose 144 mg/dl 129 mg/dl 154 mg/dl White Blood Count 7.31 K/uL Red Blood Count 3.18 M/uL Hemoglobin 10.2 g/dL Hematocrit 31.5 % Mean Corpuscular Volume 99.1 fL Mean Corpuscular Hemoglobin 32.1 pg Mean Corpuscular Hemoglobin Concent 32.4 g/dl Platelet Count 176 K/uL Mean Platelet Volume 10.2 fL Neutrophils (%) (Auto) 74.9 % Lymphocytes (%) (Auto) 11.5 % Monocytes (%) (Auto) 11.5 % Eosinophils (%) (Auto) 1.0 % Basophils (%) (Auto) 0.1 % Neutrophils # (Auto) 5.48 K/uL Lymphocytes # (Auto) 0.84 K/uL Monocytes # (Auto) 0.84 K/uL Eosinophils # (Auto) 0.07 K/uL Basophils # (Auto) 0.01 K/uL RDW Standard Deviation 49.0 fL RDW Coefficient of Variation 13.4 % Immature Granulocyte % (Auto) 1.0 % Immature Granulocyte # (Auto) 0.07 K/uL Sodium Level 138 mmol/L Potassium Level 3.4 mmol/L Chloride Level 107 mmol/L Carbon Dioxide Level 25 mmol/L Anion Gap 6.0 mmol/L Blood Urea Nitrogen 11 mg/dl Creatinine 0.76 mg/dl Est Creatinine Clear Calc Drug Dose 79.0 ml/min Estimated GFR () 91.5 Estimated GFR (Non- 78.9 BUN/Creatinine Ratio 14.9 Random Glucose 158 mg/dl Calcium Level 9.9 mg/dl Test 08/28/17 12:15 Bedside Glucose 128 mg/dl Assessment & Plan 72 year old female with history of CAD, DM, HTN, Gastric Bypass presenting with falls. ACUTE ON CHRONIC HYPOXIC RESPIRATORY FAILURE PNEUMONIA, LLL - possible HCAP - sputum culture: pending collection blood cultures: negative so far nasal MRSA swab negative - afebrile still on 5 litersNC (+) wheezing improving - Zosyn + Doxy day 3 Lasix 40 mg IV in AM, 20mg IV at pm Nebs monitor ALTERED MENTAL STATUS, LIKELY DELIRIUM - likely secondary to polypharmacy (muscle relaxants, excessive OTC Benadryl intake as per family in particular) - CT head: no acute findings MRI Brain: Chronic Small Vessel changes - Neuro consulted - now only on Nortriptyline- being tapered off, Sertraline decrease Nortriptyline to 25mg - has poor short term memory per daughter, may have early dementia Neuro ff up CHRONIC PAIN SYNDROME chronic back pain status post surgery/hx myofascial pain syndrome as per records - consulted Pain Management - serologies ordered - Thoracic spine xray: possible midthoracic compression fracture Lumbar spine xray: degenerative joint disease - discussed with family, they are concerned about her pain control discussed with Dr. Hidalgo, may resume Hydrocodone as long as patient is admitted/in Rehab/SNF - Cervical/Thoracic/Lumbar Spine MRI noted: (+) compression Fx (+) cervical spine stenosis - no neurologic deficit noted add Prednisone for pain control avoiding Gabapentin for high risk of alteration in mental status - Ortho Spine consulted S/P FALLS - likely secondary to polypharmacy, deconditioning - PT/OT in progress - Left Rib anterior 6th Fracture: Incentive [place] - R elbow Xray to r/o Fracture: negative - patient agreeable to go to rehab/snf CAD S/P STENT - continue on coreg, Imdur, losartan and plavix. HYPERTENSION - stable DM2 - on oral meds, well controlled as of recent outpatient HgA1c of 5.9 in May 2017. ISS in hospital. Ongoing tobacco abuse - counselling DVT PROPHYLAXIS Lovenox DISPOSITION lives alone at home PT/OT in progress patient agreeable with Rehab now discussed case at length with daughter Jessica all questions answered she is agreeable and comfortable with plan of care Current Inpatient Medications: Current Inpatient Medications Medications (Trade) Dose Ordered Sig/Tyron Route Start Time Stop Time Status Last Admin Dose Admin Enoxaparin Sodium (Lovenox Inj) 40 mg Q24H SC 08/22/17 06:00 09/21/17 05:59 08/28/17 06:00 40 MG Acetaminophen (Tylenol Tab) 650 mg Q4H PRN PO 08/22/17 00:45 09/21/17 00:44 08/27/17 11:48 650 MG Nitroglycerin (Nitrostat Tab) 0.4 mg UD PRN SL 08/22/17 00:45 09/21/17 00:44 Insulin Aspart (novoLOG ASPART) SLIDING SCALE If C... ACHS SC 08/22/17 07:00 09/21/17 06:59 08/22/17 08:51 1 UNITS Glucose (Glucose 40% Gel) 15-30 GRAMS 15 GRAMS... UD PRN PO 08/22/17 00:45 09/21/17 00:44 Glucose (Glucose Chew Tab) 4-8 Tablets 4 Tabl... UD PRN PO 08/22/17 00:45 09/21/17 00:44 Dextrose (Dextrose 50% 50ML Syringe) 25-50ML OF 50% DW IV FOR... UD PRN IV 08/22/17 00:45 09/21/17 00:44 Glucagon (Glucagon Inj) 1 mg UD PRN SQ 08/22/17 00:45 09/21/17 00:44 Clopidogrel Bisulfate (plAVix TAB) 75 mg DAILY PO 08/22/17 09:00 09/21/17 08:59 08/28/17 08:14 75 MG Isosorbide Mononitrate (Imdur Ext Rel Tab) 30 mg QAM PO 08/22/17 09:00 09/21/17 08:59 08/28/17 08:14 30 MG Levothyroxine Sodium (Synthroid Tab) 125 mcg DAILYBB PO 08/22/17 06:00 09/21/17 05:59 08/28/17 06:00 125 MCG Losartan Potassium (coZAAR TAB) 25 mg DAILY PO 08/22/17 09:00 09/21/17 08:59 08/28/17 08:15 25 MG Prochlorperazine Edisylate 5 mg/ Syringe 5 ml @ 5 mls/min Q6H PRN IV 08/22/17 00:45 09/21/17 00:44 Loratadine (Claritin Tab) 10 mg DAILY PRN PO 08/22/17 00:45 09/21/17 00:44 08/23/17 07:36 10 MG Sertraline HCl (Zoloft Tab) 200 mg DAILY PO 08/22/17 09:00 09/21/17 08:59 08/28/17 08:14 200 MG Nicotine (Nicoderm Cq 21MG Patch) 1 patch QAM TD 08/22/17 09:00 09/21/17 08:59 08/28/17 08:16 1 PATCH Miscellaneous (Remove Nicoderm Patch) 1 ea HS N/A 08/22/17 21:00 09/21/17 20:59 08/27/17 21:00 1 EA Carvedilol (Coreg Tab) 3.125 mg BID PO 08/22/17 21:00 09/21/17 08:59 08/28/17 08:15 3.125 MG Miscellaneous (Iv Fluids Completed) 1 ea PRN PRN N/A 08/22/17 04:00 08/22/18 03:59 Lidocaine (Lidoderm Patch 5%) 1 patch QAM TD 08/23/17 09:00 09/22/17 08:59 08/28/17 08:16 1 PATCH Miscellaneous (Remove Lidoderm Patch) 1 ea DAILY@21 N/A 08/22/17 21:00 09/21/17 20:59 08/27/17 21:00 1 EA Senna/Docusate Sodium (Senokot S Tab) 1 tab BID PO 08/23/17 21:00 09/22/17 20:59 08/28/17 08:13 1 TAB Nortriptyline HCl (Pamelor Cap) 50 mg HS PO 08/24/17 21:00 09/21/17 20:59 08/27/17 21:43 50 MG Miconazole Nitrate (Desenex Powder) 1 appln PRN PRN EXT 08/25/17 05:30 09/24/17 05:29 08/26/17 06:02 1 APPLN Albuterol/ Ipratropium (Duoneb) 3 ml QIDR INH 08/26/17 08:00 09/25/17 07:59 08/28/17 07:08 3 ML Miscellaneous Information (Consult) 1 ea UD PRN N/A 08/25/17 22:30 09/24/17 22:29 Piperacillin Sod/ Tazobactam Sod 4.5 gm/Dextrose 120 ml @ 30 mls/hr Q8H IV 08/26/17 04:00 09/02/17 03:59 08/28/17 12:34 30 MLS/HR Doxycycline Hyclate 100 mg/ Dextrose 110 ml @ 50 mls/hr BID IV 08/26/17 09:00 09/02/17 08:59 08/28/17 08:19 50 MLS/HR Acetaminophen/ Hydrocodone Bitart ([place] 5/325 Tab) 1 tab Q12H PRN PO 08/27/17 12:15 09/10/17 12:14 08/28/17 10:01 1 TAB Furosemide 40 mg/ Syringe 4 ml @ 4 mls/min BID17 IV 08/28/17 12:00 09/27/17 11:59 08/28/17 12:37 4 MLS/MIN Potassium Chloride (Klor-Con Tab) 40 meq BID PO 08/28/17 21:00 09/27/17 20:59
[2017-08-28] MEDS: BOOST GLUCOSE CONTROL PO SCH (19:52)
[2017-08-28] MEDS ORDERED: FUROSEMIDE INJ 20 MG in SYRINGE 0 ML IV SCH (20:00)
[2017-08-28] MEDS: POTASSIUM CHLORIDE 20 MEQ TABCR PO SCH (21:56)
[2017-08-28] MEDS: NORTRIPTYLINE HCL 25 MG CAP PO SCH (21:56)
[2017-08-29] VITALS (9 sets, daily range): BP systolic 122–137; BP diastolic 76–81; PULSE 88–93; TEMP 36.4–37.1; O2SAT 86–92
[2017-08-29] MEDS: PIPERACILL/TAZOBAC IV 4.5 GM in DEXTROSE 5% 100ML IV SCH ×2 (04:14→12:04)
[2017-08-29] MEDS: LEVOTHYROXINE 125 MCG TAB PO SCH (06:23)
[2017-08-29] MEDS: ENOXAPARIN 40 MG/0.4 ML SYR SC SCH (06:24)
[2017-08-29] MEDS: ALBUT/IPRATROP 3MG/0.5MG NEB 3 ML VIAL INH SCH ×4 (07:06→20:00)
[2017-08-29 07:31] LABS: CALCIUM 10.5 mg/dl (8.5-10.1); CREATININE 0.69 mg/dl (0.60-1.20)
[2017-08-29] MEDS: INSULIN ASPART 100 UNITS/ML 3 ML PEN SC SCH ×4 (07:55→21:01)
[2017-08-29] MEDS: CARVEDILOL 3.125 MG TAB PO SCH ×2 (08:02→20:43)
[2017-08-29] MEDS: LORATADINE 10 MG TAB PO PRN (08:02)
[2017-08-29] MEDS: DOCUSATE SODIUM/SENNA 50/8.6MG TAB PO SCH ×2 (08:03→20:45)
[2017-08-29] MEDS: POTASSIUM CHLORIDE 20 MEQ TABCR PO SCH ×2 (08:03→20:44)
[2017-08-29] MEDS: CLOPIDOGREL BISULFATE 75 MG TAB PO SCH (08:04)
[2017-08-29] MEDS: SERTRALINE HCL 100 MG TAB PO SCH (08:04)
[2017-08-29] MEDS: ISOSORBIDE MONONITRATE 30 MG TABCR PO SCH (08:04)
[2017-08-29] MEDS: NICOTINE 21 MG/24 HR TDSY TD SCH (08:05)
[2017-08-29] MEDS: LIDODERM (LIDOCAINE) PATCH 5% TD SCH (08:05)
[2017-08-29] MEDS: LOSARTAN POTASSIUM 25 MG TAB PO SCH (08:05)
--- NOTE | 2017-08-29 08:10 | Orthopedic Consultation ---
Orthopedic Consultation Date of Consultation: Aug 29, 2017. Attending Physician: Nicolas Maradiaga MD Reason for Consultation: Neck and lower back pain History of Present Illness Patient is a pleasant 72-year-old female has a history segment 4 and L2-S1 decompression and fusion in 2012. She was admitted to the hospital due to hypoxia difficulties with ambulation and possible concussion. While here at the hospital she has had increased pain in the neck middle and lower back. She has continued to progress very slowly stop and may be some of her issues were from her spine. MRIs have been performed the cervical, thoracic, and lumbar spine. Interviewing the patient she knows that she has had pain in her neck for a number of years as well as the middle and lower back. It was worse earlier in the week but this point seems to be at its baseline. She has not noticed any significant weakness in her arms or numbness and tingling. She does note that her balance is off but does not feel any different to her than normal. She denies any other numbness, tingling, or paresthesias. Past Medical/Surgical History Medical Problems: (1) Acute head injury Status: Acute (2) Frequent falls Status: Acute (3) Generalized pain Status: Acute (4) Generalized weakness Status: Acute (5) Left rib fracture Status: Acute Family History Patient reports no known family medical history. Social History Smoking Status: Current Every Day Smoker Smokeless Tobacco Use: Unknown Alcohol Use: none Marital Status: Housing Status: lives alone Occupation Status: retired, disabled Allergies Coded Allergies: Adhesives (Verified Allergy, Severe, HIVES, 11/20/13) Aspirin (Verified Allergy, Intermediate, HIVES, 11/20/13) NSAIDs (Verified Allergy, Intermediate, HIVES, 11/20/13) Home Medications Scheduled Atorvastatin (Lipitor), 80 MG PO DAILY Carvedilol (Coreg), 3.125 MG PO BID Clopidogrel (Plavix), 75 MG PO DAILY Cyanocobalamin (Vitamin B12), 1,000 MCG IM MONTHLY Ergocalciferol (Vitamin D 86412 Unit), 50,000 UNIT PO 2XWK Furosemide (Lasix), 80 MG PO QAM Furosemide (Lasix), 40 MG PO QPM Isosorbide Mononitrate Ext Rel (Imdur Ext Rel), 1 TAB PO QAM Levothyroxine Sodium (Levothyroxine Sodium), 1 TAB PO DAILY Losartan Potassium (Cozaar), 25 MG PO DAILY Metformin Hcl (Glucophage), 500 MG PO BID Nitroglycerin (Nitrostat), 0.4 MG UT PRN Nortriptyline (Pamelor), 75 MG PO HS Sertraline (Zoloft), 200 MG PO DAILY Scheduled PRN Acetaminophen (Tylenol), 1,000 MG PO Q8 PRN for Pain Albuterol Hfa (Ventolin Hfa), 2-4 PUFFS INH Q6H PRN for Shortness of Breath Diphenhydramine Hcl (Benadryl Allergy), 1 CAP PO HS PRN for Itching Current Inpatient Medications Current Inpatient Medications Medications (Trade) Dose Ordered Sig/Tyron Route Start Time Stop Time Status Last Admin Dose Admin Enoxaparin Sodium (Lovenox Inj) 40 mg Q24H SC 08/22/17 06:00 09/21/17 05:59 08/29/17 06:24 40 MG Acetaminophen (Tylenol Tab) 650 mg Q4H PRN PO 08/22/17 00:45 09/21/17 00:44 08/27/17 11:48 650 MG Nitroglycerin (Nitrostat Tab) 0.4 mg UD PRN SL 08/22/17 00:45 09/21/17 00:44 Insulin Aspart (novoLOG ASPART) SLIDING SCALE If C... ACHS SC 08/22/17 07:00 09/21/17 06:59 08/28/17 22:00 2 UNITS Glucose (Glucose 40% Gel) 15-30 GRAMS 15 GRAMS... UD PRN PO 08/22/17 00:45 09/21/17 00:44 Glucose (Glucose Chew Tab) 4-8 Tablets 4 Tabl... UD PRN PO 08/22/17 00:45 09/21/17 00:44 Dextrose (Dextrose 50% 50ML Syringe) 25-50ML OF 50% DW IV FOR... UD PRN IV 08/22/17 00:45 09/21/17 00:44 Glucagon (Glucagon Inj) 1 mg UD PRN SQ 08/22/17 00:45 09/21/17 00:44 Clopidogrel Bisulfate (plAVix TAB) 75 mg DAILY PO 08/22/17 09:00 09/21/17 08:59 08/28/17 08:14 75 MG Isosorbide Mononitrate (Imdur Ext Rel Tab) 30 mg QAM PO 08/22/17 09:00 09/21/17 08:59 08/28/17 08:14 30 MG Levothyroxine Sodium (Synthroid Tab) 125 mcg DAILYBB PO 08/22/17 06:00 09/21/17 05:59 08/29/17 06:23 125 MCG Losartan Potassium (coZAAR TAB) 25 mg DAILY PO 08/22/17 09:00 09/21/17 08:59 08/28/17 08:15 25 MG Prochlorperazine Edisylate 5 mg/ Syringe 5 ml @ 5 mls/min Q6H PRN IV 08/22/17 00:45 09/21/17 00:44 Loratadine (Claritin Tab) 10 mg DAILY PRN PO 08/22/17 00:45 09/21/17 00:44 08/23/17 07:36 10 MG Sertraline HCl (Zoloft Tab) 200 mg DAILY PO 08/22/17 09:00 09/21/17 08:59 08/28/17 08:14 200 MG Nicotine (Nicoderm Cq 21MG Patch) 1 patch QAM TD 08/22/17 09:00 09/21/17 08:59 08/28/17 08:16 1 PATCH Miscellaneous (Remove Nicoderm Patch) 1 ea HS N/A 08/22/17 21:00 09/21/17 20:59 08/28/17 21:00 1 EA Carvedilol (Coreg Tab) 3.125 mg BID PO 08/22/17 21:00 09/21/17 08:59 08/28/17 21:57 3.125 MG Miscellaneous (Iv Fluids Completed) 1 ea PRN PRN N/A 08/22/17 04:00 08/22/18 03:59 Lidocaine (Lidoderm Patch 5%) 1 patch QAM TD 08/23/17 09:00 09/22/17 08:59 08/28/17 08:16 1 PATCH Miscellaneous (Remove Lidoderm Patch) 1 ea DAILY@21 N/A 08/22/17 21:00 09/21/17 20:59 08/28/17 21:00 1 EA Senna/Docusate Sodium (Senokot S Tab) 1 tab BID PO 08/23/17 21:00 09/22/17 20:59 08/28/17 21:58 1 TAB Miconazole Nitrate (Desenex Powder) 1 appln PRN PRN EXT 08/25/17 05:30 09/24/17 05:29 08/26/17 06:02 1 APPLN Albuterol/ Ipratropium (Duoneb) 3 ml QIDR INH 08/26/17 08:00 09/25/17 07:59 08/29/17 07:06 3 ML Miscellaneous Information (Consult) 1 ea UD PRN N/A 08/25/17 22:30 09/24/17 22:29 Piperacillin Sod/ Tazobactam Sod 4.5 gm/Dextrose 120 ml @ 30 mls/hr Q8H IV 08/26/17 04:00 09/02/17 03:59 08/29/17 04:14 30 MLS/HR Doxycycline Hyclate 100 mg/ Dextrose 110 ml @ 50 mls/hr BID IV 08/26/17 09:00 09/02/17 08:59 08/28/17 21:56 50 MLS/HR Acetaminophen/ Hydrocodone Bitart ([place] 5/325 Tab) 1 tab Q12H PRN PO 08/27/17 12:15 09/10/17 12:14 08/28/17 10:01 1 TAB Potassium Chloride (Klor-Con Tab) 40 meq BID PO 08/28/17 21:00 09/27/17 20:59 08/28/17 21:56 40 MEQ Furosemide 40 mg/ Syringe 4 ml @ 4 mls/min DAILY IV 08/29/17 09:00 09/27/17 11:59 Nortriptyline HCl (Pamelor Cap) 25 mg HS PO 08/28/17 21:00 09/21/17 20:59 08/28/17 21:56 25 MG Furosemide 20 mg/ Syringe 2 ml @ 4 mls/min 2000 IV 08/28/17 20:00 09/27/17 19:59 08/28/17 19:43 4 MLS/MIN Prednisone (PredniSONE TAB) 40 mg DAILY PO 08/29/17 09:00 09/28/17 08:59 Enteral Nutritional Formula (Boost Glucose Control) 1 can TID PO 08/28/17 21:00 08/30/17 09:01 08/28/17 19:52 1 CAN Physical Exam Date Time Temp Pulse Resp B/P (MAP) Pulse Ox O2 Delivery O2 Flow Rate FiO2 08/29/17 07:25 36.4 91 22 137/81 (99) 90 6.0 08/29/17 07:06 88 22 90 Nasal Cannula 6.0 08/29/17 04:00 Nasal Cannula 4.0 Humidified Oxygen 08/29/17 03:23 36.8 91 23 127/79 (95) 90 Nasal Cannula 6.0 08/29/17 00:01 Nasal Cannula 4.0 Humidified Oxygen 08/28/17 23:30 36.8 55 18 110/71 (84) 89 Nasal Cannula 08/28/17 20:51 36.8 71 18 132/72 (92) 86 Nasal Cannula 5.0 08/28/17 20:00 Nasal Cannula 4.0 Humidified Oxygen 08/28/17 19:20 110 24 91 Nasal Cannula 6.0 08/28/17 16:00 88 Room Air 5.0 08/28/17 15:58 36.7 58 22 100/66 (77) 86 Nasal Cannula 5.0 Humidified Oxygen 08/28/17 14:57 70 22 90 Nasal Cannula 5.0 08/28/17 12:07 92 Room Air 5.0 08/28/17 11:35 36.7 49 22 95/51 (66) 88 Nasal Cannula 5.0 08/28/17 08:00 90 Room Air 5.0 On exam the patient is alert and oriented. She is answering questions appropriately. She moves all extremities to gravity without much difficulty. She has strong initial impulses but developed strength of 4+ out of 5 in the biceps deltoid and triceps bilaterally secondary to discomfort. She is nontender along the cervical or thoracic spine. She has negative Tinel's, Pura's, Phalen signs. She is hyporeflexive in the brachioradialis and tricept. Sensations intact in the fingers and toes. Her abdomen soft nontender calves are supple and nontender. Her gait was not observed. She is nontender in the neck itself she has negative Spurling's test bilaterally. No Lhermitte's phenomenon noted. Laboratory Results Last 24 Hours Test 08/28/17 12:15 08/28/17 16:31 08/28/17 20:38 08/29/17 05:45 Bedside Glucose 128 mg/dl 145 mg/dl 209 mg/dl Sodium Level 138 mmol/L Potassium Level 4.0 mmol/L Chloride Level 107 mmol/L Carbon Dioxide Level 23 mmol/L Anion Gap 8.0 mmol/L Blood Urea Nitrogen 16 mg/dl Creatinine 0.69 mg/dl Est Creatinine Clear Calc Drug Dose 86.6 ml/min Estimated GFR () 101.5 Estimated GFR (Non- 87.6 BUN/Creatinine Ratio 22.6 Random Glucose 155 mg/dl Calcium Level 10.5 mg/dl Test 08/29/17 06:51 Bedside Glucose 165 mg/dl Assessment & Plan (1) Chronic back pain (2) Frequent falls (3) Generalized weakness Patient has evidence of significant spinal stenosis of the cervical spine essentially from C3-C7. There are also areas of narrowing at T7-8 and breakdown at the L1 to junction above her fusion as well. Surgical attempt to correct the cervical stenosis at its present be quite large and scope and medically at this point do not believe she is a good surgical candidate. She does not appear to be overtly myelopathic but agree that discharge to rehab for continued strengthening is reasonable. We will be happy to follow her along for cervical and thoracic stenosis as an outpatient. With her current medical condition if it is deemed that she does need surgical intervention this is likely need to be done at a tertiary care facility with an acute rehab facility attached. Please contact us with any other questions or concerns.
[2017-08-29] MEDS: DOXYCYCLINE IV 100 MG in DEXTROSE 5% 100ML 100 ML IV SCH ×2 (08:13→20:34)
[2017-08-29] MEDS: BOOST GLUCOSE CONTROL PO SCH ×3 (08:15→20:48)
[2017-08-29] MEDS ORDERED: POTASSIUM CHLORIDE 10 MEQ TABCR PO SCH (09:00)
[2017-08-29] MEDS ORDERED: FUROSEMIDE INJ 40 MG in SYRINGE 0 ML IV SCH (09:00)
[2017-08-29] MEDS ORDERED: BOOST GLUCOSE CONTROL PO SCH (11:30)
[2017-08-29] MEDS: HYDROCODONE/ACETAMIN 5/325MG TAB PO PRN ×2 (12:06→17:32)
--- NOTE | 2017-08-29 12:07 | PROGRESS NOTE ---
DATE: 08/29/2017 SUBJECTIVE: Emy kent is a little more awake and alert today, still is requiring her oxygen and is in a mild degree of respiratory distress, but she moves all her extremities. Exam still shows extensor toe sign on the left and equivocal one on the right, but pretty good strength distally in the lower extremities and pretty good coordination. MRI scans have shown some multilevel, likely chronic compression fractures and in the cervical spine cord compromise and flattening, but I do not see any signal in the mid cervical region. This could be responsible for extensor toe sign on the left and some parts of her gait disturbance, but frankly in view of this woman's large number of medical problems not the least which is her pulmonary disease, I am not sure a surgical intervention will be offered here. That having been said, I think our spine surgeons probably should take a look and at least make the judgment call about whether this might be a surgically approachable lesion or whether they would prefer to wait and see and frankly I am not sure she is a candidate for any type of surgery anyway. I just found their consultation note from this morning and have reviewed it I agree totally with the conclusions to have her evaluated by rehabilitation and to put off surgery for now I agree that if surgical intervention would be required in the future it would have to be at a tertiary center due to the need for extensive surgery and due to her medical problems Neurology is signing off at this time as we have no other recommendations MTDD
--- NOTE | 2017-08-29 13:57 | DIAGNOSTIC IMAGING REPORT ---
CHEST ONE VIEW PORTABLE CLINICAL HISTORY: ff up chf, pneumonia dyspnea COMPARISON STUDY: 08/27/2017 FINDINGS: Findings of congestive failure/pulmonary edema slightly improved from the prior exam. Visibility of the cardiac outline on the left is improved. Slight improvement in aeration right base. Diaphragms remain smooth. IMPRESSION: Congestive failure/pulmonary edema slightly improved from the prior exam. The above report was generated using voice recognition software. It may contain grammatical, syntax or spelling errors. Electronically signed by: Minh Ricks M.D. 08/29/2017 1:55 PM Dictated Date/Time: 08/29/2017 1:55 PM
--- NOTE | 2017-08-29 18:02 | Progress Note ---
Medicine Progress Note Date & Time of Visit: Aug 29, 2017 at 17:59. Subjective patient seen resting in bed alert, oriented x 3 not in distress, no acc muscle use states that pain level is about the same denies weakness/numbness breathing is "OK", denies cough no other symptoms Objective Last 8 Hrs Date Time Temp Pulse Resp B/P (MAP) Pulse Ox O2 Delivery O2 Flow Rate FiO2 08/29/17 15:34 90 22 92 Nasal Cannula 6.0 08/29/17 15:22 36.8 90 20 127/79 (95) 90 Nasal Cannula 6.0 08/29/17 12:00 Nasal Cannula 6.0 Humidified Oxygen 08/29/17 11:29 36.6 91 18 127/77 (94) 86 4.5 08/29/17 11:14 88 22 88 Nasal Cannula 5.0 Physical Exam: General- oriented x 3, not in distress, speaks in sentences with no effort Neck- no JVD Lungs- mild rales at the bases, occasional scattered wheeze Heart- regular rhythm; no murmur, normal rate Abdomen- normal bowel sounds, soft, nontender, no masses Extremities- trace pretibial edema, no calf tenderness; peripheral pulses intact Neuro- alert, oriented x 3; no other gross focal neuro deficits UE 5/5, sensation 100% LE 4/5, sensation 100% Skin- warm & dry Laboratory Results: Last 24 Hours Test 08/28/17 20:38 08/29/17 05:45 08/29/17 06:51 08/29/17 11:04 Bedside Glucose 209 mg/dl 165 mg/dl 164 mg/dl Sodium Level 138 mmol/L Potassium Level 4.0 mmol/L Chloride Level 107 mmol/L Carbon Dioxide Level 23 mmol/L Anion Gap 8.0 mmol/L Blood Urea Nitrogen 16 mg/dl Creatinine 0.69 mg/dl Est Creatinine Clear Calc Drug Dose 86.6 ml/min Estimated GFR () 101.5 Estimated GFR (Non- 87.6 BUN/Creatinine Ratio 22.6 Random Glucose 155 mg/dl Calcium Level 10.5 mg/dl Test 08/29/17 16:21 Bedside Glucose 205 mg/dl Assessment & Plan 72 year old female with history of CAD, DM, HTN, Gastric Bypass presenting with falls. ACUTE ON CHRONIC HYPOXIC RESPIRATORY FAILURE PNEUMONIA, LLL - possible HCAP - sputum culture: pending collection blood cultures: negative so far nasal MRSA swab negative - afebrile still on 6 litersNC (+) wheezing improving - Zosyn + Doxy day 4 increase Lasix 40 mg IV BID Nebs monitor ALTERED MENTAL STATUS, LIKELY DELIRIUM - likely secondary to polypharmacy (muscle relaxants, excessive OTC Benadryl intake as per family in particular) - CT head: no acute findings MRI Brain: Chronic Small Vessel changes - Neuro consulted - now only on Nortriptyline- being tapered off, Sertraline decrease Nortriptyline to 25mg - has poor short term memory per daughter, may have early dementia Neuro ff up CHRONIC PAIN SYNDROME chronic back pain status post surgery/hx myofascial pain syndrome as per records - consulted Pain Management - serologies ordered - Thoracic spine xray: possible midthoracic compression fracture Lumbar spine xray: degenerative joint disease - discussed with family, they are concerned about her pain control discussed with Dr. Hidalgo, may resume Hydrocodone as long as patient is admitted/in Rehab/SNF - Cervical/Thoracic/Lumbar Spine MRI noted: (+) compression Fx (+) cervical spine stenosis - no neurologic deficit noted added Prednisone for pain control [place] increased to TID, monitor closely avoiding Gabapentin for high risk of alteration in mental status - Ortho Spine consulted: no plan for surgery at this time, close outpatient ff up S/P FALLS - likely secondary to polypharmacy, deconditioning - PT/OT in progress - Left Rib anterior 6th Fracture: Incentive Taz - R elbow Xray to r/o Fracture: negative - patient agreeable to go to rehab/snf CAD S/P STENT - continue on coreg, Imdur, losartan and plavix. HYPERTENSION - stable DM2 - on oral meds, well controlled as of recent outpatient HgA1c of 5.9 in May 2017. ISS in hospital. Ongoing tobacco abuse - counselling Nicotine patch DVT PROPHYLAXIS Lovenox DISPOSITION lives alone at home PT/OT in progress patient agreeable with Rehab now discussed case at length with daughter Jessica all questions answered she is agreeable and comfortable with plan of care Current Inpatient Medications: Current Inpatient Medications Medications (Trade) Dose Ordered Sig/Tyron Route Start Time Stop Time Status Last Admin Dose Admin Enoxaparin Sodium (Lovenox Inj) 40 mg Q24H SC 08/22/17 06:00 09/21/17 05:59 08/29/17 06:24 40 MG Acetaminophen (Tylenol Tab) 650 mg Q4H PRN PO 08/22/17 00:45 09/21/17 00:44 08/27/17 11:48 650 MG Nitroglycerin (Nitrostat Tab) 0.4 mg UD PRN SL 08/22/17 00:45 09/21/17 00:44 Insulin Aspart (novoLOG ASPART) SLIDING SCALE If C... ACHS SC 08/22/17 07:00 09/21/17 06:59 08/29/17 17:34 1 UNITS Glucose (Glucose 40% Gel) 15-30 GRAMS 15 GRAMS... UD PRN PO 08/22/17 00:45 09/21/17 00:44 Glucose (Glucose Chew Tab) 4-8 Tablets 4 Tabl... UD PRN PO 08/22/17 00:45 09/21/17 00:44 Dextrose (Dextrose 50% 50ML Syringe) 25-50ML OF 50% DW IV FOR... UD PRN IV 08/22/17 00:45 09/21/17 00:44 Glucagon (Glucagon Inj) 1 mg UD PRN SQ 08/22/17 00:45 09/21/17 00:44 Clopidogrel Bisulfate (plAVix TAB) 75 mg DAILY PO 08/22/17 09:00 09/21/17 08:59 08/29/17 08:04 75 MG Isosorbide Mononitrate (Imdur Ext Rel Tab) 30 mg QAM PO 08/22/17 09:00 09/21/17 08:59 08/29/17 08:04 30 MG Levothyroxine Sodium (Synthroid Tab) 125 mcg DAILYBB PO 08/22/17 06:00 09/21/17 05:59 08/29/17 06:23 125 MCG Losartan Potassium (coZAAR TAB) 25 mg DAILY PO 08/22/17 09:00 09/21/17 08:59 08/29/17 08:05 25 MG Prochlorperazine Edisylate 5 mg/ Syringe 5 ml @ 5 mls/min Q6H PRN IV 08/22/17 00:45 09/21/17 00:44 Loratadine (Claritin Tab) 10 mg DAILY PRN PO 08/22/17 00:45 09/21/17 00:44 08/29/17 08:02 10 MG Sertraline HCl (Zoloft Tab) 200 mg DAILY PO 08/22/17 09:00 09/21/17 08:59 08/29/17 08:04 200 MG Nicotine (Nicoderm Cq 21MG Patch) 1 patch QAM TD 08/22/17 09:00 09/21/17 08:59 08/29/17 08:05 1 PATCH Miscellaneous (Remove Nicoderm Patch) 1 ea HS N/A 08/22/17 21:00 09/21/17 20:59 08/28/17 21:00 1 EA Carvedilol (Coreg Tab) 3.125 mg BID PO 08/22/17 21:00 09/21/17 08:59 08/29/17 08:02 3.125 MG Miscellaneous (Iv Fluids Completed) 1 ea PRN PRN N/A 08/22/17 04:00 08/22/18 03:59 Lidocaine (Lidoderm Patch 5%) 1 patch QAM TD 08/23/17 09:00 09/22/17 08:59 08/29/17 08:05 1 PATCH Miscellaneous (Remove Lidoderm Patch) 1 ea DAILY@21 N/A 08/22/17 21:00 09/21/17 20:59 08/28/17 21:00 1 EA Senna/Docusate Sodium (Senokot S Tab) 1 tab BID PO 08/23/17 21:00 09/22/17 20:59 08/29/17 08:03 1 TAB Miconazole Nitrate (Desenex Powder) 1 appln PRN PRN EXT 08/25/17 05:30 09/24/17 05:29 08/26/17 06:02 1 APPLN Albuterol/ Ipratropium (Duoneb) 3 ml QIDR INH 08/26/17 08:00 09/25/17 07:59 08/29/17 15:33 3 ML Miscellaneous Information (Consult) 1 ea UD PRN N/A 08/25/17 22:30 09/24/17 22:29 Piperacillin Sod/ Tazobactam Sod 4.5 gm/Dextrose 120 ml @ 30 mls/hr Q8H IV 08/26/17 04:00 09/02/17 03:59 08/29/17 12:04 30 MLS/HR Doxycycline Hyclate 100 mg/ Dextrose 110 ml @ 50 mls/hr BID IV 08/26/17 09:00 09/02/17 08:59 08/29/17 08:13 50 MLS/HR Potassium Chloride (Klor-Con Tab) 40 meq BID PO 08/28/17 21:00 09/27/17 20:59 08/29/17 08:03 40 MEQ Furosemide 40 mg/ Syringe 4 ml @ 4 mls/min DAILY IV 08/29/17 09:00 09/27/17 11:59 08/29/17 08:01 4 MLS/MIN Nortriptyline HCl (Pamelor Cap) 25 mg HS PO 08/28/17 21:00 09/21/17 20:59 08/28/17 21:56 25 MG Prednisone (PredniSONE TAB) 40 mg DAILY PO 08/29/17 09:00 09/28/17 08:59 08/29/17 08:03 40 MG Enteral Nutritional Formula (Boost Glucose Control) 1 can TID PO 08/28/17 21:00 08/30/17 09:01 08/29/17 17:34 1 CAN Furosemide 20 mg/ Syringe 2 ml @ 4 mls/min DAILY@1999 IV 08/29/17 20:00 09/28/17 19:59 Acetaminophen/ Hydrocodone Bitart ([place] 5/325 Tab) 1 tab Q8H PRN PO 08/29/17 17:00 09/10/17 12:14 08/29/17 17:32 1 TAB
[2017-08-29] MEDS ORDERED: FUROSEMIDE INJ 20 MG in SYRINGE 0 ML IV SCH (20:00)
[2017-08-29] MEDS: NORTRIPTYLINE HCL 25 MG CAP PO SCH (20:45)
[2017-08-29] MEDS: FUROSEMIDE INJ 40 MG in SYRINGE 0 ML IV SCH (22:09)
[2017-08-30] VITALS (14 sets, daily range): BP systolic 107–141; BP diastolic 68–85; PULSE 76–91; TEMP 36.6–37.1; O2SAT 77–96
[2017-08-30] MEDS: PIPERACILL/TAZOBAC IV 4.5 GM in DEXTROSE 5% 100ML IV SCH ×4 (00:48→20:45)
[2017-08-30] MEDS: HYDROCODONE/ACETAMIN 5/325MG TAB PO PRN ×2 (03:33→18:09)
[2017-08-30] MEDS: LEVOTHYROXINE 125 MCG TAB PO SCH (06:10)
[2017-08-30] MEDS: ENOXAPARIN 40 MG/0.4 ML SYR SC SCH (06:11)
[2017-08-30 06:56] LABS: CALCIUM 10.7 mg/dl (8.5-10.1); CREATININE 0.83 mg/dl (0.60-1.20); POTASSIUM 4.1 mmol/L (3.5-5.1)
[2017-08-30] MEDS: INSULIN ASPART 100 UNITS/ML 3 ML PEN SC SCH ×4 (07:00→20:58)
[2017-08-30] MEDS: ALBUT/IPRATROP 3MG/0.5MG NEB 3 ML VIAL INH SCH ×4 (07:08→19:45)
[2017-08-30] MEDS: CARVEDILOL 3.125 MG TAB PO SCH ×2 (07:53→20:43)
[2017-08-30] MEDS: LOSARTAN POTASSIUM 25 MG TAB PO SCH (07:53)
[2017-08-30] MEDS: BOOST GLUCOSE CONTROL PO SCH (07:53)
[2017-08-30] MEDS: DOXYCYCLINE IV 100 MG in DEXTROSE 5% 100ML 100 ML IV SCH ×2 (07:53→19:14)
[2017-08-30] MEDS: FUROSEMIDE INJ 40 MG in SYRINGE 0 ML IV SCH ×2 (07:53→20:43)
[2017-08-30] MEDS: ISOSORBIDE MONONITRATE 30 MG TABCR PO SCH (07:54)
[2017-08-30] MEDS: CLOPIDOGREL BISULFATE 75 MG TAB PO SCH (07:54)
[2017-08-30] MEDS: POTASSIUM CHLORIDE 20 MEQ TABCR PO SCH ×2 (07:54→20:43)
[2017-08-30] MEDS: SERTRALINE HCL 100 MG TAB PO SCH (07:54)
[2017-08-30] MEDS: DOCUSATE SODIUM/SENNA 50/8.6MG TAB PO SCH ×2 (07:54→20:44)
[2017-08-30] MEDS: NICOTINE 21 MG/24 HR TDSY TD SCH (07:55)
[2017-08-30] MEDS: LIDODERM (LIDOCAINE) PATCH 5% TD SCH (07:55)
--- NOTE | 2017-08-30 14:22 | Progress Note ---
Medicine Progress Note Date & Time of Visit: Aug 30, 2017 at 14:21. Subjective delayed entry date of service as noted above seen resting in bed, alert, oriented x 3 conversant comfortable states pain is improving gradually denies shortness of breath, has occasional cough denies other symptoms Objective Last 8 Hrs Date Time Temp Pulse Resp B/P (MAP) Pulse Ox O2 Delivery O2 Flow Rate FiO2 08/30/17 12:01 92 Room Air 5.0 08/30/17 11:43 37.1 77 17 124/78 (93) 89 Nasal Cannula 5.0 08/30/17 11:10 89 20 90 Nasal Cannula 5.0 08/30/17 08:17 36.8 83 20 107/68 (81) 93 Nasal Cannula 5.0 08/30/17 08:01 92 Room Air 5.0 08/30/17 07:11 91 20 77 Room Air Physical Exam: General- oriented x 3, not in distress, speaks in sentences with no effort Neck- no JVD Lungs- mild rales at the bases, no wheezes Heart- regular rhythm; no murmur, normal rate Abdomen- normal bowel sounds, soft, nontender, no masses Extremities- trace pretibial edema, no calf tenderness; peripheral pulses intact Neuro- alert, oriented x 3; no other gross focal neuro deficits UE 5/5, sensation 100% LE 4/5, sensation 100% Skin- warm & dry Laboratory Results: Last 24 Hours Test 08/29/17 16:21 08/29/17 20:55 08/30/17 06:02 08/30/17 06:48 Bedside Glucose 205 mg/dl 200 mg/dl 156 mg/dl Sodium Level 139 mmol/L Potassium Level 4.1 mmol/L Chloride Level 105 mmol/L Carbon Dioxide Level 27 mmol/L Anion Gap 7.0 mmol/L Blood Urea Nitrogen 17 mg/dl Creatinine 0.83 mg/dl Est Creatinine Clear Calc Drug Dose 71.7 ml/min Estimated GFR () 82.2 Estimated GFR (Non- 70.9 BUN/Creatinine Ratio 20.5 Random Glucose 138 mg/dl Calcium Level 10.7 mg/dl Test 08/30/17 11:11 Bedside Glucose 151 mg/dl Date/Time Source Procedure Growth Status 08/29/17 19:01 Sputum Expectorated Sputum Gram Stain - Final Resulted 08/29/17 19:01 Sputum Expectorated Sputum Sputum Culture - Preliminary PIN-POINT GROWTH PRESENT, REINCUBATING. Resulted Assessment & Plan 72 year old female with history of CAD, DM, HTN, Gastric Bypass presenting with falls. ACUTE ON CHRONIC HYPOXIC RESPIRATORY FAILURE PNEUMONIA, LLL VOLUME OVERLOAD - possible HCAP sputum culture: pending collection blood cultures: negative so far nasal MRSA swab negative - afebrile still on 5-6 litersNC (+) wheezing resolved, still has rales - Zosyn + Doxy day 5 Lasix 40 mg IV BID, possible transition to PO in AM (usually on 80mg am and 40mg pm) update echo pending Nebs wean off oxygen as able monitor ALTERED MENTAL STATUS, LIKELY DELIRIUM - likely secondary to polypharmacy (muscle relaxants, excessive OTC Benadryl intake as per family in particular) - CT head: no acute findings MRI Brain: Chronic Small Vessel changes - Neuro consulted - now only on Nortriptyline- being tapered off, Sertraline decreased Nortriptyline to 25mg, d/c in 1-2 days - has poor short term memory per daughter, may have early dementia has intermittent confusion/hallucinations- likely hospital delirium, pneumonia needs to ff up closely with Neuro CHRONIC PAIN SYNDROME chronic back pain status post surgery/hx myofascial pain syndrome as per records - consulted Pain Management - serologies ordered - Thoracic spine xray: possible midthoracic compression fracture Lumbar spine xray: degenerative joint disease - discussed with family, they are concerned about her pain control discussed with Dr. Hidalgo, may resume Hydrocodone as long as patient is admitted/in Rehab/SNF - Cervical/Thoracic/Lumbar Spine MRI noted: (+) compression Fx (+) cervical spine stenosis - no neurologic deficit noted added Prednisone for pain control [place] increased to TID, monitor closely avoiding Gabapentin for high risk of alteration in mental status - Ortho Spine consulted: no plan for surgery at this time, close outpatient ff up - pain seems to be improving since Prednisone and [place] started monitor S/P FALLS - likely secondary to polypharmacy, deconditioning - PT/OT in progress - Left Rib anterior 6th Fracture: Incentive Taz - R elbow Xray to r/o Fracture: negative - patient agreeable to go to rehab/snf upon discharge CAD S/P STENT - continue on coreg, Imdur, losartan and plavix. HYPERTENSION - stable DM2 - on oral meds, well controlled as of recent outpatient HgA1c of 5.9 in May 2017. ISS in hospital. Ongoing tobacco abuse - counselling Nicotine patch DVT PROPHYLAXIS Lovenox DISPOSITION lives alone at home PT/OT in progress patient agreeable with Rehab daughter Jessica requesting daily update Current Inpatient Medications: Current Inpatient Medications Medications (Trade) Dose Ordered Sig/Tyron Route Start Time Stop Time Status Last Admin Dose Admin Enoxaparin Sodium (Lovenox Inj) 40 mg Q24H SC 08/22/17 06:00 09/21/17 05:59 08/30/17 06:11 40 MG Acetaminophen (Tylenol Tab) 650 mg Q4H PRN PO 08/22/17 00:45 09/21/17 00:44 08/27/17 11:48 650 MG Nitroglycerin (Nitrostat Tab) 0.4 mg UD PRN SL 08/22/17 00:45 09/21/17 00:44 Insulin Aspart (novoLOG ASPART) SLIDING SCALE If C... ACHS SC 08/22/17 07:00 09/21/17 06:59 08/29/17 21:01 1 UNITS Glucose (Glucose 40% Gel) 15-30 GRAMS 15 GRAMS... UD PRN PO 08/22/17 00:45 09/21/17 00:44 Glucose (Glucose Chew Tab) 4-8 Tablets 4 Tabl... UD PRN PO 08/22/17 00:45 09/21/17 00:44 Dextrose (Dextrose 50% 50ML Syringe) 25-50ML OF 50% DW IV FOR... UD PRN IV 08/22/17 00:45 09/21/17 00:44 Glucagon (Glucagon Inj) 1 mg UD PRN SQ 08/22/17 00:45 09/21/17 00:44 Clopidogrel Bisulfate (plAVix TAB) 75 mg DAILY PO 08/22/17 09:00 09/21/17 08:59 08/30/17 07:54 75 MG Isosorbide Mononitrate (Imdur Ext Rel Tab) 30 mg QAM PO 08/22/17 09:00 09/21/17 08:59 08/30/17 07:54 30 MG Levothyroxine Sodium (Synthroid Tab) 125 mcg DAILYBB PO 08/22/17 06:00 09/21/17 05:59 08/30/17 06:10 125 MCG Losartan Potassium (coZAAR TAB) 25 mg DAILY PO 08/22/17 09:00 09/21/17 08:59 08/30/17 07:53 25 MG Prochlorperazine Edisylate 5 mg/ Syringe 5 ml @ 5 mls/min Q6H PRN IV 08/22/17 00:45 09/21/17 00:44 Loratadine (Claritin Tab) 10 mg DAILY PRN PO 08/22/17 00:45 09/21/17 00:44 08/29/17 08:02 10 MG Sertraline HCl (Zoloft Tab) 200 mg DAILY PO 08/22/17 09:00 09/21/17 08:59 08/30/17 07:54 200 MG Nicotine (Nicoderm Cq 21MG Patch) 1 patch QAM TD 08/22/17 09:00 09/21/17 08:59 08/29/17 08:05 1 PATCH Miscellaneous (Remove Nicoderm Patch) 1 ea HS N/A 08/22/17 21:00 09/21/17 20:59 08/29/17 20:54 1 EA Carvedilol (Coreg Tab) 3.125 mg BID PO 08/22/17 21:00 09/21/17 08:59 08/30/17 07:53 3.125 MG Miscellaneous (Iv Fluids Completed) 1 ea PRN PRN N/A 08/22/17 04:00 08/22/18 03:59 Lidocaine (Lidoderm Patch 5%) 1 patch QAM TD 08/23/17 09:00 09/22/17 08:59 08/30/17 07:55 1 PATCH Miscellaneous (Remove Lidoderm Patch) 1 ea DAILY@21 N/A 08/22/17 21:00 09/21/17 20:59 08/29/17 20:54 1 EA Senna/Docusate Sodium (Senokot S Tab) 1 tab BID PO 08/23/17 21:00 09/22/17 20:59 08/30/17 07:54 1 TAB Miconazole Nitrate (Desenex Powder) 1 appln PRN PRN EXT 08/25/17 05:30 09/24/17 05:29 08/26/17 06:02 1 APPLN Albuterol/ Ipratropium (Duoneb) 3 ml QIDR INH 08/26/17 08:00 09/25/17 07:59 08/30/17 11:10 3 ML Miscellaneous Information (Consult) 1 ea UD PRN N/A 08/25/17 22:30 09/24/17 22:29 Piperacillin Sod/ Tazobactam Sod 4.5 gm/Dextrose 120 ml @ 30 mls/hr Q8H IV 08/26/17 04:00 09/02/17 03:59 08/30/17 13:16 30 MLS/HR Doxycycline Hyclate 100 mg/ Dextrose 110 ml @ 50 mls/hr BID IV 08/26/17 09:00 09/02/17 08:59 08/30/17 07:53 50 MLS/HR Potassium Chloride (Klor-Con Tab) 40 meq BID PO 08/28/17 21:00 09/27/17 20:59 08/30/17 07:54 40 MEQ Nortriptyline HCl (Pamelor Cap) 25 mg HS PO 08/28/17 21:00 09/21/17 20:59 08/29/17 20:45 25 MG Prednisone (PredniSONE TAB) 40 mg DAILY PO 08/29/17 09:00 09/28/17 08:59 08/30/17 07:54 40 MG Acetaminophen/ Hydrocodone Bitart ([place] 5/325 Tab) 1 tab Q8H PRN PO 08/29/17 17:00 09/10/17 12:14 08/30/17 03:33 1 TAB Furosemide 40 mg/ Syringe 4 ml @ 4 mls/min Q12H IV 08/29/17 21:00 09/27/17 11:59 08/30/17 07:53 4 MLS/MIN
--- NOTE | 2017-08-30 16:41 | ECHOCARDIOGRAM REPORT ---
*NOTICE TO RECEIVING DEMOCRAT AGENCY This information is strictly Confidential and protected under [place] law. [place] law prohibits you from making any further disclosure of this information unless further disclosure is expressly permitted by the written consent of the person to whom it pertains or is authorized by law. A general authorization for the release of medical or other information is not sufficient for this purpose. Hospital accepts no responsibility if the information is made available to any other person, INCLUDING THE PATIENT. Interpretation Summary * Name: NELLY CALLAWAY Study Date: 08/30/2017 03:02 PM BP: 124/78 mmHg * Patient Location: C.2T\S\S236\S\1 HR: 77 * : 1945 (M/d/yyy) Gender: Female Height: 64 in * Age: 72 yrs Ethnicity: [place] Weight: 221 lb * Ordering Physician: Nicolas Maradiaga * Referring Physician: Self, Referred * Performed By: Suly Rhodes RDCS * * Reason For Study: CHF * BSA: 2.0 m2 * The study was technically adequate. * There is no comparison study available. * -- Conclusions -- * Ejection Fraction = 55-60%. * There is mild concentric left ventricular hypertrophy. * The left coronary aortic valve cusp appears focally calcified with reduced mobility. * Aortic valve sclerosis moderate, without significant aortic valvular stenosis. * There is trace tricuspid regurgitation. * The estimated systolic PAP is 36mmHg. * Grade I diastolic dysfunction, (abnormal relaxation pattern). Procedure Details * A complete two-dimensional transthoracic echocardiogram was performed (2D, M-mode, Doppler and color flow Doppler). Left Ventricle * The left ventricle is normal in size. * There is no thrombus. * There is mild concentric left ventricular hypertrophy. * Ejection Fraction = 55-60%. * Left ventricular systolic function is normal. * No regional wall motion abnormalities noted. Right Ventricle * The right ventricle is normal size. * The right ventricular systolic function is normal as assessed by tricuspid annular plane systolic excursion (TAPSE) (normal >1.5 cm). Atria * The left atrial size is normal. * Right atrial size is normal. * There is no evidence of atrial septal defect, but resolution does not allow assessment for a patent foramen ovale. Mitral Valve * The mitral valve is normal. * There is no mitral valve stenosis. * Significant mitral regurgitation is absent. Tricuspid Valve * The tricuspid valve is normal. * There is no tricuspid stenosis. * There is trace tricuspid regurgitation. * The estimated systolic PAP is 36mmHg. Aortic Valve * The left coronary aortic valve cusp appears focally calcified with reduced mobility. * Aortic valve sclerosis moderate, without significant aortic valvular stenosis. * No hemodynamically significant valvular aortic stenosis. * There is no significant aortic regurgitation. Pulmonic Valve * The pulmonary valve is not well seen, but the Doppler examination is normal without significant regurgitation or stenosis. Great Vessels * The aortic root is normal size. Pericardium/Pleural * There is no pericardial effusion. Great Vessels * Normal inferior vena cava diameter and respiratory variation suggests normal central venous pressure. Left Ventricular Diastolic Function * Grade I diastolic dysfunction, (abnormal relaxation pattern). MMode 2D Measurements and Calculations IVSd 1.3 cm IVSs 2.0 cm LVIDd 4.2 cm LVIDs 3.0 cm LVPWd 1.4 cm LVPWs 2.1 cm IVS/LVPW 0.93 FS 29.1 % EDV(Teich) 78.3 ml ESV(Teich) 34.2 ml EF(Teich) 56.3 % EDV(cubed) 73.7 ml ESV(cubed) 26.3 ml EF(cubed) 64.3 % % IVS thick 55.7 % % LVPW thick 47.4 % LV mass(C)d 211.5 grams LV mass(C)dI 103.6 grams/m\S\2 LV mass(C)s 271.1 grams LV mass(C)sI 132.9 grams/m\S\2 SV(Teich) 44.0 ml SI(Teich) 21.6 ml/m\S\2 SV(cubed) 47.4 ml SI(cubed) 23.2 ml/m\S\2 Ao root diam 3.7 cm Ao root area 10.6 cm\S\2 LA dimension 3.5 cm LA/Ao 0.94 LVOT diam 2.1 cm LVOT area 3.5 cm\S\2 LVAd ap4 32.1 cm\S\2 LVLd ap4 8.4 cm EDV(MOD-sp4) 97.7 ml EDV(sp4-el) 103.6 ml LVAs ap4 19.4 cm\S\2 LVLs ap4 7.3 cm ESV(MOD-sp4) 44.1 ml ESV(sp4-el) 43.8 ml EF(MOD-sp4) 54.9 % EF(sp4-el) 57.7 % LVAd ap2 28.8 cm\S\2 LVLd ap2 7.8 cm EDV(MOD-sp2) 86.3 ml EDV(sp2-el) 89.5 ml LVAs ap2 17.5 cm\S\2 LVLs ap2 7.2 cm ESV(MOD-sp2) 36.7 ml ESV(sp2-el) 36.1 ml EF(MOD-sp2) 57.5 % EF(sp2-el) 59.6 % LVLd %diff -7.67 % EDV(MOD-bp) 95.7 ml LVLs %diff -1.13 % ESV(MOD-bp) 40.4 ml EF(MOD-bp) 57.8 % SV(MOD-sp4) 53.6 ml SI(MOD-sp4) 26.3 ml/m\S\2 SV(MOD-sp2) 49.6 ml SI(MOD-sp2) 24.3 ml/m\S\2 SV(MOD-bp) 55.3 ml SI(MOD-bp) 27.1 ml/m\S\2 SV(sp4-el) 59.8 ml SI(sp4-el) 29.3 ml/m\S\2 SV(sp2-el) 53.4 ml SI(sp2-el) 26.2 ml/m\S\2 Doppler Measurements and Calculations MV E max anthony 85.9 cm/sec MV A max anthony 94.2 cm/sec MV E/A 0.91 MV dec time 0.22 sec Ao V2 max 221.3 cm/sec Ao max PG 19.6 mmHg Ao max PG (full) 14.2 mmHg Ao V2 mean 142.7 cm/sec Ao mean PG 9.8 mmHg Ao mean PG (full) 6.9 mmHg Ao V2 VTI 45.6 cm JOVITA(I,A) 2.0 cm\S\2 JOVITA(I,D) 2.0 cm\S\2 JOVITA(V,A) 1.8 cm\S\2 JOVITA(V,D) 1.8 cm\S\2 LV V1 max PG 5.4 mmHg LV V1 mean PG 2.9 mmHg LV V1 max 116.5 cm/sec LV V1 mean 78.3 cm/sec LV V1 VTI 26.5 cm SV(Ao) 482.5 ml SI(Ao) 236.4 ml/m\S\2 SV(LVOT) 92.5 ml SI(LVOT) 45.3 ml/m\S\2 TR max anthony 288.7 cm/sec
[2017-08-30] MEDS: NORTRIPTYLINE HCL 25 MG CAP PO SCH (20:43)
[2017-08-31] VITALS (11 sets, daily range): BP systolic 108–162; BP diastolic 66–90; PULSE 71–84; TEMP 36.6–36.9; O2SAT 91–94
[2017-08-31] MEDS: HYDROCODONE/ACETAMIN 5/325MG TAB PO PRN ×3 (03:34→21:54)
[2017-08-31] MEDS: PIPERACILL/TAZOBAC IV 4.5 GM in DEXTROSE 5% 100ML IV SCH ×3 (03:42→20:18)
[2017-08-31] MEDS: LEVOTHYROXINE 125 MCG TAB PO SCH (05:45)
[2017-08-31] MEDS: ENOXAPARIN 40 MG/0.4 ML SYR SC SCH (05:45)
[2017-08-31 06:12] LABS: BASO % 0.1 %; BASO ABS # 0.01 K/uL (0-0.2); EOS % 1.1 %; EOS ABS # 0.12 K/uL (0-0.5); HEMATOCRIT 32.4 % (37-47); HEMOGLOBIN 10.5 g/dL (12.0-16.0); IG# 0.44 K/uL (0.00-0.02); LYMPH % 18.5 %; LYMPH ABS # 1.99 K/uL (1.2-3.4); MEAN CELL VOLUME 98.2 fL (80-100); MEAN CORPUSCULAR HEMOGLOBIN 31.8 pg (25-34); MEAN CORPUSCULAR HGB CONC 32.4 g/dl (32-36); MEAN PLATELET VOLUME 9.3 fL (7.4-10.4); MONO ABS # 1.18 K/uL (0.11-0.59); NEUT % 65.2 %; NEUT ABS # 7.02 K/uL (1.4-6.5); NUCLEATED RED BLOOD CELL ABS 0.02 K/uL (0-0); PLATELET COUNT 237 K/uL (130-400); RED CELL DISTRIBUTION WIDTH CV 13.7 % (11.5-14.5); RED CELL DISTRIBUTION WIDTH SD 49.2 fL (36.4-46.3); WHITE BLOOD COUNT 10.76 K/uL (4.8-10.8)
[2017-08-31 06:39] LABS: CALCIUM 10.8 mg/dl (8.5-10.1); CREATININE 0.87 mg/dl (0.60-1.20); POTASSIUM 4.1 mmol/L (3.5-5.1)
[2017-08-31] MEDS: INSULIN ASPART 100 UNITS/ML 3 ML PEN SC SCH ×4 (07:00→20:25)
[2017-08-31] MEDS: ALBUT/IPRATROP 3MG/0.5MG NEB 3 ML VIAL INH SCH ×4 (07:10→20:14)
[2017-08-31] MEDS: FUROSEMIDE INJ 40 MG in SYRINGE 0 ML IV SCH ×2 (08:34→20:19)
[2017-08-31] MEDS: CARVEDILOL 3.125 MG TAB PO SCH ×2 (08:35→20:23)
[2017-08-31] MEDS: LOSARTAN POTASSIUM 25 MG TAB PO SCH (08:35)
[2017-08-31] MEDS: POTASSIUM CHLORIDE 20 MEQ TABCR PO SCH ×2 (08:35→20:23)
[2017-08-31] MEDS: ISOSORBIDE MONONITRATE 30 MG TABCR PO SCH (08:35)
[2017-08-31] MEDS: CLOPIDOGREL BISULFATE 75 MG TAB PO SCH (08:35)
[2017-08-31] MEDS: DOCUSATE SODIUM/SENNA 50/8.6MG TAB PO SCH (08:35)
[2017-08-31] MEDS: SERTRALINE HCL 100 MG TAB PO SCH (08:36)
[2017-08-31] MEDS: NICOTINE 21 MG/24 HR TDSY TD SCH (08:36)
[2017-08-31] MEDS: LIDODERM (LIDOCAINE) PATCH 5% TD SCH (08:36)
[2017-08-31] MEDS: DOXYCYCLINE IV 100 MG in DEXTROSE 5% 100ML 100 ML IV SCH (08:41)
--- NOTE | 2017-08-31 10:13 | Progress Note ---
Internal Med Progress Note Date of Service: Aug 31, 2017. Provider Documentation: SUBJECTIVE: Seen and examined at bedside Chronic pain is stable Intermittent dry cough Oriented X3 Denies chest pain, SOB, dizziness Eager to get discharged Still requiring 5L to maintain Sats OBJECTIVE: Vital Signs-as noted below Physical Exam: General Appearance:Moderately built and nourished, no apparent distress Head: normocephalic, Atraumatic Eyes: normal inspection, EOMI, PERRL Neck: supple, Trachea midline Respiratory/Chest: Decreased breath sounds, scattered rales Cardiovascular: S1, S2, No murmur Abdomen/GI:Soft, Non tender, Bowel sounds present Extremities/Musculoskelatal:normal inspection, no edema Neurologic/Psych:AAOX3, grossly no focal neurological deficits Skin: normal color, warm Lab data as noted below. ASSESSMENT & PLAN: Patient is a 72 yr female with PMH of CAD, DM II, HTN, Gastric Bypass presented with falls. Acute on Chronic Hypoxic respiratory failure Pneumonia, LLL Volume Overload Possible HCAP Sputum culture: Pinpoint growth Blood cultures: negative to date Nasal MRSA swab negative Continue Zosyn and Doxy day 6/7 Wean off oxygen as able Continue Lasix 40 mg IV BID, Plan to transition to PO in 1-2 days (usually on 80mg am and 40mg pm) ECHO as below Continue Nebs, also on prednisone taper Altered mental status, Likely delirium/secondary to polypharmacy Was on muscle relaxants, excessive OTC Benadryl intake as per family in particular CT head: no acute findings MRI Brain: Chronic Small Vessel changes Neurology consulted On Nortriptyline- being tapered off (Not helpful and potential for misuse of this medication) Continue Sertraline Nortriptyline decreased to 25mg, plan to d/c in 1-2 days Has poor short term memory per daughter, may have early dementia Needs follow up closely with Neurology upon discharge Chronic Pain Syndrome chronic back pain status post surgery/hx myofascial pain syndrome as per records consulted Pain Management serologies: Lyme/RPR negative Thoracic spine xray: possible midthoracic compression fracture Lumbar spine xray: degenerative joint disease Cervical/Thoracic/Lumbar Spine MRI noted: (+) compression Fx (+) cervical spine stenosis No neurologic deficit noted added Prednisone for pain control: need to be tapered [place] increased to TID, monitor closely avoid Gabapentin for high risk of alteration in mental status Prior hospitalist with Dr. Hidalgo, may resume Hydrocodone as long as patient is admitted/in Rehab/SNF Ortho Spine consulted: no plan for surgery at this time, close outpatient follow up Pain is controlled, monitor S/P Falls likely secondary to polypharmacy, deconditioning PT/OT Left Rib anterior 6th Fracture: Incentive Spirometry R elbow Xray to r/o Fracture: negative Needs Rehab/SNF placement CAD S/P Stent continue on coreg, Imdur, losartan and plavix. HTN stable DM II on oral meds, well controlled as of recent outpatient HgA1c of 5.9 in May 2017. Continue ISS Ongoing tobacco abuse counselling Nicotine patch DVT Px: Lovenox SQ Disposition: lives alone at home PT/OT patient agreeable with Rehab daughter Jessica requesting daily update PROCEDURES: ECHO: * Ejection Fraction = 55-60%. * There is mild concentric left ventricular hypertrophy. * The left coronary aortic valve cusp appears focally calcified with reduced mobility. * Aortic valve sclerosis moderate, without significant aortic valvular stenosis. * There is trace tricuspid regurgitation. * The estimated systolic PAP is 36mmHg. * Grade I diastolic dysfunction, (abnormal relaxation pattern). Vital Signs: Date Time Temp Pulse Resp B/P (MAP) Pulse Ox O2 Delivery O2 Flow Rate FiO2 08/31/17 08:01 92 Room Air 5.0 08/31/17 07:28 36.9 83 24 162/90 (114) 92 Nasal Cannula 5.0 08/31/17 07:10 83 20 92 Nasal Cannula 5.0 08/31/17 04:00 Nasal Cannula 5.0 Humidified Oxygen 08/31/17 03:21 36.6 79 18 144/78 (100) 91 08/31/17 00:01 Nasal Cannula 5.0 Humidified Oxygen 08/30/17 23:56 36.9 76 18 113/68 (83) 94 5.0 08/30/17 20:18 Nasal Cannula 5.0 Humidified Oxygen 08/30/17 19:49 36.8 86 19 126/80 (95) 96 Nasal Cannula 5.0 08/30/17 19:45 88 20 92 Nasal Cannula 5.0 08/30/17 16:01 92 Room Air 5.0 08/30/17 15:45 36.7 86 22 141/85 (103) 94 Oxymask 8.0 08/30/17 14:51 76 20 89 Nasal Cannula 5.0 08/30/17 12:01 92 Room Air 5.0 08/30/17 11:43 37.1 77 17 124/78 (93) 89 Nasal Cannula 5.0 08/30/17 11:10 89 20 90 Nasal Cannula 5.0 Lab Results: Results Past 24 Hours Test 08/30/17 11:11 08/30/17 16:14 08/30/17 20:44 08/31/17 05:45 Range/Units Bedside Glucose 151 196 215 70-90 mg/dl White Blood Count 10.76 4.8-10.8 K/uL Red Blood Count 3.30 4.2-5.4 M/uL Hemoglobin 10.5 12.0-16.0 g/dL Hematocrit 32.4 37-47 % Mean Corpuscular Volume 98.2 80-100 fL Mean Corpuscular Hemoglobin 31.8 25-34 pg Mean Corpuscular Hemoglobin Concent 32.4 32-36 g/dl Platelet Count 237 130-400 K/uL Mean Platelet Volume 9.3 7.4-10.4 fL Neutrophils (%) (Auto) 65.2 % Lymphocytes (%) (Auto) 18.5 % Monocytes (%) (Auto) 11.0 % Eosinophils (%) (Auto) 1.1 % Basophils (%) (Auto) 0.1 % Neutrophils # (Auto) 7.02 1.4-6.5 K/uL Lymphocytes # (Auto) 1.99 1.2-3.4 K/uL Monocytes # (Auto) 1.18 0.11-0.59 K/uL Eosinophils # (Auto) 0.12 0-0.5 K/uL Basophils # (Auto) 0.01 0-0.2 K/uL RDW Standard Deviation 49.2 36.4-46.3 fL RDW Coefficient of Variation 13.7 11.5-14.5 % Immature Granulocyte % (Auto) 4.1 % Immature Granulocyte # (Auto) 0.44 0.00-0.02 K/uL Nucleated RBC Absolute Count (auto) 0.02 0-0 K/uL Nucleated Red Blood Cells % 0.2 % Sodium Level 138 136-145 mmol/L Potassium Level 4.1 3.5-5.1 mmol/L Chloride Level 100 98-107 mmol/L Carbon Dioxide Level 32 21-32 mmol/L Anion Gap 6.0 3-11 mmol/L Blood Urea Nitrogen 20 7-18 mg/dl Creatinine 0.87 0.60-1.20 mg/dl Est Creatinine Clear Calc Drug Dose 68.4 ml/min Estimated GFR () 77.7 Estimated GFR (Non- 67.0 BUN/Creatinine Ratio 23.3 10-20 Random Glucose 99 70-99 mg/dl Calcium Level 10.8 8.5-10.1 mg/dl Test 08/31/17 06:30 Range/Units Bedside Glucose 134 70-90 mg/dl
--- NOTE | 2017-08-31 13:22 | Psychiatric Progress Notes ---
Psychiatric Progress Note Date of Service Aug 31, 2017. Notes Date of Service: 08/31/17 ID: Patient reviewed with liaison nurse. 72 y/o patient admitted on 08/21/17 after a fall resulting in head injury. Reviewed on psychiatric consult service for hallucinations and possible medication abuse. Pt is awaiting placement to inpatient rehabilitation facility to regain strength prior to returning home. Pt has been offered acceptances to 3 facilities and has requested her daughters involvement in the decision. CC: "I think I'm starting to see the light coming, things are feeling better." HPI: Emy Zhou is a 72-year-old female admitted to the medical floor following a potential head injury from a fall on 08/21/17. Initial psychiatric consult requested on 08/24/17 was completed with the recommendation for avoiding deliriogenic or addictive medications as it is suggested patient has had overuse/abuse of medications which may be causing recent falls. Home health nurse was recommended as patient is reportedly overtaking medications; however, patient was not agreeable at that time to assistance with managing medications. Pt was seen and assessed today for follow-up visit. Pt states she is feeling much better and is "ready to get out of here". We discussed her referrals for rehabilitation facilities and she states she is seeking help from her daughter during the referral process. Pt has been accepted to 3 facilities and is awaiting the final decision on placement. Pt denies any concerns today. She denies SI/HI, and A/V hallucinations at this encounter. She feels she is improving and does not feel she requires any psychiatric services at this time. Will continue to follow until placement is arranged. ROS: Psych: denies symptoms other than stated above Constitutional: denied Cardiovascular: denied GI: denied Neurologic: denied Remainder of 10 body systems also reviewed and denied other than noted above. MSE: The patient presented as alert and cooperative. The patient was dressed in hospital gown and is unkempt, but not inappropriate for physical condition and setting. Eye contact was fair. No psychomotor restlessness or agitation was noted. Speech was normal in rate, rhythm, and volume. Affect was mood congruent. The patients mood appeared euthymic. Thought processes were clear, coherent and goal directed without evidence of loose associations or flight of ideas. Thought content/perception was reality based without delusions. The patient denied suicidal and homicidal ideation. The patient denied hallucinations and did not appear to be responding to internal stimuli. Cognition was grossly intact with orientation to person, place and time. Fund of Knowledge/Intelligence were consistent with level of education. Insight and Judgement were fair at this encounter. Impression: Pt remains stable in regard to psychiatric symptoms. She denies hallucinations at this encounter; however, she is very focused on placement and does not discuss much outside the realm of discharge. Pt continues to deny SI and appears appropriate for transfer to an inpatient rehabilitation facility upon discharge. She denies urgent need for psychiatric services at this time. Plan: The patient is psychiatrically stable for transfer to an inpatient rehabilitation facility upon discharge. There is no acute indication for inpatient psychiatric hospitalization as the patient is not suicidal or homicidal; there is no evidence of psychosis. Psychiatric follow-up care for this patient should include: routine follow up with PCP for medication management. Would recommend assistance from family member or home health aide for appropriate distribution of medications. Would continue to recommend avoidance of medications which may increase risk of delirium as well as those with addictive qualities. Appreciate the opportunity to be involved in the care of this patient.
[2017-08-31] MEDS ORDERED: PHARMACY GLYCEMIC MGMT CONSULT PRN (16:43)
[2017-08-31] MEDS ORDERED: NURSING VERBAL MED ORDER ONE (17:30)
--- NOTE | 2017-08-31 19:19 | Pharmacy Progress Note ---
Pharmacy Glycemic Short Note 2 Date of Service Aug 31, 2017. OUTPATIENT ANTIDIABETIC REGIMEN: * Metformin 500 mg BID * A1c 5.9% - 05/2017 ASSESSMENT: * Pharmacy consulted for glycemic management by Dr. Sanford d/t elevated BSG of 349 mg/dL this evening * Patient is on once daily prednisone and receiving Novolog with a correction factor only * Carb coverage is necessary, especially w/ steroids on board * Will plan to tighten goal range slightly and add a carb ratio * No basal insulin needed as fasting BSGs have been near goal range PLAN FOR INPATIENT GLYCEMIC CONTROL: * Hold outpatient oral diabetes medications * Bolus insulin * NovoLog per scale ACHS or Q6hrs while NPO * TIGHTEN Goal Range: Low 120 mg/dL - High 160 mg/dL * Correction Factor: 25 mg/dL/unit * ADD Prandial insulin per carb ratio of 1 unit per 10 grams CHO consumed
[2017-08-31] MEDS: ACETAMINOPHEN 325 MG TAB PO PRN (20:17)
[2017-08-31] MEDS: NORTRIPTYLINE HCL 25 MG CAP PO SCH (20:24)
[2017-09-01] VITALS (15 sets, daily range): BP systolic 111–145; BP diastolic 65–84; PULSE 70–87; TEMP 36.4–37.3; O2SAT 86–96
[2017-09-01] MEDS: DOXYCYCLINE IV 100 MG in DEXTROSE 5% 100ML 100 ML IV SCH ×3 (00:26→20:31)
[2017-09-01] MEDS: ACETAMINOPHEN 325 MG TAB PO PRN ×3 (01:46→20:41)
[2017-09-01] MEDS: PIPERACILL/TAZOBAC IV 4.5 GM in DEXTROSE 5% 100ML IV SCH ×3 (04:26→22:46)
[2017-09-01 05:19] LABS: HEMATOCRIT 35.7 % (37-47); HEMOGLOBIN 11.3 g/dL (12.0-16.0)
[2017-09-01 05:48] LABS: CALCIUM 10.7 mg/dl (8.5-10.1); CREATININE 0.95 mg/dl (0.60-1.20); POTASSIUM 4.3 mmol/L (3.5-5.1)
[2017-09-01] MEDS: ENOXAPARIN 40 MG/0.4 ML SYR SC SCH (06:04)
[2017-09-01] MEDS: LEVOTHYROXINE 125 MCG TAB PO SCH (06:04)
[2017-09-01] MEDS: HYDROCODONE/ACETAMIN 5/325MG TAB PO PRN ×2 (06:04→15:49)
[2017-09-01] MEDS: ALBUT/IPRATROP 3MG/0.5MG NEB 3 ML VIAL INH SCH ×4 (07:01→20:04)
--- NOTE | 2017-09-01 07:10 | DIAGNOSTIC IMAGING REPORT ---
RIGHT UPPER EXTREMITY VENOUS DOPPLER HISTORY: Right arm swelling. COMPARISON STUDY: None. FINDINGS: The right internal jugular vein is patent. There is normal flow within the right subclavian vein. There is normal flow and compressibility within the right axillary, basilic, brachial, radial, ulnar, and visualized cephalic veins. IMPRESSION: No DVT within the right upper extremity. Electronically signed by: Carlos Eduardo Nice M.D. 09/01/2017 7:08 AM Dictated Date/Time: 09/01/2017 7:08 AM
[2017-09-01] MEDS: SERTRALINE HCL 100 MG TAB PO SCH (07:35)
[2017-09-01] MEDS: ISOSORBIDE MONONITRATE 30 MG TABCR PO SCH (07:36)
[2017-09-01] MEDS: CLOPIDOGREL BISULFATE 75 MG TAB PO SCH (07:36)
[2017-09-01] MEDS: CARVEDILOL 3.125 MG TAB PO SCH ×2 (07:37→20:40)
[2017-09-01] MEDS: FUROSEMIDE INJ 40 MG in SYRINGE 0 ML IV SCH (07:37)
[2017-09-01] MEDS: LOSARTAN POTASSIUM 25 MG TAB PO SCH (07:37)
[2017-09-01] MEDS: LIDODERM (LIDOCAINE) PATCH 5% TD SCH (07:38)
[2017-09-01] MEDS: NICOTINE 21 MG/24 HR TDSY TD SCH (07:38)
[2017-09-01] MEDS: POTASSIUM CHLORIDE 20 MEQ TABCR PO SCH (07:39)
[2017-09-01] MEDS: INSULIN ASPART 100 UNITS/ML 3 ML PEN SC SCH ×4 (07:44→20:42)
[2017-09-01] MEDS ORDERED: NovoLIN-N (NPH) PER UNIT CHARGE SQ SCH (09:00)
--- NOTE | 2017-09-01 09:56 | Pharmacy Progress Note ---
Pharmacy Glycemic Short Note 2 Date of Service Sep 01, 2017. OUTPATIENT ANTIDIABETIC REGIMEN: * Metformin 500 mg BID * A1c 5.9% - 05/2017 ASSESSMENT: * 72 yr old T2DM female well controlled on metformin. * Steroid induced hyperglycemia. Patient is currently on Prednisone 30 mg PO daily. * Will add once daily dose of weight based NPH (0.3 unit/kg) while on prednisone * Loosen carb coverage since NPH has been added to cover post-prandial steroid induced BSG elevations * No basal insulin needed as fasting BSGs have been near goal range PLAN FOR INPATIENT GLYCEMIC CONTROL: * Hold outpatient oral diabetes medications * NPH 24 units SQ qAM - while on prednisone * Bolus insulin * NovoLog per scale ACHS or Q6hrs while NPO * Goal Range: Low 120 mg/dL - High 160 mg/dL * Correction Factor: 25 mg/dL/unit * Loosen Prandial insulin per carb ratio of 1 unit per 20 grams CHO consumed RECOMMENDATIONS FOR DISCHARGE: * A1c of 5.9% indicates good outpatient glycemic control * Continue metformin 500 mg PO BID on discharge. Titrate as tolerated by 500 mg/ week, to a goal of 1000 mg PO BID. Thank you.
--- NOTE | 2017-09-01 10:12 | Progress Note ---
Internal Med Progress Note Date of Service: Sep 01, 2017. Provider Documentation: SUBJECTIVE: Seen and examined at bedside States having RUE pain which is improving Had diarrhea yesterday, no BM yet today Less cough Denies nausea, vomiting, abd pain, chest pain, SOB, dizziness Requiring only 2l to maintain Sats today, plan to wean off as able OBJECTIVE: Vital Signs-as noted below Physical Exam: General Appearance:Moderately built and nourished, no apparent distress Head: normocephalic, Atraumatic Eyes: normal inspection, EOMI, PERRL Neck: supple, Trachea midline Respiratory/Chest: Decreased breath sounds, scattered rales Cardiovascular: S1, S2, No murmur Abdomen/GI:Soft, Non tender, Bowel sounds present Extremities/Musculoskelatal:normal inspection, no edema Neurologic/Psych:AAOX3, grossly no focal neurological deficits, RUE swelling improving Skin: normal color, warm Lab data as noted below. ASSESSMENT & PLAN: Patient is a 72 yr female with PMH of CAD, DM II, HTN, Gastric Bypass presented with falls. Acute on Chronic Hypoxic respiratory failure Pneumonia, LLL Volume Overload: much improved Possible HCAP Blood cultures: negative to date Nasal MRSA swab negative Continue Zosyn and Doxy day 7/ Wean off oxygen as able DC IV Lasix and started on PO Lasix (usually on 80mg am and 40mg pm) ECHO as below Continue Nebs, prednisone taper Altered mental status, Likely delirium/secondary to polypharmacy Was on muscle relaxants, excessive OTC Benadryl intake as per family in particular CT head: no acute findings MRI Brain: Chronic Small Vessel changes Neurology consulted On Nortriptyline- being tapered off (Not helpful and potential for misuse of this medication) Continue Sertraline Nortriptyline decreased to 10mg, plan to d/c in 1-2 days Has poor short term memory per daughter, may have early dementia Needs follow up closely with Neurology upon discharge Diarrhea: Stool for C.diff negative Started Probiotics monitor Chronic Pain Syndrome chronic back pain status post surgery/hx myofascial pain syndrome as per records consulted Pain Management serologies: Lyme/RPR negative Thoracic spine xray: possible midthoracic compression fracture Lumbar spine xray: degenerative joint disease Cervical/Thoracic/Lumbar Spine MRI noted: (+) compression Fx (+) cervical spine stenosis No neurologic deficit noted added Prednisone for pain control: on taper [place] increased to TID, monitor closely avoid Gabapentin for high risk of alteration in mental status Prior hospitalist with Dr. Hidalgo, may resume Hydrocodone as long as patient is admitted/in Rehab/SNF Ortho Spine consulted: no plan for surgery at this time, close outpatient follow up Pain is controlled, monitor S/P Falls likely secondary to polypharmacy, deconditioning PT/OT Left Rib anterior 6th Fracture: Incentive Spirometry R elbow Xray to r/o Fracture: negative Needs Rehab/SNF placement CAD S/P Stent continue on coreg, Imdur, losartan and plavix. HTN stable DM II on oral meds, well controlled as of recent outpatient HgA1c of 5.9 in May 2017. Continue ISS Ongoing tobacco abuse counselling Nicotine patch DVT Px: Lovenox SQ Disposition: lives alone at home PT/OT patient agreeable with Rehab daughter Jessica requesting daily update PROCEDURES: ECHO: * Ejection Fraction = 55-60%. * There is mild concentric left ventricular hypertrophy. * The left coronary aortic valve cusp appears focally calcified with reduced mobility. * Aortic valve sclerosis moderate, without significant aortic valvular stenosis. * There is trace tricuspid regurgitation. * The estimated systolic PAP is 36mmHg. * Grade I diastolic dysfunction, (abnormal relaxation pattern). Vital Signs: Date Time Temp Pulse Resp B/P (MAP) Pulse Ox O2 Delivery O2 Flow Rate FiO2 09/01/17 07:32 36.4 71 16 125/75 (92) 96 Nasal Cannula 3.0 09/01/17 07:01 71 18 96 Nasal Cannula 2.0 09/01/17 04:16 37.3 75 16 145/84 (104) 94 3.0 09/01/17 04:00 Nasal Cannula 09/01/17 00:11 36.6 75 16 119/69 (86) 93 3.0 08/31/17 23:59 Nasal Cannula 08/31/17 20:14 82 18 92 Nasal Cannula 3.0 08/31/17 20:00 Nasal Cannula 08/31/17 19:48 36.8 78 20 121/73 (89) 92 Nasal Cannula 3.0 08/31/17 16:00 Nasal Cannula 3.0 08/31/17 15:46 36.7 79 20 108/66 (80) 93 Nasal Cannula 3.0 08/31/17 15:18 74 18 94 Nasal Cannula 5.0 08/31/17 12:39 36.6 84 20 121/80 (94) 92 Nasal Cannula 5.0 08/31/17 12:01 92 Room Air 5.0 08/31/17 11:20 71 20 93 Nasal Cannula 5.0 Lab Results: Results Past 24 Hours Test 08/31/17 11:43 08/31/17 15:57 08/31/17 20:20 09/01/17 05:02 Range/Units Bedside Glucose 212 349 176 70-90 mg/dl Hemoglobin 11.3 12.0-16.0 g/dL Hematocrit 35.7 37-47 % Sodium Level 134 136-145 mmol/L Potassium Level 4.3 3.5-5.1 mmol/L Chloride Level 97 98-107 mmol/L Carbon Dioxide Level 31 21-32 mmol/L Anion Gap 6.0 3-11 mmol/L Blood Urea Nitrogen 22 7-18 mg/dl Creatinine 0.95 0.60-1.20 mg/dl Est Creatinine Clear Calc Drug Dose 55.8 ml/min Estimated GFR () 69.8 Estimated GFR (Non- 60.3 BUN/Creatinine Ratio 23.0 10-20 Random Glucose 122 70-99 mg/dl Calcium Level 10.7 8.5-10.1 mg/dl Magnesium Level 1.8 1.8-2.4 mg/dl Test 09/01/17 06:21 Range/Units Bedside Glucose 118 70-90 mg/dl Microbiology Results 08/31/17 C.difficile Toxin B Gene (PCR) - Final, Complete No C. difficile toxin B gene detected
[2017-09-01] MEDS: LACTOBACILLUS ACIDOPHILUS (FLORANEX) TAB PO SCH ×2 (12:12→17:03)
[2017-09-01] MEDS: LORATADINE 10 MG TAB PO PRN (16:46)
[2017-09-01] MEDS ORDERED: FUROSEMIDE 40 MG TAB PO SCH (17:00)
[2017-09-01] MEDS ORDERED: NORTRIPTYLINE HCL 10 MG CAP PO SCH (21:00)
[2017-09-02] MEDS: HYDROCODONE/ACETAMIN 5/325MG TAB PO PRN (00:14)
[2017-09-02 00:15] VITALS: BP 120/72; PULSE 72; TEMP 36.7; O2SAT 93
[2017-09-02 04:04] VITALS: BP 129/72; PULSE 73; TEMP 36.5; O2SAT 92
[2017-09-02] MEDS: LEVOTHYROXINE 125 MCG TAB PO SCH (06:00)
[2017-09-02] MEDS: ENOXAPARIN 40 MG/0.4 ML SYR SC SCH (06:01)
[2017-09-02 06:48] LABS: CALCIUM 10.8 mg/dl (8.5-10.1); POTASSIUM 3.9 mmol/L (3.5-5.1)
[2017-09-02] MEDS: ACETAMINOPHEN 325 MG TAB PO PRN (07:00)
[2017-09-02] MEDS: ALBUT/IPRATROP 3MG/0.5MG NEB 3 ML VIAL INH SCH ×2 (07:08→11:17)
[2017-09-02] MEDS: CLOPIDOGREL BISULFATE 75 MG TAB PO SCH (08:15)
[2017-09-02] MEDS: SERTRALINE HCL 100 MG TAB PO SCH (08:16)
[2017-09-02] MEDS: ISOSORBIDE MONONITRATE 30 MG TABCR PO SCH (08:16)
[2017-09-02] MEDS: LACTOBACILLUS ACIDOPHILUS (FLORANEX) TAB PO SCH ×2 (08:17→12:00)
[2017-09-02] MEDS: LOSARTAN POTASSIUM 25 MG TAB PO SCH (08:17)
[2017-09-02] MEDS: CARVEDILOL 3.125 MG TAB PO SCH (08:17)
[2017-09-02] MEDS: LIDODERM (LIDOCAINE) PATCH 5% TD SCH (08:18)
[2017-09-02] MEDS: NICOTINE 21 MG/24 HR TDSY TD SCH (08:18)
[2017-09-02] MEDS: INSULIN ASPART 100 UNITS/ML 3 ML PEN SC SCH ×2 (08:24→12:05)
[2017-09-02 08:36] VITALS: BP 127/80; PULSE 75; TEMP 37; O2SAT 94
[2017-09-02] MEDS ORDERED: NovoLIN-N (NPH) PER UNIT CHARGE SQ SCH (09:00)
[2017-09-02] MEDS ORDERED: FUROSEMIDE 40 MG TAB PO SCH (09:00)
--- NOTE | 2017-09-02 10:26 | Progress Note ---
Internal Med Progress Note Date of Service: Sep 02, 2017. Provider Documentation: SUBJECTIVE: Seen and examined at bedside Feels well today Eager to get discharged Less RUE pain No BM today diarrhea resolved Denies chest pain, SOB, dizziness OBJECTIVE: Vital Signs-as noted below Physical Exam: General Appearance:Moderately built and nourished, no apparent distress Head: normocephalic, Atraumatic Eyes: normal inspection, EOMI, PERRL Neck: supple, Trachea midline Respiratory/Chest: Decreased breath sounds, scattered rales Cardiovascular: S1, S2, No murmur Abdomen/GI:Soft, Non tender, Bowel sounds present Extremities/Musculoskelatal:normal inspection, no edema Neurologic/Psych:AAOX3, grossly no focal neurological deficits, RUE swelling improving Skin: normal color, warm Lab data as noted below. ASSESSMENT & PLAN: Patient is a 72 yr female with PMH of CAD, DM II, HTN, Gastric Bypass presented with falls. Acute on Chronic Hypoxic respiratory failure Pneumonia, LLL Volume Overload: much improved Possible HCAP Blood cultures: negative to date Nasal MRSA swab negative Continue Zosyn and Doxy day 01/22 Wean off oxygen as able DC IV Lasix and started on PO Lasix (usually on 80mg am and 40mg pm) ECHO as below Continue Nebs, prednisone taper Altered mental status, Likely delirium/secondary to polypharmacy Was on muscle relaxants, excessive OTC Benadryl intake as per family in particular CT head: no acute findings MRI Brain: Chronic Small Vessel changes Neurology consulted On Nortriptyline- being tapered off (Not helpful and potential for misuse of this medication) Continue Sertraline Nortriptyline decreased to 10mg, plan to d/c today Has poor short term memory per daughter, may have early dementia Needs follow up closely with Neurology upon discharge Diarrhea: Resolved Stool for C.diff negative Continue Probiotics monitor Chronic Pain Syndrome chronic back pain status post surgery/hx myofascial pain syndrome as per records consulted Pain Management serologies: Lyme/RPR negative Thoracic spine xray: possible midthoracic compression fracture Lumbar spine xray: degenerative joint disease Cervical/Thoracic/Lumbar Spine MRI noted: (+) compression Fx (+) cervical spine stenosis No neurologic deficit noted added Prednisone for pain control: on taper [place] increased to TID, monitor closely avoid Gabapentin for high risk of alteration in mental status Prior hospitalist with Dr. Hidalgo, may resume Hydrocodone as long as patient is admitted/in Rehab/SNF Ortho Spine consulted: no plan for surgery at this time, close outpatient follow up Pain is controlled, monitor S/P Falls likely secondary to polypharmacy, deconditioning PT/OT Left Rib anterior 6th Fracture: Incentive Spirometry R elbow Xray to r/o Fracture: negative Needs Rehab/SNF placement CAD S/P Stent continue on coreg, Imdur, losartan and plavix. HTN stable DM II on oral meds, well controlled as of recent outpatient HgA1c of 5.9 in May 2017. Continue ISS Ongoing tobacco abuse counselling Nicotine patch DVT Px: Lovenox SQ Disposition: Plan to discharge to rehab facility today Follow up with 1 week after being discharged from Rehab facility Follow up with Orthopedic surgeon as needed Seek immediate medical attention if your symptoms reoccur or worsen PROCEDURES: ECHO: * Ejection Fraction = 55-60%. * There is mild concentric left ventricular hypertrophy. * The left coronary aortic valve cusp appears focally calcified with reduced mobility. * Aortic valve sclerosis moderate, without significant aortic valvular stenosis. * There is trace tricuspid regurgitation. * The estimated systolic PAP is 36mmHg. * Grade I diastolic dysfunction, (abnormal relaxation pattern). Vital Signs: Date Time Temp Pulse Resp B/P (MAP) Pulse Ox O2 Delivery O2 Flow Rate FiO2 09/02/17 11:19 74 18 80 Room Air 09/02/17 08:36 37.0 75 20 127/80 (96) 94 Nasal Cannula 2.0 09/02/17 08:00 Nasal Cannula 2.0 09/02/17 04:04 36.5 73 19 129/72 (91) 92 Nasal Cannula 2.0 09/02/17 04:00 Nasal Cannula 2.0 09/02/17 00:15 36.7 72 19 120/72 (88) 93 Nasal Cannula 2.0 09/02/17 00:00 Nasal Cannula 2.0 09/01/17 20:27 80 18 86 Room Air 09/01/17 20:21 96 Nasal Cannula 2.0 09/01/17 20:00 36.8 87 20 125/75 (92) 88 Room Air 09/01/17 20:00 Nasal Cannula 2.0 09/01/17 16:00 90 Room Air 09/01/17 15:41 36.8 82 18 111/65 (80) 89 Room Air 09/01/17 14:35 79 18 90 Room Air Lab Results: Results Past 24 Hours Test 09/01/17 16:26 09/01/17 20:28 09/02/17 06:05 09/02/17 11:15 Range/Units Bedside Glucose 188 130 299 70-90 mg/dl Sodium Level 136 136-145 mmol/L Potassium Level 3.9 3.5-5.1 mmol/L Chloride Level 96 98-107 mmol/L Carbon Dioxide Level 34 21-32 mmol/L Anion Gap 5.0 3-11 mmol/L Blood Urea Nitrogen 22 7-18 mg/dl Creatinine 1.00 0.60-1.20 mg/dl Est Creatinine Clear Calc Drug Dose 53.0 ml/min Estimated GFR () 65.6 Estimated GFR (Non- 56.6 BUN/Creatinine Ratio 21.6 10-20 Random Glucose 75 70-99 mg/dl Calcium Level 10.8 8.5-10.1 mg/dl Magnesium Level 2.0 1.8-2.4 mg/dl Test 09/02/17 11:16 Range/Units Bedside Glucose 154 70-90 mg/dl
[2017-09-02 11:19] VITALS: PULSE 74; O2SAT 80
[2017-09-02] MEDS ORDERED: LCTX PO (12:49)
[2017-09-02] MEDS ORDERED: LDDP5 TD (12:49)
[2017-09-02] MEDS ORDERED: PRED10TA PO (12:54)
[2017-09-02] MEDS ORDERED: HYDR-5688 PO (12:54)
--- NOTE | 2017-09-02 12:58 | Discharge Summary ---
Discharge Summary Date of Service Sep 02, 2017. Discharge Summary Admission Date: Aug 24, 2017 at 14:47 Discharge Date: Sep 02, 2017 Discharge Disposition: Rehab Principal Diagnosis: Pneumonia, Chronic Pain syndrome, Altered mental status likely secondary to polypharmacy Procedures: CT head: 1. No acute intracranial findings. 2. No calvarial fracture. MRI Brain: 1. Allowing for motion artifact, no acute intracranial pathology. No abnormal enhancement. 2. Chronic small vessel ischemic change. MRI L-spine: 1. Postsurgical changes of posterior fusion from L2 to S1 with laminectomies of L3-L5. No gross evidence of hardware complication. Allowing for extensive susceptibility artifact at the operative levels, no significant neural foraminal or spinal canal narrowing. 2. 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 3. Circumferential effacement of the thecal sac at L1-2 secondary to a congenitally narrow spinal canal and facet arthropathy. However, no complete effacement of CSF. No convincing evidence of spinal cord impingement. Mild bilateral neural foraminal narrowing at this level also noted. 4. Extensive multilevel degenerative change. The report will be called/faxed according to standard departmental protocol. MRI C-spine: 1. In retrospect, the MR of the thoracic spine performed today in combination with the findings on cervical spine CT from 08/21/2017 are consistent with acute mild compression deformity of T2 (less than 25% anterior vertebral body height loss). 2. Multilevel degenerative changes in the cervical spine with multilevel spinal canal stenosis. Spinal cord impingement may be present. Stenosis is most severe at C4-5, further detailed above. 3. Varying degrees of neural foraminal narrowing most severe at C4-5. 4. Bony edema at the endplates of C3-4 and C5-6, likely on a degenerative basis. The report will be called/faxed according to standard departmental protocol. MRI T-spine: 1. Focal disc osteophyte complex at T7-8 with effacement of the right paracentral thecal sac and right lateral recess at this level. Resultant contouring of the spinal cord. No convincing evidence of spinal cord impingement or spinal cord edema. 2. Multilevel degenerative further detailed above. 3. Neural foraminal narrowing at T10-11. 4. Moderate right and small left pleural effusions. 5. Posterior lumbar fusion hardware. 6. Bony edema at the endplates at several levels as above and L1 likely on a degenerative basis. ECHO: * Ejection Fraction = 55-60%. * There is mild concentric left ventricular hypertrophy. * The left coronary aortic valve cusp appears focally calcified with reduced mobility. * Aortic valve sclerosis moderate, without significant aortic valvular stenosis. * There is trace tricuspid regurgitation. * The estimated systolic PAP is 36mmHg. * Grade I diastolic dysfunction, (abnormal relaxation pattern). Consultations: Neurology, Psychiatry, Orthopedics Pending Studies/Follow-Up: Follow up with 1 week after being discharged from Rehab facility Follow up with Orthopedic surgeon as needed if your back pain gets worsen Follow up with your Neurologist as advised Your Nortriptyline is discontinued Complete the prednisone course as prescribed. (Start taking 20 mg daily for 3 days , then 10mg daily for 3 days and stop) Seek immediate medical attention if your symptoms reoccur or worsen Medication Reconciliation New Medications: Prednisone Tab (Prednisone) 10 Mg Tab 10 MG PO UD for 5 Days, #7 TAB Start taking prednsione 20mg daily for 2 days, then 10mg daily for 3 days and stop Hydrocodone/Acetaminophen 5MG/325MG ([place] 5MG/325MG) Tab 1 TAB PO Q8H PRN for Pain for 5 Days, #15 TAB PRN PAIN Lactobacillus Acidophilus (Floranex) 1 Tab Tab 4 TAB PO TIDM for 7 Days, #21 TAB Continued Medications: Acetaminophen (Tylenol) 500 Mg Tab 1000 MG PO Q8 PRN for Pain, TAB Albuterol Hfa (Ventolin Hfa) 200 Puffs/42473 Mcg Aers 2-4 PUFFS INH Q6H PRN for Shortness of Breath, #1 INHALER Atorvastatin (Lipitor) 80 Mg Tab 80 MG PO DAILY, TAB Carvedilol (Coreg) 3.125 Mg Tab 3.125 MG PO BID, TAB Clopidogrel (Plavix) 75 Mg Tab 75 MG PO DAILY, TAB Cyanocobalamin (Vitamin B12) 3,000 Mcg/Ml Alex 1000 MCG IM MONTHLY Diphenhydramine Hcl (Benadryl Allergy) 25 Mg Cap 1 CAP PO HS PRN for Itching for 30 Days, #30 CAP Ergocalciferol (Vitamin D 09229 Unit) 50,000 Unit Cap 57587 UNIT PO 2XWK, CAP Mondays and Furosemide (Lasix) 40 Mg Tab 80 MG PO QAM, TAB Furosemide (Lasix) 40 Mg Tab 40 MG PO QPM, TAB Isosorbide Mononitrate Ext Rel (Imdur Ext Rel) 30 Mg Tabcr 1 TAB PO QAM, TAB Levothyroxine Sodium (Levothyroxine Sodium) 125 Mcg Tab 1 TAB PO DAILY Losartan Potassium (Cozaar) 25 Mg Tab 25 MG PO DAILY, TAB Metformin Hcl (Glucophage) 500 Mg Tab 500 MG PO BID, TAB Nitroglycerin (Nitrostat) 0.4 Mg Sub 0.4 MG UT PRN, BTL Sertraline (Zoloft) 100 Mg Tab 200 MG PO DAILY, TAB Discontinued Medications: Nortriptyline (Pamelor) 25 Mg Cap 75 MG PO HS, CAP Admission Information HPI (per Admitting provider): CHIEF COMPLAINT: Fall. HISTORY OF PRESENT ILLNESS: History obtained from patient, family, and records. Patient is a fair historian. Medical history significant for CAD, status post stenting, PVD, gastric bypass, hypertension, DM2 on oral meds, ongoing tobacco abuse, chronic back pain sp surgery , myofascial pain syndrome as per records, LAMBERT on CPAP, primary hyperparathyroidism status post surgery, ongoing tobacco abuse. Recent confinement in 2012 for back surgery under Orthopedic service. Patient chronic back pain unimproved after surgery. Been off Vicodin for more than a year now since former PCP left [facility]. As per patient, her 2 subsequent family doctors were not comfortable prescribing Vicodin prescription; hx terminated JAVIER as per records. Patient referred to [facility]. Prescribed nortriptyline, muscle relaxants somewhat working. Patient's family have had increased worries in the last month w/ patient having episodic confusion, forgetfulness, sleepiness from time to time, visual hallucinations, recurrent falls. No syncope/witnessed syncopal events as per patient/family. Patient feels that she is just going to fall down. No bowel, no bladder incontinence. No seizures, no lightheadedness. Patient's family thinks she is taking more OTC Benadryl than she should even when she is not itching. Tonight, the patient had another fall, hit her head, having pain all over, pain on moving left upper extremity. No chest pain, no shortness of breath, no syncope, no LOC. Patient denies dysuria symptoms. Physical Exam (per Admitting): VITAL SIGNS: Blood pressure noted to be 112/88, pulse rate 80, RR 18, temp 36.7, sats 95 on room air. GENERAL: Noted to be obese, uncomfortable, slightly hard of hearing, episodic lethargy. SKIN: Normal color. Warm. HEENT: Contusion, right supraorbital area . [place] palpebral conjunctivae.No ptosis. Dry mucosa. NECK: Supple, nontender. A healed incisional scar. CHEST: Clear to auscultation. No tenderness. minimal tenderness on the left chest wall. HEART: Regular rate and rhythm, no murmur. ABDOMEN: Soft, nontender. EXTREMITIES: No edema. No gross deformities. Tenderness LUE NEUROLOGIC: Coherent, episodic lethargy. Otherwise, no gross focality. Gait and stance not assessed. Hospital Course Patient is a 72 yr female with PMH of CAD, DM II, HTN, Gastric Bypass presented with falls. Acute on Chronic Hypoxic respiratory failure Pneumonia, LLL Volume Overload: much improved Possible HCAP Blood cultures: negative to date Nasal MRSA swab negative Continue Zosyn and Doxy day 01/22 Wean off oxygen as able DC IV Lasix and started on PO Lasix (usually on 80mg am and 40mg pm) ECHO as below Continue Nebs, prednisone taper Altered mental status, Likely delirium/secondary to polypharmacy Was on muscle relaxants, excessive OTC Benadryl intake as per family in particular CT head: no acute findings MRI Brain: Chronic Small Vessel changes Neurology consulted On Nortriptyline- being tapered off (Not helpful and potential for misuse of this medication) Continue Sertraline Nortriptyline decreased to 10mg, plan to d/c today Has poor short term memory per daughter, may have early dementia Needs follow up closely with Neurology upon discharge Diarrhea: Resolved Stool for C.diff negative Continue Probiotics monitor Chronic Pain Syndrome chronic back pain status post surgery/hx myofascial pain syndrome as per records consulted Pain Management serologies: Lyme/RPR negative Thoracic spine xray: possible midthoracic compression fracture Lumbar spine xray: degenerative joint disease Cervical/Thoracic/Lumbar Spine MRI noted: (+) compression Fx (+) cervical spine stenosis No neurologic deficit noted added Prednisone for pain control: on taper [place] increased to TID, monitor closely avoid Gabapentin for high risk of alteration in mental status Prior hospitalist with Dr. Hidalgo, may resume Hydrocodone as long as patient is admitted/in Rehab/SNF Ortho Spine consulted: no plan for surgery at this time, close outpatient follow up Pain is controlled, monitor S/P Falls likely secondary to polypharmacy, deconditioning PT/OT Left Rib anterior 6th Fracture: Incentive Spirometry R elbow Xray to r/o Fracture: negative Needs Rehab/SNF placement CAD S/P Stent continue on coreg, Imdur, losartan and plavix. HTN stable DM II on oral meds, well controlled as of recent outpatient HgA1c of 5.9 in May 2017. Continue ISS Ongoing tobacco abuse counselling Nicotine patch DVT Px: Lovenox SQ Disposition: Plan to discharge to rehab facility today Follow up with 1 week after being discharged from Rehab facility Follow up with Orthopedic surgeon as needed Follow up with your Neurologist as advised Seek immediate medical attention if your symptoms reoccur or worsen PROCEDURES: ECHO: * Ejection Fraction = 55-60%. * There is mild concentric left ventricular hypertrophy. * The left coronary aortic valve cusp appears focally calcified with reduced mobility. * Aortic valve sclerosis moderate, without significant aortic valvular stenosis. * There is trace tricuspid regurgitation. * The estimated systolic PAP is 36mmHg. * Grade I diastolic dysfunction, (abnormal relaxation pattern). Total time spent on discharge =35 minutes This includes examination of the patient, discharge planning, medication reconciliation, and communication with other providers. Discharge Instructions Discharge Instructions Date of Service Sep 02, 2017. Admission Reason for Admission: Concussion Discharge Discharge Diagnosis / Problem: Pneumonia, Chronic Pain syndrome, Altered mental status Discharge Goals Goal(s): Decrease discomfort, Improve function Activity Recommendations Activity Limitations: resume your previous activity Exercise/Sports Limitations: as tolerated . Instructions / Follow-Up Instructions / Follow-Up Follow up with 1 week after being discharged from Rehab facility Follow up with Orthopedic surgeon as needed if your back pain gets worsen Your Nortriptyline is discontinued Complete the prednisone course as prescribed. (Start taking 20 mg daily for 3 days , then 10mg daily for 3 days and stop) Seek immediate medical attention if your symptoms reoccur or worsen Current Hospital Diet Patient's current hospital diet: Diabetes Type 2 Diet, AHA Diet (Heart Healthy) Discharge Diet Recommended Diet: AHA Diet (Heart Healthy), Diabetes Type 2 Diet Pending Studies Studies pending at discharge: no Medical Emergencies . Who to Call and When: Medical Emergencies: If at any time you feel your situation is an emergency, please call 911 immediately. . Non-Emergent Contact Non-Emergency issues call your: Primary Care Provider, Surgeon Call Non-Emergent contact if: you have a fever, your pain is not controlled, your pain is worsening, your pain is unusual for you, your pain is concerning you, you have any medication questions . . "Provider Documentation" section prepared by Damoin Sanford. . VTE Core Measure Inpt VTE Proph given/why not?: Enoxaparin (Lovenox)SQ
[2017-09-02 13:26] VITALS: BP 127/80; PULSE 74; TEMP 37; O2SAT 90
== END 2017-09-02 15:22 | DRG 193 ==
LOC: EDBD 19:55 → C.EDB 19:56 → C.2T 23:49 → ENRESERV 23:58 → C.MS2W 08-24 12:18 → OBSVTOIN 08-24 14:47 → ENRESERV 08-25 22:40 → C.2T 08-26 00:12 → ENRESERV 09-02 10:43 → CANBEDREQ 09-02 13:55
PROVIDERS: ADMIT Internal Medicine; ATTEND Internal Medicine
DX: J18.9 Pneumonia, unspecified organism (principal); G92 Toxic encephalopathy; J96.21 Acute and chronic respiratory failure with hypoxia; S22.32XA Fracture of one rib, left side, initial encounter for closed fracture; M54.9 Dorsalgia, unspecified; T44.3X5A Adverse effect of other parasympatholytics [anticholinergics and antimuscarinics] and spasmolytics, initial encounter; T45.0X5A Adverse effect of antiallergic and antiemetic drugs, initial encounter; I71.4 Abdominal aortic aneurysm, without rupture; F17.200 Nicotine dependence, unspecified, uncomplicated; S09.90XA Unspecified injury of head, initial encounter; I25.10 Atherosclerotic heart disease of native coronary artery without angina pectoris; Z95.818 Presence of other cardiac implants and grafts; Z98.84 Bariatric surgery status; I10 Essential (primary) hypertension; G89.4 Chronic pain syndrome; G47.33 Obstructive sleep apnea (adult) (pediatric); E11.42 Type 2 diabetes mellitus with diabetic polyneuropathy; M96.1 Postlaminectomy syndrome, not elsewhere classified; Z91.14 Patient's other noncompliance with medication regimen; Z88.8 Allergy status to other drugs, medicaments and biological substances; Y92.019 Unspecified place in single-family (private) house as the place of occurrence of the external cause; W18.30XA Fall on same level, unspecified, initial encounter; Z88.6 Allergy status to analgesic agent

== ENCOUNTER 2019-05-26 18:39 | Inpatient (IN) ==
[2019-05-26] MEDS ORDERED: ALBUT/IPRATROP 3MG/0.5MG NEB 3 ML VIAL NEB STA (18:59)
[2019-05-26] MEDS ORDERED: SODIUM CHLORIDE 0.9% 500 ML IV SCH (19:00)
--- NOTE | 2019-05-26 19:15 | Emergency Department Note ---
Entered by Roya Hidalgo acting as a scribe for Wilber Briceno MD History of Present Illness General Chief complaint: Abnormal Labs/Diagnostic Testing Stated complaint: POTASSIUM LEVEL 6.8 Time Seen by Provider: 05/26/19 18:53 Source: patient and family (daughter) Mode of arrival: wheelchair Limitations: no limitations History of Present Illness Provider complaint: Hyperkalemia Onset (ago): day(s) (a few days ago) Pain Consistency: + other (worsening) Quality: + other (hyperkalemia) Associated symptoms: + cough (wet) and + other (Additional symptoms: head cold, wheezing. Denies: pain, urinary symptoms); no fever/chills, no nausea/vomiting and no shortness of breath Treatments prior to arrival: none The patient is a 73 year old female with a history of CHF, AL, lymphedema, aneurysm, hypothyroidism, Raynauds syndrome without gangrene, and arthritis and no history of renal disease who presents to the Emergency Room with complaints of worsening hyperkalemia starting a few days ago. Per daughter, the patient's potassium level has been running high and that it was even higher today. She states that the patient's potassium was 6.8 today. She notes that the patient is not on dialysis and does not have any kidney problems. The patient also complains of a wet cough and a head cold, and her daughter adds that Dr. Fallon noticed wheezing during the patient's most recent PCP appointment. The daughter indicates that the patient has an inhaler at home but does not use it. The patient otherwise denies any pain, vomiting, fevers, urinary symptoms, and shortness of breath. 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 She reports that the patient is currently on Plavix and a diuretic but not an antibiotic. Home Medications Home Medications Medication Instructions Recorded Confirmed Type acetaminophen 500 mg capsule 1,000 mg PO Q8 PRN cap 02/02/19 05/26/19 History albuterol sulfate HFA 90 2 puffs INH Q6H PRN 02/02/19 05/26/19 History mcg/actuation aerosol inhaler atorvastatin 80 mg tablet 80 mg PO DAILY 02/02/19 05/26/19 History carvedilol 3.125 mg tablet 3.125 mg PO BID 02/02/19 05/26/19 History cholecalciferol (vitamin D3) 50,000 units PO 2XWK cap 02/02/19 05/26/19 History 50,000 unit capsule clopidogrel 75 mg tablet 75 mg PO DAILY 02/02/19 05/26/19 History cyanocobalamin (vit B-12) 1,000 1,000 mcg IM MONTHLY ml 02/02/19 05/26/19 Histo ry mcg/mL injection solution diphenhydramine 25 mg tablet 25 mg PO DAILY PRN tab 02/02/19 05/26/19 History furosemide 40 mg tablet 80 mg PO DAILY tab 02/02/19 05/26/19 History hydrocodone 5 mg-acetaminophen 325 1 tab PO Q8H PRN tab 02/02/19 05/26/19 History mg tablet isosorbide mononitrate ER 30 mg 30 mg PO DAILY 02/02/19 05/26/19 History tablet,extended release 24 hr levothyroxine 125 mcg capsule 125 mcg PO DAILY 02/02/19 05/26/19 History nitroglycerin 0.4 mg sublingual 0.4 mg SL Q5M PRN 02/02/19 05/26/19 History tablet sertraline 100 mg tablet 100 mg PO DAILY 02/02/19 05/26/19 History Allergies Allergy/AdvReac Type Severity Reaction Status Date / Time adhesive Allergy Severe HIVES Verified 05/26/19 21:10 aspirin Allergy Intermediate HIVES Verified 05/26/19 21:10 NSAIDS (Non-Steroidal Allergy Intermediate HIVES Verified 05/26/19 21:10 Anti-Inflamma Past Med/Surg History Medical History Aneurysm (Chronic) Angina effort (Chronic) Arthritis (Chronic) CHF (congestive heart failure) (Chronic) Hernia (Chronic) Hypothyroid (Chronic) Lymphedema (Chronic) Myocardial infarction (Chronic) Past heart attack (Chronic) Raynaud's syndrome without gangrene (Chronic) Surgical History S/P angioplasty with stent (Chronic) S/P appendectomy, follow-up exam (Chronic) S/P gastric bypass (Chronic) S/P hysterectomy (Chronic) S/P thyroidectomy (Chronic) S/P tonsillectomy (Chronic) Social History Preferred Language: Estonian Communication Ability: Effective Visual Impairment: Limited Hearing Ability: Hard of Hearing Beliefs That Will Affect Care: None marital status: / Current Living Situation: Alone current occupational status: retired and disabled Feels Safe at Home: Yes Smoking Status: Current every day smoker Tobacco Type: cigarettes ; packs per day: 1 ; Hx Alcohol Use: No Hx Substance Use: No Review of Systems See HPI for pertinent positives & negatives. and A total of 10 systems reviewed and were otherwise negative Physical Exam Vital Signs Vital Signs - 24 hr 05/26/19 18:48 05/26/19 20:04 05/26/19 20:19 Temperature 36.7 C Temperature Source Oral Sepsis Recent Fever Within 48 Hours No Sepsis New/Unexplained Change in Mental Status No Sepsis Action Taken by Nursing No Action Required Pulse Rate 69 Pulse Rate [Left Finger] 67 63 Pulse Rhythm Regular Pulse Rhythm [Left Finger] Regular Pulse Strength Normal Respiratory Rate 20 17 18 Respiratory Effort / Characteristics Non-Labored Spontaneous Non-Labored Non-Labored Spontaneous Respiratory Depth Normal Normal Respiratory Pattern Regular Regular Blood Pressure 148/79 H Blood Pressure [Left Arm] 156/88 H Blood Pressure Mean 102 Blood Pressure Mean [Left Arm] 110 Blood Pressure Position Sitting Pulse Oximetry 97 97 97 Oxygen Delivery Method Room Air Room Air Room Air 05/26/19 21:00 05/26/19 22:27 Temperature Temperature Source Sepsis Recent Fever Within 48 Hours Sepsis New/Unexplained Change in Mental Status Sepsis Action Taken by Nursing Pulse Rate Pulse Rate [Left Finger] 66 81 Pulse Rhythm Pulse Rhythm [Left Finger] Regular Regular Pulse Strength Respiratory Rate 16 20 Respiratory Effort / Characteristics Non-Labored Non-Labored Respiratory Depth Normal Normal Respiratory Pattern Regular Regular Blood Pressure Blood Pressure [Left Arm] 159/92 H 162/99 H Blood Pressure Mean Blood Pressure Mean [Left Arm] 114 120 Blood Pressure Position Pulse Oximetry 97 99 Oxygen Delivery Method Room Air Room Air GENERAL: Patient is in no acute distress. HEENT: No acute trauma, normocephalic atraumatic, mucous membranes moist, no nasal congestion, no scleral icterus. NECK: No stridor, no adenopathy, no meningismus, trachea is midline. LUNGS: Wheezing bilaterally. No rhonchi. No respiratory distress. Dry cough not ed. HEART: 2/6 systolic murmur. Regular rate and rhythm. ABDOMEN: Soft, nontender, bowel sounds positive, no hernias, no peritonitis. EXTREMITIES: No cyanosis or edema, full range of motion of all the joints without pain or difficulty, no signs for acute trauma. NEUROLOGIC: Oriented x 3, no acute motor or sensory deficits, no focal weakness. SKIN: No rash, no jaundice, no diaphoresis. Course 1853: The patient was evaluated in room C3, and a complete history and physical examination were performed. 2113: On reevaluation, the patient is resting. I discussed the results and findings with her and her family. The patient verbalized agreement of the treatment plan. 2121: I reviewed the patient's case with Dr. Guthrie - Rj Morgan. Dr. Guthrie will evaluate the patient for further management. Consultations Consultation #1: I reviewed the patient's case with Dr. Guthrie - Rj Morgan. Dr. Guthrie will evaluate the patient for further management. Time: 21:22 Administered Medications Discontinued Medications Hydrocodone Bitart/Acetaminophen ([place] 5/325) 1 tab PO NOW STA Stop: 05/26/19 22:04 Last Admin: 05/26/19 22:09 Dose: 1 tab Documented by: [id number] Albuterol (Duoneb) 3 ml NEB NOW STA Stop: 05/26/19 19:00 Last Admin: 05/26/19 20:15 Dose: 3 ml Documented by: [id number] Dextrose (Dextrose 50%) 50 ml IV NOW ONE Stop: 05/26/19 21:28 Last Admin: 05/26/19 22:11 Dose: 50 ml Documented by: [id number] Sodium Chloride (Nss) 500 mls @ 999 mls/hr IV .Q31M SUZANNE Stop: 05/26/19 19:30 Last Infusion: 05/26/19 20:41 Dose: 0 mls/hr Documented by: [id number] Admin: 05/26/19 20:04 Dose: 999 mls/hr Documented by: [id number] Sodium Chloride (Nss 1000ml) 500 mls @ 999 mls/hr IV .Q31M ONE Stop: 05/26/19 20:52 Last Infusion: 05/26/19 21:16 Dose: 0 mls/hr Documented by: [id number] Admin: 05/26/19 20:25 Dose: 999 mls/hr Documented by: [id number] Insulin Human Regular 10 units (/ Syringe) 10 mls @ 0 mls/hr IV ONE STA Stop: 05/26/19 21:43 Last Admin: 05/26/19 22:12 Dose: 10 mls/hr Documented by: [id number] Cosigned by: [id number] Sodium Bicarbonate (Sodium Bicarbonate 8.4%) 50 meq IV NOW STA Stop: 05/26/19 21:37 Last Admin: 05/26/19 22:11 Dose: 50 meq Documented by: [id number] Medical Decision Making Differential Diagnosis Differential diagnosis includes: falsely elevated potassium, hyperkalemia, renal failure, bronchitis, pneumonia, dysrhythmia, CHF, UTI, dehydration, medication reaction. Medical Records Attestation: I reviewed the patient's medical records. Home Medications Current Medication List: was personally reviewed by me Laboratory Data Attestation: I reviewed the patient's lab results. Result diagrams: 05/26/19 19:26 05/26/19 19:26 Lab Results 05/26/19 05/26/19 05/26/19 Range/Units 19:20 19:26 19:26 WBC 5.33 (4.8-10.8) K/uL RBC 4.05 L (4.2-5.4) M/uL Hgb 13.3 (12.0-16.0) g/dL Hct 42.1 (37-47) % MCV 104.0 H (80-100) fL MCH 32.8 (25-34) pg MCHC 31.6 L (32-36) g/dL RDW Std Deviation 56.4 H (36.4-46.3) fL RDW Coeff of Richar 14.7 H (11.5-14.5) % Plt Count 158 (130-400) K/uL MPV 10.7 H (7.4-10.4) fL Immature Gran % (Auto) 0.2 % Neut % (Auto) 48.9 % Lymph % (Auto) 39.4 % [place] % (Auto) 9.8 % Eos % (Auto) 1.7 % Baso % (Auto) 0.0 % Immature Gran # (Auto) 0.01 (0.00-0.02) K/uL Neut # (Auto) 2.61 (1.4-6.5) K/uL Lymph # (Auto) 2.10 (1.2-3.4) K/uL [place] # (Auto) 0.52 (0.11-0.59) K/uL Eos # (Auto) 0.09 (0-0.5) K/uL Baso # (Auto) 0.00 (0-0.2) K/uL Sodium 140 (136-145) mmol/L Potassium 6.1 H* (3.5-5.1) mmol/L Chloride 117 H (98-107) mmol/L Carbon Dioxide 20 L (21-32) mmol/L Anion Gap 4.0 (3-11) BUN 28 H (7-18) mg/dl Creatinine 1.49 H (0.6-1.2) mg/dl Est Cr Clr Drug Dosing 33.2 ml/min Est GFR ( Amer) 40.2 Est GFR (Non-Af Amer) 34.7 BUN/Creatinine Ratio 18.5 (10-20) Glucose 93 (70-99) mg/dl Calcium 10.1 (8.5-10.1) mg/dl Magnesium 1.9 (1.8-2.4) mg/dl Total Bilirubin 0.3 (0.2-1) mg/dl AST 29 (15-37) U/L ALT 29 (12-78) U/L Alkaline Phosphatase 156 H (45-117) U/L Total Creatine Kinase 98 (26-192) U/L Troponin I < 0.015 (0-0.045) ng/ml Total Protein 8.0 (6.4-8.2) gm/dl Albumin 4.3 (3.4-5.0) gm/dl Globulin 3.7 (2.5-4.0) gm/dl Albumin/Globulin Ratio 1.2 (0.9-2) Urine Color Yellow Urine Appearance Clear (Clear) Urine pH 5.0 (4.5-7.5) Ur Specific [place] 1.020 (1.000-1.030) Urine Protein Negative (Negative) Urine Glucose (UA) Negative (Negative) Urine Ketones Negative (Negative) Urine Blood Negative (Negative) Urine Nitrite Negative (Negative) Urine Bilirubin Negative (Negative) Urine Urobilinogen Negative (Negative) Ur Leukocyte Esterase Negative (Negative) Imaging Data Radiologist's Impression: Radiology results as stated below per my review and the radiologist's interpretation: XR chest 1V portable CLINICAL HISTORY: 73 years-old Female presenting with weakness. TECHNIQUE: Portable upright AP view of the chest was obtained. COMPARISON: 08/29/2017. FINDINGS: Atherosclerosis of the aortic arch. Cardiac silhouette enlarged. Mild prominence of pulmonary vasculature. No focal opacity. No large effusion or pneumothorax. Superimposed pannus at the lung bases degraded evaluation. Osteopenia may be present. Upper abdomen normal. IMPRESSION: 1. Cardiomegaly with possible minimal volume overload. No other convincing evidence of acute cardiopulmonary disease. Electronically signed by: Elliot Madrid M.D. 05/26/2019 7:16 PM ECG Data Attestation: I personally reviewed and interpreted this ECG as follows: Indication: + other (hyperkalemia) Rate (beats per minute): 65 Rhythm: + normal sinus ECG ST segments: no ST elevation ECG Findings: + Other (artifact noted to the lateral leads, QTC is 413); no PACs and no PVCs Blood Pressure Blood Pressure Findings: Elevated blood pressure Blood Pressure Disposition: further management by hospitalist MDM Narrative There is a mild leukocytosis, no concerning anemia. Patient has a normal platelet count. Renal panel testing does show a high potassium at 6.1, this was a critical value. There was some renal insufficiency/dehydration with a creatinine 1.49. No concerning liver enzyme elevation. Urinalysis does not show infection or hematuria. EKG shows a sinus rhythm, no acute ischemic change. Cardiac enzyme testing x1 is not consistent with acute cardiac injury. Chest film shows some parenchymal congestion, no pneumonia, no pneumothorax. The patient was given a DuoNeb, she received IV saline. Patient was given 2 boluses of 500 cc of saline. The DuoNeb and saline were given for the higher potassium value. The DuoNeb was also given for her wheezing. The patient is asymptomatic but does have a higher potassium value, the cause for the high potassium is not clear. She is somewhat dehydrated and this may be contributing, her meds may be contributing. Given the hyperkalemia, a hospital stay is warranted. The patient has agreed to stay for further work-up and care. I spoke to the pillowcase turner, the on-call hospitalist was consulted. Impression & Plan Hyperkalemia, Dehydration, Acute kidney injury, Wheezing Discharge Plan Visit Data Chief Complaint: Abnormal Labs/Diagnostic Testing Stated Complaint: POTASSIUM LEVEL 6.8 ED Provider: Wilber Briceno Discharge Problem: Hyperkalemia, Dehydration, Acute kidney injury, Wheezing Patient Disposition: Admitted As Inpatient Forms Stand Alone Forms: [facility] Prescriptions Prescriptions: No Action acetaminophen 500 mg capsule 1,000 mg PO Q8 PRN (Reason: pain) RF: 0 albuterol sulfate [Ventolin HFA] 90 mcg/actuation HFA aerosol inhaler 2 puffs INH Q6H PRN (Reason: Shortness Of Breath Or Wheezing) RF: 0 atorvastatin 80 mg tablet 80 mg PO DAILY RF: 0 carvedilol 3.125 mg tablet 3.125 mg PO BID RF: 0 clopidogrel 75 mg tablet 75 mg PO DAILY RF: 0 cyanocobalamin (vitamin B-12) 1,000 mcg/mL solution 1,000 mcg IM MONTHLY RF: 0 diphenhydramine HCl [Benadryl Allergy] 25 mg tablet 25 mg PO DAILY PRN (Reason: itching) RF: 0 cholecalciferol (vitamin D3) 50,000 unit capsule 50,000 units PO 2XWK RF: 0 furosemide 40 mg tablet 80 mg PO DAILY RF: 0 hydrocodone-acetaminophen [Pendleton] 5-325 mg tablet 1 tab PO Q8H PRN (Reason: Pain) RF: 0 isosorbide mononitrate 30 mg tablet extended release 24 hr 30 mg PO DAILY RF: 0 levothyroxine 125 mcg capsule 125 mcg PO DAILY RF: 0 nitroglycerin [Nitrostat] 0.4 mg tablet, sublingual 0.4 mg SL Q5M PRN (Reason: Chest Pain) RF: 0 sertraline 100 mg tablet 100 mg PO DAILY RF: 0 Referrals Referrals: Richie Fallon MD [Primary Care Provider] - The valeriibdonte's documentation has been prepared under my direction and personally reviewed by me in its entirety. I confirm that the note above accurately reflects all work, treatment, procedures, and medical decision making performed by me.
--- NOTE | 2019-05-26 19:18 | XRay Report ---
XR chest 1V portable CLINICAL HISTORY: 73 years-old Female presenting with weakness. TECHNIQUE: Portable upright AP view of the chest was obtained. COMPARISON: 08/29/2017. FINDINGS: Atherosclerosis of the aortic arch. Cardiac silhouette enlarged. Mild prominence of pulmonary vascula ture. No focal opacity. No large effusion or pneumothorax. Superimposed pannus at the lung bases degr aded evaluation. Osteopenia may be present. Upper abdomen normal. IMPRESSION: 1. Cardiomegaly with possible minimal volume overload. No other convincing evidence of acute cardiop ulmonary disease. Electronically signed by: Elliot Madrid M.D. 05/26/2019 7:16 PM
[2019-05-26 19:29] LABS: Appearance Urine Clear (Clear); Bilirubin Urine Negative (Negative); Blood Urine Negative (Negative); Color Urine Yellow; Glucose Urine UA Negative (Negative); Ketones Urine Negative (Negative); Leukocyte Esterase Urine Negative (Negative); Nitrite Urine Negative (Negative); Protein Urine Negative (Negative); Urobilinogen Urine Negative (Negative)
[2019-05-26 19:41] LABS: Eosinophils # (auto) 0.09 K/uL (0-0.5); Eosinophils % (auto) 1.7 %; Hematocrit (blood only) 42.1 % (37-47); Hemoglobin 13.3 g/dL (12.0-16.0); Immature Granulocytes # (auto) 0.01 K/uL (0.00-0.02); Immature Granulocytes % (auto) 0.2 %; Lymphocytes % (auto) 39.4 %; Mean Corpuscular Hemoglobin 32.8 pg (25-34); Mean Corpuscular Hgb Conc 31.6 g/dL (32-36); Mean Platelet Volume 10.7 fL (7.4-10.4); Monocytes # (auto) 0.52 K/uL (0.11-0.59); Monocytes % (auto) 9.8 %; Neutrophils # (auto) 2.61 K/uL (1.4-6.5); Neutrophils % (auto) 48.9 %; Platelet Count 158 K/uL (130-400); RDW Coefficient of Variation 14.7 % (11.5-14.5); RDW Standard Deviation 56.4 fL (36.4-46.3); Red Blood Count 4.05 M/uL (4.2-5.4); White Blood Count 5.33 K/uL (4.8-10.8)
[2019-05-26 20:21] LABS: Alanine Aminotransferase 29 U/L (12-78); Albumin Globulin Ratio 1.2 (0.9-2); Albumin Level 4.3 gm/dl (3.4-5.0); Alkaline Phosphatase 156 U/L (45-117); Aspartate Aminotransferase 29 U/L (15-37); BUN Creatinine Ratio 18.5 (10-20); Bilirubin,Total 0.3 mg/dl (0.2-1); Blood Urea Nitrogen 28 mg/dl (7-18); Calcium 10.1 mg/dl (8.5-10.1); Carbon Dioxide 20 mmol/L (21-32); Chloride 117 mmol/L (98-107); Creatinine Clr Calc Pharmacy 33.2 ml/min; Est GFR (African American) 40.2; Est GFR (Non-African American) 34.7; Globulin 3.7 gm/dl (2.5-4.0); Glucose 93 mg/dl (70-99); Magnesium 1.9 mg/dl (1.8-2.4); Potassium 6.1 mmol/L (3.5-5.1); Sodium 140 mmol/L (136-145); Troponin I < 0.015 ng/ml (0-0.045)
[2019-05-26] MEDS ORDERED: SODIUM CHLORIDE 0.9% 1000ML 500 ML IV ONE (20:22)
[2019-05-26] MEDS ORDERED: DEXTROSE 50% 50 ML SYRINGE IV ONE (21:27)
[2019-05-26] MEDS ORDERED: SODIUM BICARBONATE 8.4% INJ 50 MEQ/50 ML VIAL IV STA (21:36)
[2019-05-26] MEDS ORDERED: INSULIN HUMAN REGULAR PER UNIT 10 UNITS in SYRINGE 9.9 ML IV STA (21:42)
[2019-05-26] MEDS ORDERED: HYDROCODONE/ACETAMOPHEN 5/325MG TAB PO STA (22:03)
[2019-05-26 22:04] LABS: Creatine Kinase 98 U/L (26-192)
--- NOTE | 2019-05-26 22:38 | History & Physical Report ---
Date of Service May 26, 2019 Assessment & Plan (1) Hyperkalemia: CRI (baseline creatinine 1.4-1.6 since September 2018) NAGMA on outpatient serum chemistries this week possible RTA hx diastolic dysfunction (EF 55-60%, TTE 2017) Patient presenting with s/sx of fluid retention ? CHF Bilateral LE swelling secondary to fluid retention Rule out DVT HTN, slightly elevated hx CAD, status post stenting hx PVD DM2, diet-controlled, well-controlled as of recent outpatient hemoglobin A1c 5.22 February 2019 Hypothyroidism, euthyroid as of recent outpatient TSH of 1.40 16 February 2019 chronic back pain sp surgery primary hyperparathyroidism status post surgery primary Raynaud syndrome as per records past tobacco abuse Medical telemetry IV insulin, bicarb, Lasix IV 1 dose for hypokalemia Patient reminded on importance of compliance with low potassium diet. Nephrology consult RE hyperkalemia, CKD Update TTE RE possible CHF LE venous Dopplers rule out DVT ISS BG goal 140-180 DVT prophylaxis. Heparin subcu Full code Patient's daughter requesting updates from providers. Ms. Susanne Mayorgan, contact #[phone]. History of Present Illness Chief Complaint: Abnormal blood work Primary Care Provider: Richie Fallon MD History obtained from patient, family, and records. History somewhat limited from patient secondary to some hearing impairment. Medical history significant for diastolic dysfunction (EF 55-60%, TTE 2018), CAD, status post stenting, PVD, gastric bypass, hypertension, CRI (baseline creatinine 1.4-1.6 since September 2018), DM2, diet-controlled, chronic back pain sp surgery , myofascial pain syndrome as per records, LAMBERT on CPAP, primary hyperparathyroidism status post surgery, primary Raynaud syndrome as per records , past tobacco abuse. Recent confinement 2018 for pneumonia, encephalopathy secondary to polypharmacy. Patient noted to have serum creatinine of 1.4-1.6 about October,. Patient Metformin stopped by PCP. Patient seen at PCPs office last week for recheck. Complaining of dry to moist cough, ear ache, usual back pain with leg cramps. Inhaler prescribed for cough. Notable outpatient labs from 05/18 : serum potassium 5.8, CO2 20, serum creatinine 1.4. Patient instructed to increase hydration and comply with low potassium diet. Patient still consuming at least one banana daily despite instructions.. Outpatient chemistry done w serum potassium of 6.7, CO2 18, serum creatinine 1.4. Patient denies chest pain, S OB. Both legs more swollen than usual. Denies NSAID intake. Patient instructed to stop Losartan. Patient directed to the ER by on-call physician for further evaluation. Serum potassium noted to be 6.1. NSS given at the ER. MEDICAL HISTORY: As above. TTE 2018 Ejection Fraction = 55-60%. There is mild concentric left ventricular hypertrophy. The left coronary aortic valve cusp appears focally calcified with reduced mobility. Aortic valve sclerosis moderate, without significant aortic valvular stenosis. There is trace tricuspid regurgitation. The estimated systolic PAP is 36mmHg. Grade I diastolic dysfunction, (abnormal relaxation pattern). AAA no significant interval growth of AAA at 42 mm from December [address] from September 2018 SURGERIES: She has had back surgery, appendectomy, hysterectomy, tonsillectomy, gastric bypass, parathyroidectomy, liver biopsy FAMILY HISTORY: There is a family history of heart disease, diabetes, skin cancer, pancreatic cancer, dementia. PERSONAL AND SOCIAL HISTORY: Past tobacco abuse. No chronic intake of alcoholic beverages. 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 Allergies Allergy/AdvReac Type Severity Reaction Status Date / Time adhesive Allergy Severe HIVES Verified 05/26/19 21:10 aspirin Allergy Intermediate HIVES Verified 05/26/19 21:10 NSAIDS (Non-Steroidal Allergy Intermediate HIVES Verified 05/26/19 21:10 Anti-Inflamma Home Medications Home Medications Medication Instructions Recorded Confirmed Type acetaminophen 500 mg capsule 1,000 mg PO Q8 PRN cap 02/02/19 05/26/19 History albuterol sulfate HFA 90 2 puffs INH Q6H PRN 02/02/19 05/26/19 History mcg/actuation aerosol inhaler atorvastatin 80 mg tablet 80 mg PO DAILY 02/02/19 05/26/19 History carvedilol 3.125 mg tablet 3.125 mg PO BID 02/02/19 05/26/19 History cholecalciferol (vitamin D3) 50,000 units PO 2XWK cap 02/02/19 05/26/19 History 50,000 unit capsule clopidogrel 75 mg tablet 75 mg PO DAILY 02/02/19 05/26/19 History cyanocobalamin (vit B-12) 1,000 1,000 mcg IM MONTHLY ml 02/02/19 05/26/19 History mcg/mL injection solution diphenhydramine 25 mg tablet 25 mg PO DAILY PRN tab 02/02/19 05/26/19 History furosemide 40 mg tablet 80 mg PO DAILY tab 02/02/19 05/26/19 History hydrocodone 5 mg-acetaminophen 325 1 tab PO Q8H PRN tab 02/02/19 05/26/19 History mg tablet isosorbide mononitrate ER 30 mg 30 mg PO DAILY 02/02/19 05/26/19 History tablet,extended release 24 hr levothyroxine 125 mcg capsule 125 mcg PO DAILY 02/02/19 05/26/19 History nitroglycerin 0.4 mg sublingual 0.4 mg SL Q5M PRN 02/02/19 05/26/19 History tablet sertraline 100 mg tablet 100 mg PO DAILY 02/02/19 05/26/19 History Past Med/Surg History Medical History Aneurysm (Chronic) Angina effort (Chronic) Arthritis (Chronic) CHF (congestive heart failure) (Chronic) Hernia (Chronic) Hypothyroid (Chronic) Lymphedema (Chronic) Myocardial infarction (Chronic) Past heart attack (Chronic) Raynaud's syndrome without gangrene (Chronic) Surgical History S/P angioplasty with stent (Chronic) S/P appendectomy, follow-up exam (Chronic) S/P gastric bypass (Chronic) S/P hysterectomy (Chronic) S/P thyroidectomy (Chronic) S/P tonsillectomy (Chronic) Social History Preferred Language: Danish Communication Ability: Effective Visual Impairment: Limited Hearing Ability: Hard of Hearing Acid Operator Required: No Beliefs That Will Affect Care: None marital status: / Current Living Situation: Alone Current Living Situation Comment: Caregiver twice a week current occupational status: retired and disabled Other Information That Helps Us Care for You: No Feels Safe at Home: Yes Safety Concerns: Feels Safe At This Time Smoking Status: Current every day smoker Tobacco Type: cigarettes ; packs per day: 1 ; Do You Dip or Chew Tobacco: No ; Second Hand Exposure: No ; Tobacco Cessation Education Requested by Patient: No Hx Alcohol Use: Yes Hx Substance Use: No Review of Systems Review of Systems: As per HPI, all 10 systems reviewed, all other ROS negative Physical Exam Physical Exam: GENERAL: Comfortable, obese, slightly hard of hearing, no respiratory distress SKIN: Normal color, warm HEENT: [place] palpebral conjunctivae, no ptosis, moist buccal mucosa NECK : Supple, short neck, no tenderness CHEST : Decreased breath sounds, no tenderness HEART : RRR, no obvious murmurs ABDOMEN: Some distention, nontender EXTREMITIES : Bilateral LE swelling, LE tenderness, no other conspicuous deformities noted NEUROLOGIC : Coherent, hard of hearing, no facial asymmetry, gait and stance not assessed Results & Data Vital Signs (Past 12 Hours) Vital Signs Temp Pulse Pulse Resp BP BP Pulse Ox 05/26/19 22:27 81 20 162/99 H 99 05/26/19 21:00 66 16 159/92 H 97 05/26/19 20:19 63 18 97 05/26/19 20:04 67 17 156/88 H 97 05/26/19 18:48 36.7 C 69 20 148/79 H 97 Laboratory Results Laboratory Results WBC 5.33 K/uL (4.8-10.8) 05/26/19 19:26 RBC 4.05 M/uL (4.2-5.4) L 05/26/19 19:26 Hgb 13.3 g/dL (12.0-16.0) 05/26/19 19:26 Hct 42.1 % (37-47) 05/26/19 19:26 MCV 104.0 fL (80-100) H 05/26/19 19:26 MCH 32.8 pg (25-34) 05/26/19 19:26 MCHC 31.6 g/dL (32-36) L 05/26/19 19:26 RDW Std Deviation 56.4 fL (36.4-46.3) H 05/26/19 19:26 RDW Coeff of Richar 14.7 % (11.5-14.5) H 05/26/19 19:26 Plt Count 158 K/uL (130-400) 05/26/19 19:26 MPV 10.7 fL (7.4-10.4) H 05/26/19 19:26 Immature Gran % (Auto) 0.2 % 05/26/19 19:26 Neut % (Auto) 48.9 % 05/26/19 19: Lymph % (Auto) 39.4 % 05/26/19 19: [place] % (Auto) 9.8 % 05/26/19 19: Eos % (Auto) 1.7 % 05/26/19 19:26 Baso % (Auto) 0.0 % 05/26/19 19: Immature Gran # (Auto) 0.01 K/uL (0.00-0.02) 05/26/19 19: Neut # (Auto) 2.61 K/uL (1.4-6.5) 05/26/19: Lymph # (Auto) 2.10 K/uL (1.2-3.4) 05/26/19: [place] # (Auto) 0.52 K/uL (0.11-0.59) 05/26/19 19: Eos # (Auto) 0.09 K/uL (0-0.5) 05/26/19 19: Baso # (Auto) 0.00 K/uL (0-0.2) 05/26/19 19:26 Sodium 140 mmol/L (136-145) 05/26/19 19: Potassium 6.1 mmol/L (3.5-5.1) H* 05/26/19 19: Chloride 117 mmol/L (98-107) H 05/26/19 19: Carbon Dioxide 20 mmol/L (21-32) L 05/26/19 19: Anion Gap 4.0 (3-11) 05/26/19 19: BUN 28 mg/dl (7-18) H 05/26/19 19: Creatinine 1.49 mg/dl (0.6-1.2) H 05/26/19 19:26 Est Cr Clr Drug Dosing 33.2 ml/min 05/26/19 19: Est GFR ( Amer) 40.2 05/26/19 19: Est GFR (Non-Af Amer) 34.7 05/26/19 19: BUN/Creatinine Ratio 18.5 (10-20) 05/26/19 19: Glucose 93 mg/dl (70-99) 05/26/19 19: Calcium 10.1 mg/dl (8.5-10.1) 05/26/19 19:26 Magnesium 1.9 mg/dl (1.8-2.4) 05/26/19 19:26 Total Bilirubin 0.3 mg/dl (0.2-1) 05/26/19 19:26 AST 29 U/L (15-37) 05/26/19 19:26 ALT 29 U/L (12-78) 05/26/19 19:26 Alkaline Phosphatase 156 U/L (45-117) H 05/26/19 19:26 Total Creatine Kinase 98 U/L (26-192) 05/26/19 19:26 Troponin I < 0.015 ng/ml (0-0.045) 05/26/19 19:26 Total Protein 8.0 gm/dl (6.4-8.2) 05/26/19 19:26 Albumin 4.3 gm/dl (3.4-5.0) 05/26/19 19:26 Globulin 3.7 gm/dl (2.5-4.0) 05/26/19 19:26 Albumin/Globulin Ratio 1.2 (0.9-2) 05/26/19 19:26 Urine Color Yellow 05/26/19 19:20 Urine Appearance Clear (Clear) 05/26/19 19:20 Urine pH 5.0 (4.5-7.5) 05/26/19 19:20 Ur Specific [place] 1.020 (1.000-1.030) 05/26/19 19:20 Urine Protein Negative (Negative) 05/26/19 19:20 Urine Glucose (UA) Negative (Negative) 05/26/19 19:20 Urine Ketones Negative (Negative) 05/26/19 19:20 Urine Blood Negative (Negative) 05/26/19 19:20 Urine Nitrite Negative (Negative) 05/26/19 19:20 Urine Bilirubin Negative (Negative) 05/26/19 19:20 Urine Urobilinogen Negative (Negative) 05/26/19 19:20 Ur Leukocyte Esterase Negative (Negative) 05/26/19 19:20 Diagnostic Findings Chest x-ray : Cardiomegaly with possible minimal volume overload. EKG as per my interpretation : Rate 65, LAD, LAFB, T wave abnormalities lateral leads
[2019-05-26] MEDS ORDERED: FUROSEMIDE 60 MG in SYRINGE 0 ML IV ONE (22:45)
[2019-05-26 23:11] LABS: Potassium Random Urine 35.6 mmol/L
[2019-05-26] MEDS ORDERED: PROMETHAZINE HCL 12.5 MG in SODIUM CHLORIDE 0.9% 50 ML IV PRN (23:59)
[2019-05-26] MEDS ORDERED: GLUCAGON FOR INJ 1 MG VIAL SQ PRN (23:59)
[2019-05-26] MEDS ORDERED: HYDROCODONE/ACETAMOPHEN 5/325MG TAB PO PRN (23:59)
[2019-05-26] MEDS ORDERED: HYDROmorphone INJ 0.5 MG/0.5 ML SYR IV PRN (23:59)
[2019-05-26] MEDS ORDERED: GLUCOSE 10 TABS/TUBE PO PRN (23:59)
[2019-05-26] MEDS ORDERED: CARBOHYDRATES FOR HYPOGLYCEMIA PO PRN (23:59)
[2019-05-26] MEDS ORDERED: NITROGLYCERIN SL 0.4 MG/TAB TAB SL PRN (23:59)
[2019-05-26] MEDS ORDERED: ACETAMINOPHEN 325 MG TAB PO PRN (23:59)
[2019-05-26] MEDS ORDERED: GLUCOSE 40% GEL 15 GM TUBE PO PRN (23:59)
[2019-05-26] MEDS ORDERED: DEXTROSE 50% 50 ML SYRINGE IV PRN (23:59)
[2019-05-27] MEDS: CARVEDILOL 3.125 MG TAB PO SCH ×3 (01:02→21:17)
[2019-05-27] MEDS: INSULIN ASPART 100 UNITS/ML 3 ML PEN SC SCH ×5 (01:04→22:07)
[2019-05-27 03:34] LABS: Influenza A virus by PCR Neg for Influ A (Neg); Influenza B virus by PCR Neg for Influ B (Neg)
[2019-05-27] MEDS: HYDROCODONE/ACETAMOPHEN 5/325MG TAB PO PRN ×4 (04:22→23:00)
[2019-05-27] MEDS: HEPARIN SOD 5,000 UNIT/0.5 ML VIAL SQ SCH ×3 (06:09→21:17)
[2019-05-27] MEDS: LEVOTHYROXINE SODIUM 125 MCG TABLET PO SCH (06:09)
--- NOTE | 2019-05-27 06:25 | Ultrasound Report ---
US venous doppler LE BI CLINICAL HISTORY: Bilateral leg swelling COMPARISON STUDY: No previous studies for comparison. FINDINGS: Real-time and color flow Doppler imaging were performed. Flow was seen within the femoral, popliteal and calf veins with no intraluminal thrombus demonstrated. The saphenous vein is patent. IMPRESSION: No evidence of lower extremity DVT. Electronically signed by: Maxime Ross M.D. 05/27/2019 6:23 AM
[2019-05-27 07:29] LABS: Eosinophils # (auto) 0.09 K/uL (0-0.5); Eosinophils % (auto) 1.8 %; Hematocrit (blood only) 34.9 % (37-47); Hemoglobin 11.1 g/dL (12.0-16.0); Immature Granulocytes # (auto) 0.01 K/uL (0.00-0.02); Immature Granulocytes % (auto) 0.2 %; Lymphocytes # (auto) 2.06 K/uL (1.2-3.4); Lymphocytes % (auto) 40.1 %; Mean Corpuscular Hemoglobin 32.6 pg (25-34); Mean Corpuscular Hgb Conc 31.8 g/dL (32-36); Mean Corpuscular Volume 102.3 fL (80-100); Mean Platelet Volume 10.3 fL (7.4-10.4); Monocytes # (auto) 0.48 K/uL (0.11-0.59); Monocytes % (auto) 9.3 %; Neutrophils % (auto) 48.6 %; Platelet Count 116 K/uL (130-400); RDW Coefficient of Variation 14.5 % (11.5-14.5); RDW Standard Deviation 54.3 fL (36.4-46.3); Red Blood Count 3.41 M/uL (4.2-5.4); White Blood Count 5.14 K/uL (4.8-10.8)
[2019-05-27 07:31] LABS: Base Excess VBG -3.7 mEq/L; pH VBG 7.32 (7.36-7.41)
[2019-05-27 08:03] LABS: BUN Creatinine Ratio 19.2 (10-20); Calcium 9.9 mg/dl (8.5-10.1); Est GFR (Non-African American) 40.6; Potassium 5.2 mmol/L (3.5-5.1)
[2019-05-27] MEDS: SERTRALINE HCL 100 MG TABLET PO SCH (08:47)
[2019-05-27] MEDS: CLOPIDOGREL BISULFATE 75 MG TAB PO SCH (08:47)
[2019-05-27] MEDS: ATORVASTATIN 40 MG TAB PO SCH (08:48)
[2019-05-27] MEDS: ISOSORBIDE MONO EXTENDED REL 30 MG TABCR PO SCH (08:48)
[2019-05-27] MEDS ORDERED: FUROSEMIDE 40 MG TAB PO SCH (09:00)
[2019-05-27] MEDS ORDERED: PERFLUTREN LIPID MICROSPHERE (DEFINITY) IV ONE (13:41)
--- NOTE | 2019-05-27 14:09 | Nephrology Consultation ---
Date of Consultation May 27, 2019 Assessment & Plan (1) Hyperkalemia: she was on losartan as OP so this certainly contributed; apart from very low dose B lion, no other offending agents such as nsaids or herbal supplements; doubt BB and ARB even in presence of RTA [address] K to 6, the OP value that prompted pt to be sent to ER. VBG unremarkable/ not suggestive of glaring acid base disorder (also not best test to evaluate these though). pt/family deny her eating high K diet at home. interestingly, she has in had issues with mild hypercalcemia and elevated PTH very consistently; there is a one year gap in the labs between 10/2017 and 09/2018> as of 09/2018 calcium issues have receded but now she has CKD 3 w/ baseline creatinine 1.4-1.7 (new dx) and new issues since february 2019 with hyperkalemia, nonanion gap metabolic acidosis. CKD may have come on in wake of IV contrast exposure 09/2018 to f/u aneurysms. 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 w/ worsened acidosis w/ diarrhea -check strict I/O including bm -check pra, serum sussy, serum cortisol, lactic acid, serum osms, phos, ABG w/ bmp in am -continue low K diet and educate pt on this -did have lasix OP dose today; would hold pending next labs want to reintroduce once renal insufficiency back to baseline; would NOT d/c on ARB -could consider fludrocortisone periodically as OP but this would be last resort Present on Admission?: Yes (2) CKD (chronic kidney disease) stage 3, GFR 30-59 ml/min: new dx as of spring 2018 w/ new baseline creatinine after 12 month gap in labs (in part b/c no ckd at the time) to 1.4-1.6, ? if complication of contrast induced nephropathy >pt very leery of doctors > family and I discussed >> she can follow for CKD w/ pcp until/ unless stage 4 or if above issues worsen, in which case would need ckd clinic f/u Present on Admission?: Yes (3) Metabolic acidosis: chronic non anion gap metabolic acidosis which emerged abruptly in 02/2019 along w/ issues of hyperkalemia; chronic diarrhea worsened around same time this emerged; diarrhea worsened despite stopping metformin Present on Admission?: Yes History of Present Illness Attending Physician: Latonya Seals MD History of Present Illness 73 y/o F whom I'm asked to see for hyperkalemia was yesterday sent to ER and admitted d/t OP K 6.7, w/ creat 1.4, chloride 112, bicarb 18. she takes coreg, lasix, losartan as OP; denies nsaids (and is in fact allergic to them). PMH includes DM currently diet controlled, chronic CAD s/p remote stents, CKD3, chronic lymphedema, HTN, active tobacco abuse, aneurysmal disease w/ AAA and BL common and internal iliac artery aneurysms followed by vascular, Raynaud's phenomenon, 2007 kat en y gastric bypass and lost 100 lb, hypothryoid, sleep ap wilbur, chronic low back pain w/ BLE weakness s/p multiple surgeries and w/c bound after fall in 2018, primary hyperparathyroidism s/p 2011 parathyroidectomy w/ ongoing PTH elevations post op. In the ER, she presented with k 6.1, creat 1.5, chloride 117, bicarb 20. She was treated w/ insulin IV, bicarb, lasix IV; as well as 1.5L NS. This am K is 5.2, creat 1.3, bicarb 22, chloride 117. she had her OP lasix today. She takes no supplements. she has chronic diarrhea since bypass but her family states she has had markedly worse diarrhea past few mos. Allergies Allergy/AdvReac Type Severity Reaction Status Date / Time adhesive Allergy Severe HIVES Verified 05/26/19 21:10 aspirin Allergy Intermediate HIVES Verified 05/26/19 21:10 NSAIDS (Non-Steroidal Allergy Intermediate HIVES Verified 05/26/19 21:10 Anti-Inflamma Home Medications Home Medications Medication Instructions Recorded Confirmed Type acetaminophen 500 mg capsule 1,000 mg PO Q8 PRN cap 02/02/19 05/26/19 History albuterol sulfate HFA 90 2 puffs INH Q6H PRN 02/02/19 05/26/19 History mcg/actuation aerosol inhaler atorvastatin 80 mg tablet 80 mg PO DAILY 02/02/19 05/26/19 History carvedilol 3.125 mg tablet 3.125 mg PO BID 02/02/19 05/26/19 History cholecalciferol (vitamin D3) 50,000 units PO 2XWK cap 02/02/19 05/26/19 History 50,000 unit capsule clopidogrel 75 mg tablet 75 mg PO DAILY 02/02/19 05/26/19 History cyanocobalamin (vit B-12) 1,000 1,000 mcg IM MONTHLY ml 02/02/19 05/26/19 History mcg/mL injection solution diphenhydramine 25 mg tablet 25 mg PO DAILY PRN tab 02/02/19 05/26/19 History furosemide 40 mg tablet 80 mg PO DAILY tab 02/02/19 05/26/19 History hydrocodone 5 mg-acetaminophen 325 1 tab PO Q8H PRN tab 02/02/19 05/26/19 History mg tablet isosorbide mononitrate ER 30 mg 30 mg PO DAILY 02/02/19 05/26/19 History tablet,extended release 24 hr levothyroxine 125 mcg capsule 125 mcg PO DAILY 02/02/19 05/26/19 History nitroglycerin 0.4 mg sublingual 0.4 mg SL Q5M PRN 02/02/19 05/26/19 History tablet sertraline 100 mg tablet 100 mg PO DAILY 02/02/19 05/26/19 History Patient History Medical History Aneurysm (Chronic) Angina effort (Chronic) Arthritis (Chronic) CHF (congestive heart failure) (Chronic) Hernia (Chronic) Hypothyroid (Chronic) Lymphedema (Chronic) Myocardial infarction (Chronic) Past heart attack (Chronic) Raynaud's syndrome without gangrene (Chronic) Surgical History S/P angioplasty with stent (Chronic) S/P appendectomy, follow-up exam (Chronic) S/P gastric bypass (Chronic) S/P hysterectomy (Chronic) S/P thyroidectomy (Chronic) S/P tonsillectomy (Chronic) Social History Preferred Language: Bengali Communication Ability: Effective Visual Impairment: Limited Hearing Ability: Hard of Hearing Division Service Manager Required: No Beliefs That Will Affect Care: None marital status: / Current Living Situation: Alone Current Living Situation Comment: Caregiver twice a week current occupational status: retired and disabled Other Information That Helps Us Care for You: No Feels Safe at Home: Yes Safety Concerns: Feels Safe At This Time Smoking Status: Current every day smoker Tobacco Type: cigarettes ; packs per day: 1 ; Do You Dip or Chew Tobacco: No ; Second Hand Exposure: No ; Tobacco Cessation Education Requested by Patient: No Hx Alcohol Use: Yes Hx Substance Use: No Review of Systems Review of Systems: All systems reviewed & are unremarkable except as noted in HPI & below Respiratory: + cough; no dyspnea and no pain with cough Cardiovascular: + edema (stable chronic); no chest pain Gastrointestinal: + diarrhea/loose stools; no abdominal pain, no early satiety and no vomiting poor fluid intake per family Genitourinary: no dysuria, no urinary frequency and no urinary hesitancy Integumentary: no rash and no non-healing lesions Neurologic: as per Subjective / HPI Hematologic / Lymphatic: no easy bleeding Physical Exam Constitutional: well developed, + obese and + physical limitations sitting on side of bed hunched on RA, doses off at one point in exam; also gets angry and won't participate for a time Eyes: EOM intact bilaterally ENMT: Ears: no external ear abnormality Nose: no external nose abnormality Mouth: + dry oral mucous membranes Neck: no nuchal rigidity Respiratory: normal respiratory effort Auscultation: + diminished lung sounds and + rhonchi Cardiovascular: Rate/Rhythm: regular rate and regular rhythm Extremities: + edema (trace BL) Gastrointestinal (Abdomen): Inspection/Auscultation: normal bowel sounds Percussion/Palpation: abdomen soft; abdomen nontender Musculoskeletal: Extremities: strength 5/5 throughout Skin: no rashes, warm and dry Neurologic: wilson, fluent speech, no tremor Psychiatric: Orientation: alert and oriented x 3 Speech: normal rate/rhythm/volume of speech Affect: + anxious affect and + irritable affect Results & Data Vital Signs (Past 12 Hours) Vital Signs Temp Pulse Pulse Resp BP Pulse Ox 05/27/19 11:16 36.6 C 86 20 150/70 H 94 05/27/19 11:13 36.5 C 76 18 144/85 H 96 05/27/19 08:00 79 05/27/19 07:34 36.6 C 77 20 128/80 95 05/27/19 04:00 36.6 C 73 20 134/73 96 Laboratory Results 05/27/19 07:18 05/27/19 07:[address] abd/pelvis w/ IV con 09/2018 adrenal adenoma on L kidneys unremarkable as are ureters no interval growth in AAA, BL common and BL internal iliac artery aneurysms
--- NOTE | 2019-05-27 19:05 | Hospitalist Progress Note ---
Date of Service May 27, 2019 Assessment & Plan (1) Hyperkalemia: Possible related to RTA 4 from DM w/ worsened acidosis w/ diarrhea K on admission 6.1, then dropped to 5.2 EKG did not showed peak T wave Received IV lasix Continue to hold losartan Nephrology on board CKD stage 3 Creatinine baseline creatinine 1.4-1.6 since September 2018 Monitor BMP Hx diastolic dysfunction Asymptomatic Last ECHO on 2017 with EF 55-60% stable Bilateral LE swelling Possible secondary to fluid retention Doppler of LE u/s showed no DVT HTN BP stable continue home medication dose hx CAD status post stenting Continue Statin,Plavix, and statin Stable Hypothyroidism Continue Levothyroxine DVT prophylaxis on Heparin subcu Full code Patient's daughter requesting updates from providers. Ms. Susanne Zhou, contact #[phone]. Subjective Pt was seen and examined Lying in bed with no distress with daugher and son at bedside Pt said that she feels fine. She is very anxious to go home Denies any chest pain, palpitation and SOB Physical Exam Physical Exam: General- No acute distress Head- atraumatic Eyes- PERRL, EOMI, ENT- oropharynx clear Neck- supple, no JVD Lungs- clear to auscultation Heart- regular rhythm; no murmur Abdomen- normal bowel sounds, soft, nontender Extremities- no calf tenderness Neuro- alert, oriented x 3; PERRL, EOMI; no facial palsy; no dysarthria Skin- warm & dry Results & Data Vital Signs (Past 12 Hours) Vital Signs Temp Pulse Pulse Resp BP Pulse Ox 05/27/19 18:33 36.8 C 75 18 129/86 96 05/27/19 18:02 75 05/27/19 18:01 69 05/27/19 15:08 36.5 C 78 20 104/70 96 05/27/19 11:16 36.6 C 86 20 150/70 H 94 05/27/19 11:13 36.5 C 76 18 144/85 H 96 05/27/19 08:00 79 05/27/19 07:34 36.6 C 77 20 128/80 95
[2019-05-28] MEDS: HYDROCODONE/ACETAMOPHEN 5/325MG TAB PO PRN ×2 (05:47→13:08)
[2019-05-28] MEDS: LEVOTHYROXINE SODIUM 125 MCG TABLET PO SCH (05:48)
[2019-05-28] MEDS: HEPARIN SOD 5,000 UNIT/0.5 ML VIAL SQ SCH (05:48)
[2019-05-28 07:34] LABS: HCO3 ABG 21 mmol/L (19-24); PCO2 ABG 40 mmHg (35-46); PO2 ABG 68 mm/Hg (80-95); pH ABG 7.34 (7.35-7.45)
[2019-05-28 07:56] LABS: BUN Creatinine Ratio 24.3 (10-20); Calcium 9.4 mg/dl (8.5-10.1); Creatinine Clr Calc Pharmacy 33.8 ml/min; Est GFR (African American) 45.3; Est GFR (Non-African American) 39.1; Phosphorus 3.7 mg/dl (2.5-4.9); Potassium 4.7 mmol/L (3.5-5.1)
[2019-05-28 08:00] LABS: Allen Test Pos (Pos)
[2019-05-28] MEDS: CLOPIDOGREL BISULFATE 75 MG TAB PO SCH (08:20)
[2019-05-28] MEDS: ATORVASTATIN 40 MG TAB PO SCH (08:20)
[2019-05-28] MEDS: INSULIN ASPART 100 UNITS/ML 3 ML PEN SC SCH ×2 (08:21→12:12)
[2019-05-28] MEDS: SERTRALINE HCL 100 MG TABLET PO SCH (08:21)
[2019-05-28] MEDS: CARVEDILOL 3.125 MG TAB PO SCH (08:21)
[2019-05-28] MEDS: ISOSORBIDE MONO EXTENDED REL 30 MG TABCR PO SCH (08:21)
--- NOTE | 2019-05-28 09:47 | Nephrology Progress Note ---
Date of Service May 28, 2019 Assessment & Plan (1) Hyperkalemia: she was on losartan as OP so this certainly contributed; apart from very low dose B lion, no other offending agents such as nsaids or herbal supplements; doubt BB and ARB even in presence of RTA [address] K to 6, the OP value that prompted pt to be sent to ER. VBG unremarkable/ not suggestive of glaring acid base disorder (also not best test to evaluate these though). ABG shows only very mild acidemia and some hypoxemia; pt/family deny her eating high K diet at home. interestingly, she has in had issues with mild hypercalcemia and elevated PTH very consistently; there is a one year gap in the labs between 10/2017 and 09/2018> as of 09/2018 calcium issues have receded but now she has CKD 3 w/ baseline creatinine 1.4-1.7 (new dx) and new issues since february 2019 with hyperkalemia, nonanion gap metabolic acidosis. CKD may have come on in wake of IV contrast exposure 09/2018 to f/u aneurysms but certainly w/ longstanding htn, dm, age, obesity, vascular disease, CKD risk has always been high. 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 w/ worsened acidosis w/ diarrhea -check strict I/O including bm -check pra, serum sussy; unremarkable values for serum cortisol, lactic acid, serum osms, phos, ABG; bmp w/ creatinine at baseline and K 4.7 -continue low K diet and educate pt on this -did have lasix OP dose today; would d/c on OP lasix 40 mg daily (verified w/ pt); would NOT d/c on ARB -could consider fludrocortisone periodically as OP but this would be last resort -repeat bmp in 1-2 wks and f/u w/ PCP same time frame care reviewed w/ dr samuel (2) CKD (chronic kidney disease) stage 3, GFR 30-59 ml/min: new dx as of spring 2018 w/ new baseline creatinine after 12 month gap in labs (in part b/c no ckd at the time) to 1.4-1.6, ? if complication of contrast induced nephropathy initially but certainly other factors: chronic diarrhea, HTN, age, DM >pt very leery of doctors > family and I discussed >> she can follow for CKD w/ pcp until/ unless stage 4 or if above issues worsen, in which case would need ckd clinic f/u; if she changes her preferences, welcomed her to see me anytime (3) Metabolic acidosis: chronic non anion gap metabolic acidosis which emerged abruptly in 02/2019 along w/ issues of hyperkalemia; chronic diarrhea worsened around same time this emerged; diarrhea worsened despite stopping metformin >recommend OP GI w/u as pt allows of diarrhea Subjective slept well; eating well for her (small frequent portions); no n/v; no voiding c/o. diarrhea at baseline. no edema. Review of Systems Review of Systems: All systems reviewed & are unremarkable except as noted in HPI & below Physical Exam Constitutional: well developed, + obese and + physical limitations on RA Eyes: EOM intact bilaterally ENMT: Ears: no external ear abnormality Nose: no external nose abnormality Mouth: + dry oral mucous membranes Neck: no nuchal rigidity Respiratory: normal respiratory effort Auscultation: + diminished lung sounds Cardiovascular: Rate/Rhythm: regular rate and regular rhythm Extremities: + edema (trace BL) Gastrointestinal (Abdomen): Inspection/Auscultation: normal bowel sounds Percussion/Palpation: abdomen soft and + hernia; abdomen nontender Musculoskeletal: Extremities: strength 5/5 throughout Skin: no rashes, warm and dry Neurologic: wilson, fluent speech, no tremor Psychiatric: Orientation: alert and oriented x 3 Speech: normal rate/rhythm/volume of speech Affect: + anxious affect and + irritable affect Results & Data Vital Signs (Past 12 Hours) Vital Signs Temp Pulse Pulse Resp BP BP Pulse Ox 05/28/19 07:17 36.4 C L 76 18 130/84 92 05/28/19 03:05 36.7 C 78 19 125/79 92 05/28/19 00:00 70 05/27/19 23:22 36.5 C 67 19 115/72 95 Laboratory Results 05/27/19 07:18 05/28/19 07:10 other labs this am reviewed as well
[2019-05-28 11:18] VITALS: PULSE 76; TEMP 97.2; O2SAT 90
--- NOTE | 2019-05-28 12:08 | Hospitalist Progress Note ---
Date of Service May 28, 2019 Assessment & Plan (1) Hyperkalemia: Possible related to RTA 4 from DM w/ worsened acidosis w/ diarrhea K on admission 6.1, then dropped to 4.7 today EKG did not showed peak T wave Received IV lasix, will resume home dose Lasix on discharge Continue to hold losartan Nephrology on board Check BMP within 3 to 5 days CKD stage 3 Creatinine baseline creatinine 1.4-1.6 since September 2018 Stable Monitor BMP Hypoxia Found on ABG with PO2 68 Saturated well on RA 2 step exercise done today and pt does not qualify for oxygen May consider to get a pulse oximetry overnight done, but pt does not want to stay in the hospital for tonight Hx diastolic dysfunction Asymptomatic Echo showed no wall motion abnormality with EF 65-70% stable Bilateral LE swelling Possible secondary to fluid retention Doppler of LE u/s showed no DVT HTN BP stable continue home medication dose Hx CAD status post stenting Continue Statin,Plavix, and statin Stable Hypothyroidism Continue Levothyroxine DVT prophylaxis on Heparin subcu Full code Disposition Discharge home today Patient's daughter requesting updates from providers. Ms. Susanne Zhou, contact #[phone]. Subjective Pt was seen and examined.Sitting in bed with no distress with at bedside Pt said that she feels fine. She said that she did not sleep well last night because of her chronic pain She had 2 step exercise done and did not require any oxygen supplement Denies any chest pain, palpitation and SOB Physical Exam Physical Exam: General- No acute distress Head- atraumatic Eyes- PERRL, EOMI, ENT- oropharynx clear Neck- supple, no JVD Lungs- clear to auscultation Heart- regular rhythm; no murmur Abdomen- normal bowel sounds, soft, nontender Extremities- no calf tenderness Neuro- alert, oriented x 3; PERRL, EOMI; no facial palsy; no dysarthria Skin- warm & dry Results & Data Vital Signs (Past 12 Hours) Vital Signs Temp Pulse Pulse Pulse Pulse Resp Resp 05/28/19 11:17 36.2 C L 76 18 05/28/19 10:55 92 H 86 75 20 05/28/19 07:17 36.4 C L 76 18 05/28/19 03:05 36.7 C 78 19 Resp Resp BP Pulse Ox Pulse Ox Pulse Ox Pulse Ox 05/28/19 11:17 106/67 90 11/10/19 10:55 18 18 96 98 92 05/28/19 07:17 130/84 92 05/28/19 03:05 125/79 92
[2019-05-28 13:33] VITALS: BP 115/72
--- NOTE | 2019-05-29 08:50 | Discharge Summary ---
Date of Service May 28, 2019 Admission HPI Per Admitting Provider History obtained from patient, family, and records. History somewhat limited from patient secondary to some hearing impairment. Medical history significant for diastolic dysfunction (EF 55-60%, TTE 2018), CAD, status post stenting, PVD, gastric bypass, hypertension, CRI (baseline creatinine 1.4-1.6 since September 2018), DM2, diet-controlled, chronic back pain sp surgery , myofascial pain syndrome as per records, LAMBERT on CPAP, primary hyperparathyroidism status post surgery, primary Raynaud syndrome as per records, past tobacco abuse. Recent confinement 2018 for pneumonia, encephalopathy secondary to polypharmacy. Patient noted to have serum creatinine of 1.4-1.6 about October,. Patient Metformin stopped by PCP. Patient seen at PCPs office last week for recheck. Complaining of dry to moist cough, ear ache, usual back pain with leg cramps. Inhaler prescribed for cough. Notable outpatient labs from 05/18 : serum potassium 5.8, CO2 20, serum creatinine 1.4. Patient instructed to increase hydration and comply with low potassium diet. Patient still consuming at least one banana daily despite instructions.. Outpatient chemistry done w serum potassium of 6.7, CO2 18, serum creatinine 1.4. Patient denies chest pain, S OB. Both legs more swollen than usual. Denies NSAID intake. Patient instructed to stop Losartan. Patient directed to the ER by on-call physician for further evaluation. Serum potassium noted to be 6.1. NSS given at the ER. MEDICAL HISTORY: As above. TTE 2018 Ejection Fraction = 55-60%. There is mild concentric left ventricular hypertrophy. The left coronary aortic valve cusp appears focally calcified with reduced mobility. Aortic valve sclerosis moderate, without significant aortic valvular stenosis. There is trace tricuspid regurgitation. The estimated systolic PAP is 36mmHg. Grade I diastolic dysfunction, (abnormal relaxation pattern). AAA no significant interval growth of AAA at 42 mm from December [address] from September 2018 SURGERIES: She has had back surgery, appendectomy, hysterectomy, tonsillectomy, gastric bypass, parathyroidectomy, liver biopsy FAMILY HISTORY: There is a family history of heart disease, diabetes, skin cancer, pancreatic cancer, dementia. PERSONAL AND SOCIAL HISTORY: Past tobacco abuse. No chronic intake of alcoholic beverages. Retired [employer]. Admission Exam Per Admitting Provider GENERAL: Comfortable, obese, slightly hard of hearing, no respiratory distress SKIN: Normal color, warm HEENT: [place] palpebral conjunctivae, no ptosis, moist buccal mucosa NECK : Supple, short neck, no tenderness CHEST : Decreased breath sounds, no tenderness HEART : RRR, no obvious murmurs ABDOMEN: Some distention, nontender EXTREMITIES : Bilateral LE swelling, LE tenderness, no other conspicuous deformities noted NEUROLOGIC : Coherent, hard of hearing, no facial asymmetry, gait and stance not assessed Principal Diagnosis Hyperkalemia CKD stage 3 Hypoxia Hx diastolic dysfunction Bilateral LE swelling HTN Hx CAD Hypothyroidism Discharge Exam General- No acute distress Head- atraumatic Eyes- PERRL, EOMI, ENT- oropharynx clear Neck- supple, no JVD Lungs- clear to auscultation Heart- regular rhythm; no murmur Abdomen- normal bowel sounds, soft, nontender Extremities- no calf tenderness Neuro- alert, oriented x 3; PERRL, EOMI; no facial palsy; no dysarthria Skin- warm & dry Discharge Data Allergies Allergy/AdvReac Type Severity Reaction Status Date / Time adhesive Allergy Severe HIVES Verified 05/26/19 21:10 aspirin Allergy Intermediate HIVES Verified 05/26/19 21:10 NSAIDS (Non-Steroidal Allergy Intermediate HIVES Verified 05/26/19 21:10 Anti-Inflamma Consultations 05/26/19 21:24 ED Decision to Admit Stat 05/26/19 23:59 Consult Nephrology Routine Ordered Studies 05/26/19 22:37 US venous doppler LE BI Urgent US venous doppler LE BI CLINICAL HISTORY: Bilateral leg swelling COMPARISON STUDY: No previous studies for comparison. FINDINGS: Real-time and color flow Doppler imaging were performed. Flow was seen within the femoral, popliteal and calf veins with no intraluminal thrombus demonstrated. The saphenous vein is patent. IMPRESSION: No evidence of lower extremity DVT. Electronically signed by: Maxime Ross M.D. 05/27/2019 6:23 AM Dictated: 05/27/19622 Transcribed: 05/27/19622 XR chest 1V portable CLINICAL HISTORY: 73 years-old Female presenting with weakness. TECHNIQUE: Portable upright AP view of the chest was obtained. COMPARISON: 08/29/2017. FINDINGS: Atherosclerosis of the aortic arch. Cardiac silhouette enlarged. Mild prominence of pulmonary vasculature. No focal opacity. No large effusion or pneumothorax. Superimposed pannus at the lung bases degraded evaluation. Osteopenia may be present. Upper abdomen normal. IMPRESSION: 1. Cardiomegaly with possible minimal volume overload. No other convincing evidence of acute cardiopulmonary disease. Electronically signed by: Elliot Madrid M.D. 05/26/2019 7:16 PM Dictated: 05/26/191915 Transcribed: 05/26/191915 Hospital Course (1) Hyperkalemia: Possible related to RTA 4 from DM w/ worsened acidosis w/ diarrhea K on admission 6.1, then dropped to 4.7 today EKG did not showed peak T wave Received IV lasix, will resume home dose Lasix on discharge Continue to hold losartan Nephrology on board Check BMP within 3 to 5 days CKD stage 3 Creatinine baseline creatinine 1.4-1.6 since September 2018 Stable Monitor BMP Hypoxia Found on ABG with PO2 68 Saturated well on RA 2 step exercise done today and pt does not qualify for oxygen May consider to get a pulse oximetry overnight done, but pt does not want to stay in the hospital for tonight Hx diastolic dysfunction Asymptomatic Echo showed no wall motion abnormality with EF 65-70% stable Bilateral LE swelling Possible secondary to fluid retention Doppler of LE u/s showed no DVT HTN BP stable continue home medication dose Hx CAD status post stenting Continue Statin,Plavix, and statin Stable Hypothyroidism Continue Levothyroxine DVT prophylaxis on Heparin subcu Full code Disposition Discharge home today Patient's daughter requesting updates from providers. Ms. Susanne Zhou, contact #[phone]. Total Time Total Time Spent Total Time Spent (In Minutes): 35 minutes Total Time Includes: Examination of the Patient, Discharge Planning, Medication Reconciliation, Communication With Other Providers and Other Discharge Plan Discharge Items Patient Disposition: Home - Self-Care Reason For Visit: HYPERKALEMIA Discharge Diagnosis: Hyperkalemia CKD stage 3 Hypoxia Hx diastolic dysfunction Bilateral LE swelling HTN Hx CAD Hypothyroidism Activity: Resume your previous activity Activity Comment: as tolerated Non-emergency contact: Primary Care Provider and Lithoduplicator Operator Call non-emergency contact if: you have any medication questions Follow-up/Referrals: Richie Fallon MD [Primary Care Provider] - Diet: Low Potassium (2gm) Addtl Attending Provider Instructions: Follow up with your primary care provider Dr. Fallon on 05/31 @ 12:20 PM Follow up with Nephrology Dr. Doran on 06/13 @ 1:00PM Check BMP in 1 week to monitor electrolytes and renal function (Your physician will order the lab) Follow up a low potassium diet Fall precaution Pending Studies at Discharge: No Stand-Alone Forms: My [facility], Smoking Cessation Medications and DC Order Prescriptions: Continued acetaminophen 500 mg capsule 1,000 mg PO Q8 PRN (Reason: pain) RF: 0 albuterol sulfate [Ventolin HFA] 90 mcg/actuation HFA aerosol inhaler 2 puffs INH Q6H PRN (Reason: Shortness Of Breath Or Wheezing) RF: 0 atorvastatin 80 mg tablet 80 mg PO DAILY RF: 0 carvedilol 3.125 mg tablet 3.125 mg PO BID RF: 0 clopidogrel 75 mg tablet 75 mg PO DAILY RF: 0 cyanocobalamin (vitamin B-12) 1,000 mcg/mL solution 1,000 mcg IM MONTHLY RF: 0 diphenhydramine HCl [Benadryl Allergy] 25 mg tablet 25 mg PO DAILY PRN (Reason: itching) RF: 0 cholecalciferol (vitamin D3) 50,000 unit capsule 50,000 units PO 2XWK RF: 0 hydrocodone-acetaminophen [Freeburn] 5-325 mg tablet 1 tab PO Q8H PRN (Reason: Pain) RF: 0 isosorbide mononitrate 30 mg tablet extended release 24 hr 30 mg PO DAILY RF: 0 levothyroxine 125 mcg capsule 125 mcg PO DAILY RF: 0 nitroglycerin [Nitrostat] 0.4 mg tablet, sublingual 0.4 mg SL Q5M PRN (Reason: Chest Pain) RF: 0 sertraline 100 mg tablet 100 mg PO DAILY RF: 0 Changed furosemide 40 mg tablet 40 mg PO DAILY Qty: 0 RF: 0 Discharge Orders: Discharge Order (Routine); Ordered 05/28/19 Ordered By: Latonya Seals Admission Data Admit Date/Time: 05/26/19 22:40 Attending Provider: Latonya Seals Admit Provider: Gopal Guthrie Primary Care Provider: Richie Fallon Other Providers: Gopal Guthrie ; Anna Munguia ; Layton Merida ; Cecelia Snell ; Dolores,Kym E ; Mukaya,Japheth E. Other Interventions: Discharge Summary Assessment (RN) Last Done: 05/28/19 13:30 DC Date/Time DO NOT enter until pt leaves facility: 05/28/19 14:23
[2019-06-18] MEDS ORDERED: CYANOCOBALAMIN 1000 MCG/ML VIAL IM SCH (09:00)
== END 2019-05-28 14:23 | disposition home or self-care (01) | DRG 641 ==
LOC: ED 18:39 → 2W 22:40